=== PATIENT | female | born 1940 | race Hispanic/Latino ===

== ENCOUNTER 2018-01-14 13:13 | Emergency (ER) | payer MEDICARE, OTHER ==
[~2018-01-14] VITALS: Ht 142.2 cm; Wt 73.0 kg
[~2018-01-14 13:13] MED LIST: ALENDRONATE SOD70 MG PO; DIFLUCAN100 MG PO; LASIX20 MG PO; LEVOTHYROXINE50 MCG PO; LOTRISONE CREAM15 GM TOP; METOPROLOL TART25 MG PO; MYRBETRIQ50 MG PO; OXYBUTYNIN CHLOR5 M1 PO; PRAVASTATIN SOD10 MG PO; RAMIPRIL5 MG PO; Z DILTIAZEM PO; Z TIROSINT PO; Z.0.METOPROLOL SUCC2 PO; Z.0.NEXIUM40 MG PO; Z.0.SIMVASTATIN40 MG PO
--- NOTE | 2018-01-14 14:24 | Diagnostic Imaging Report ---
Exam: Head CT without contrast History: Trauma, fall, hit head Comparison studies: None Technique: Axial images were obtained from the skull base to the vertex. Coronal and sagittal images reconstructed from the axial data. Dose modulation, iterative reconstruction, and/or weight based adjustment of the mA/kV was utilized to reduce the radiation dose to as low as reasonably achievable. Radiation dose: Total DLP: None are 21 mGy*cm. Estimated effective dose: DLP x 0.015 Intravenous contrast: None Findings: Scalp: Large 6.5 cm AP x 1.2 cm TV left frontal scalp hematoma. Bones: No fractures, blastic or lytic lesions. Brain sulci: Mildly prominent. Ventricles: Mild compensatory dilatation. No hydrocephalus. Extra-axial spaces: Mildly prominent extra axial spaces CSF density along the superior cerebellar convexity with adjacent focal remodeling of the occipital calvarium with local mass effect on the torcula and cerebellum is most compatible with small congenital arachnoid cyst. Parenchyma: No mass, acute hemorrhage or acute cortical vascular insults. Scattered and mildly confluent ill-defined hypodensities in the supratentorial white matter are nonspecific but most compatible with chronic microvascular ischemic changes. Disproportionate volume loss along the left greater than right anteromedial temporal lobes and hippocampi. Sellar/suprasellar region: No abnormalities. Craniocervical junction: Patent foramen magnum. No Chiari one malformation. Incidental findings: Atherosclerotic calcifications in the carotid siphons and near the vertebral basilar junction. Chronic inflammatory changes in the right mastoids which are partially opacified with sclerotic changes. IMPRESSION: 1. Large left frontal scalp hematoma without fracture. 2. No acute intracranial abnormalities. 3. Moderate chronic microvascular ischemic changes. 4. Mild generalized volume loss. Disproportionate volume loss along the anteromedial temporal lobes and hippocampi (left greater than right) which can be seen along the Alzheimer/dementia spectrum in the appropriate clinical setting. Signed by: Dr. River Hawley M.D. on 01/14/2018 2:21 PM
[2018-01-14 15:40] VITALS: BP 121/69
--- OUTSIDE RECORDS SUMMARY | 2018-01-22 12:05 | XMS REPORT ---
Author [facility] Address Unknown Phone Unavailable Care Team Providers Care Animal Caretaker Supervisor Name Role Phone Sowmya LAM Unavailable Unavailable Alhaji RICO Unavailable Unavailable Problems This patient has no known problems. Allergies, Adverse Reactions, Alerts This patient has no known allergies or adverse reactions. Medications This patient has no known medications. Results Test Description Test Time Test Comments Text Results Atomic Results Result Comments CT BRAIN WO 2018-01-14 14:15:00 [place] [address] Patient Name: TAMIKA KELLY MR #: [id number] : 1940 Age/Sex: 77/F Req #: [id number] Adm Physician: Ordered by: TORIE LAWRENCE ROUGHER OPERATOR Report #: [id number] Location: ER Room/Bed: Procedure: [id number] CT/CT BRAIN WO Exam Date: 01/14/18 Exam Time: 1335 REPORT STATUS: Signed Exam: Head CT without contrast History: Trauma, fall, hit head Comparison studies: None Technique: Axial images were obtained from the skull base to the vertex. Coronal and sagittal images reconstructed from the axial data. Dose modulation, iterative reconstruction, and/or weight based adjustment of the mA/kV was utilized to reduce the radiation dose to as low as reasonably achievable. Radiation dose: Total DLP: None are 21 mGy*cm. Estimated effective dose: DLP x 0.015 Intravenous contrast: None Findings: Scalp: Large 6.5 cm AP x 1.2 cm TV left frontal scalp hematoma. Bones: No fractures, blastic or lytic lesions. Brain sulci: Mildly prominent. Ventricles: Mild compensatory dilatation. No hydrocephalus. Extra-axial spaces: Mildly prominent extra axial spaces CSF density along the superior cerebellar convexity with adjacent focal remodeling of the occipital calvarium with local mass effect on the torcula and cerebellum is most compatible with small congenital arachnoid cyst. Parenchyma: No mass, acute hemorrhage or acute cortical vascular insults. Scattered and mildly confluent ill-defined hypodensities in the supratentorial white matter are nonspecific but most compatible with chronic microvascular ischemic changes. Disproportionate volume loss along the left greater than right anteromedial temporal lobes and hippocampi. Sellar/suprasellar region: No abnormalities. Craniocervical junction: Patent foramen magnum. No Chiari one malformation. Incidental findings: Atherosclerotic calcifications in the carotid siphons and near the vertebral basilar junction. Chronic inflammatory changes in the right mastoids which are partially opacified with sclerotic changes. IMPRESSION: 1. Large left frontal scalp hematoma without fracture. 2. No acute intracranial abnormalities. 3. Moderate chronic microvascular ischemic changes. 4. Mild generalized volume loss. Disproportionate volume loss along the anteromedial temporal lobes and hippocampi (left greater than right) which can be seen along the Alzheimer/dementia spectrum in the appropriate clinical setting. Signed by: Dr. Barb Hawley M.D. on 01/14/2018 2:21 PM Dictated By: BARB HAWLEY MD 1421 Transcribed By: MARY on 01/14/18 1421 COPY TO: TORIE LAWRENCE ROUGHER OPERATOR CHEST SINGLE (NOT PORTABLE) 2017-12-05 20:06:00 [place] [address] Patient Name: TAMIKA KELLY MR #: [id number] : 1940 Age/Sex: 76/F Req #: [id number] Adm Physician: Ordered by: REGGIE LEUNG NP Report #: [id number] Location: ER Room/Bed: Procedure: [id number] DX/CHEST SINGLE (NOT PORTABLE) Exam Date: 12/05/17 Exam Time: 1949 REPORT STATUS: Signed EXAMINATION: CHEST SINGLE (NOT PORTABLE) INDICATION: COMPARISON: Chest radiograph 07/24/2011 FINDINGS: AP view TUBES and LINES: None. LUNGS: Low lung volumes. Bibasilar atelectasis, unchanged. Central pulmonary vascular congestion. PLEURA: No pleural effusion or pneumothorax. HEART AND MEDIASTINUM: Stable mildly prominent cardiac silhouette. Mild calcifications in the aortic arch, unchanged. BONES AND SOFT TISSUES: Degenerative changes of both acromioclavicular joints. Soft tissues are unremarkable. UPPER ABDOMEN: No free air under the diaphragm. IMPRESSION: Stable mild enlargement of the cardiac silhouette with associated central pulmonary congestion. Signed by: Dr. Arlet Drake M.D. on 12/05/2017 8 :07 PM Dictated By: ARLET DRAKE MD 06 Transcribed By: MARY on 12/05/172006 COPY TO: REGGIE LEUNG NP
== END 2018-01-14 15:24 | disposition home or self-care (01) ==
LOC: ER 13:13
DX: S00.83XA Contusion of other part of head, initial encounter (principal); W06.XXXA Fall from bed, initial encounter; Y92.003 Bedroom of unspecified non-institutional (private) residence as the place of occurrence of the external cause; F03.90 Unspecified dementia, unspecified severity, without behavioral disturbance, psychotic disturbance, mood disturbance, and anxiety; I10 Essential (primary) hypertension; E78.5 Hyperlipidemia, unspecified; K21.9 Gastro-esophageal reflux disease without esophagitis; E07.9 Disorder of thyroid, unspecified
CPT/HCPCS: 70450; 99283

== ENCOUNTER 2019-02-20 14:06 | Emergency (ER) | payer MEDICARE, OTHER ==
[~2019-02-20] VITALS: Ht 142.2 cm; Wt 73.0 kg
--- NOTE | 2019-02-20 15:19 | Diagnostic Imaging Report ---
EXAMINATION: CHEST SINGLE (PORTABLE) INDICATION: Confusion COMPARISON: Chest radiograph of 12/05/2017 FINDINGS: LINES/TUBES:None LUNGS:The lungs are well-inflated. No focal consolidation. There is perihilar fullness and indistinctness of the pulmonary vasculature. PLEURA:No pleural effusion or pneumothorax. MEDIASTINUM:Cardiomediastinal silhouette is stably enlarged. Atherosclerotic calcifications of the thoracic aorta. BONES/SOFT TISSUES:No acute osseous injury. Old right acromioclavicular injury. ABDOMEN:No free air under the diaphragm. IMPRESSION: Cardiomegaly and mild pulmonary edema. Signed by: iRck Booker MD on 02/20/2019 3:16 PM
--- NOTE | 2019-02-20 15:22 | Diagnostic Imaging Report ---
EXAMINATION: ANKLE 3 + VIEWS RIGHT INDICATION: Ankle pain COMPARISON: None FINDINGS: No acute fracture or dislocation. Alignment is anatomic. The ankle mortise is intact and symmetric. The soft tissues appear unremarkable. Cortical regularity at the distal fibula is likely related to old healed fracture. Small plantar calcaneal spur. Atherosclerotic vascular calcifications. IMPRESSION: No acute osseous injury. Signed by: Rick Booker MD on 02/20/2019 3:19 PM
[2019-02-20] MEDS ORDERED: OXYBUTYNIN CHLOR5 M1 PO (15:27)
[2019-02-20 15:28] LABS: BASOPHILS % 0.1 % (0.0-1.0); EOSINOPHILS # (AUTO) 0.1 (0.0-0.4); EOSINOPHILS % 1.9 % (0.0-6.0); HEMATOCRIT 42.9 % (34.2-44.1); HEMOGLOBIN 14.5 g/dL (12.0-16.0); LYMPHOCYTES # (AUTO) 1.7 (1.0-3.2); LYMPHOCYTES % 22.6 % (18.0-39.1); MEAN CORPUSCULAR HEMOGLOBIN 29.8 pg (28-32); MEAN CORPUSCULAR HGB CONC 33.8 g/dL (31-35); MEAN CORPUSCULAR VOLUME 88.3 fL (81-99); MONOCYTES # (AUTO) 0.6 (0.2-0.8); MONOCYTES % 7.6 % (4.4-11.3); NEUTROPHILS % 67.5 % (38.7-80.0); PLATELET COUNT 237 x10e3/uL (140-360); RED BLOOD COUNT 4.86 x10e6/uL (3.6-5.1); RED CELL DISTRIBUTION WIDTH 13.2 % (11.7-14.4)
[2019-02-20] MEDS ORDERED: KETOROLAC TROMETHAMINE 30 MG/ML VIAL IV ONE (15:34)
[2019-02-20 15:38] LABS: BILIRUBIN,URINE NEGATIVE (NEGATIVE); CLARITY,URINE CLOUDY (CLEAR); COLOR,URINE YELLOW (YELLOW); KETONES,URINE NEGATIVE (NEGATIVE); LEUKOCYTE ESTERASE ,URINE SMALL (NEGATIVE); NITRITE,URINE NEGATIVE (NEGATIVE); PROTEIN,URINE DIPSTICK NEGATIVE (NEGATIVE); URINE UROBILINOGEN 0.2 mg/dL (0.2 - 1)
[2019-02-20] MEDS ORDERED: ONDANSETRON HCL INJ 2MG/ML 2ML 2 MG/ML VIAL IV PRN (15:45)
[2019-02-20 15:47] LABS: ALANINE AMINOTRANSFERASE 17 IU/L (0-55); ALBUMIN 3.1 g/dL (3.5-5.0); ALBUMIN/GLOBULIN RATIO 0.7 (0.8-2.0); ALKALINE PHOSPHATASE 84 IU/L (40-150); ANION GAP 14.2 mmol/L (8-16); BLOOD UREA NITROGEN 14 mg/dL (7-26); BUN/CREATININE RATIO 18 (6-25); CALCIUM 9.4 mg/dL (8.4-10.2); CARBON DIOXIDE 31 mmol/L (22-29); CHLORIDE 101 mmol/L (98-107); CREATINE KINASE 20 IU/L (29-168); CREATININE, SERUM 0.76 mg/dL (0.57-1.11); EST GLOMERULAR FILTRATION RATE > 60 ML/MIN (60-); GLUCOSE 136 mg/dL (74-118); INR 0.93; POTASSIUM 3.2 mmol/L (3.5-5.1); SODIUM 143 mmol/L (136-145)
[2019-02-20 15:50] LABS: BACTERIA,URINE MANY /HPF; EPITHELIAL CELLS,URINE RARE /LPF; WBC,URINE (MAN) 0-5 /HPF (0-5)
[2019-02-20 15:56] LABS: B-TYPE NATRIURETIC PEPTIDE2 32.9 pg/mL (0-100)
[2019-02-20 16:08] LABS: PARTIAL THROMBOPLASTIN TIME 30.7 seconds (23.8-35.5)
[2019-02-20] MEDS ORDERED: POTASSIUM CHLORIDE 20 MEQ TAB CR PO ONE (16:42)
[2019-02-20 16:51] VITALS: BP 154/60
--- NOTE | 2019-02-20 17:12 | Diagnostic Imaging Report ---
Examination: CT head without contrast Clinical Indication: Confusion Technique: Transaxial noncontrast images from the skull base through the vertex were obtained. Sagittal and coronal reformatted images were done. Dose modulation, iterative reconstruction, and/or weight based adjustment of the mA/kV was utilized to reduce the radiation dose to as low as reasonably achievable. Comparison: Head CT performed January 14, 2018. Findings: Scalp: No abnormalities. Bones: Intact. No fractures. No blastic or lytic lesions. Brain sulci: Moderate volume loss for patient's age with predominant involvement of the bilateral hippocampi. Ventricles: No hydrocephalus. Extra-axial space: No acute abnormalities. Superior cerebellar convexity arachnoid cyst, unchanged. Parenchyma: There are mild confluent areas of low-attenuation within subcortical and periventricular white matter, nonspecific, but could represent microvascular ischemic disease. No masses, hemorrhage, or acute or chronic cortical based vascular insults. Suprasellar region: No abnormalities. Craniocervical junction: The foramen magnum is patent. No Chiari one malformation. Incidental findings: Atherosclerotic calcification of the cavernous and supraclinoid internal carotid arteries. Impression: 1. No new acute intracranial abnormality. 2. Resolution of previously seen large left frontal scalp hematoma when compared to prior head CT performed January 14, 2018 3. Unchanged chronic microvascular ischemic change and volume loss with predominance at the bilateral hippocampi which can be seen in Alzheimer's. Signed by: Dr. Mariella Dubose M.D. on 02/20/2019 5:08 PM
== END 2019-02-20 17:41 | disposition home or self-care (01) ==
LOC: ER 14:06
DX: R41.0 Disorientation, unspecified (principal); G30.9 Alzheimer's disease, unspecified; F02.80 Dementia in other diseases classified elsewhere, unspecified severity, without behavioral disturbance, psychotic disturbance, mood disturbance, and anxiety; I10 Essential (primary) hypertension; E78.5 Hyperlipidemia, unspecified; E07.9 Disorder of thyroid, unspecified; K21.9 Gastro-esophageal reflux disease without esophagitis
CPT/HCPCS: 36415; 70450; 71045; 73610; 80053; 81001; 82140; 82150; 82550; 82553; 83605; 83880; 84484; 85025; 85610; 85730; 87040; 87086; 87186; 87400; 93005; 99284; J1885; J2405

== ENCOUNTER 2020-02-02 09:25 | Observation (INO) | payer MEDICARE, OTHER ==
[~2020-02-02] VITALS: Ht 142.2 cm; Wt 73.0 kg
--- NOTE | 2020-02-02 09:32 | Emergency Department Note ---
History of Present Illnes History of Present Illness History of Present Illness This is a 79 year old female with baseline dementia sent to the ED by family for denies weakness and decompensation of the past 2 weeks. Patient is accompanied by daughters who state mother's eating less and more lethargic and unable to sit up on her own. . Arrival Mode: [facility] Onset (how long ago): week(s) Radiation: Reports non-radiation Severity: moderate Duration (how long): week(s) Timing of current episode: constant Progression: worsening Chronicity: recurrent Context: Denies recent illness Relieving factors: none Associated symptoms: Reports confusion, Reports weakness Treatments prior to arrival: none Past Medical/Family History Physician Review I have reviewed the patient's past medical and family history. Any updates have been documented here. Past Medical History Past Medical History: Hypertension, Hypothyroidism, GERD, Hyperlipedemia Other Medical History: Dementia Past Surgical History: Hysterectomy Other Surgery: bladder suspension Social History Smoking Cessation: Never Smoker Other Last Tetanus: unknown Review of Systems ROS Narrative Unable to obtain ROS: Unable to obtain due to, other (baseline dementia, ROS obtained from family) Review of Systems Constitutional: Reports as per HPI, Reports malaise, Reports weakness EENTM: Reports no symptoms Cardiovascular: Reports no symptoms Respiratory: Reports no symptoms Gastrointestinal: Reports no symptoms Genitourinary: Reports no symptoms Musculoskeletal: Reports no symptoms Integumentary: Reports no symptoms Neurological: Reports as per HPI, Reports weakness Psychological: Reports no symptoms Endocrine: Reports no symptoms Hematological/Lymphatic: Reports no symptoms Physical Exam Related Data Allergies: Coded Allergies: No Known Allergies (Unverified , 02/02/20) Vital signs reviewed: Yes Physical Exam CONSTITUTIONAL Constitutional: Present well-developed, Present cachectic, Present ill appearing HENT HENT: Present normocephalic, Present atraumatic, Present oropharynx clear/moist, Present nose normal HENT L/R: Present left ext ear normal, Present right ext ear normal EYES Eyes: Reports PERRL, Reports conjunctivae normal NECK Neck: Present ROM normal PULMONARY Pulmonary: Present effort normal, Present breath sounds normal CARDIOVASCULAR Cardiovascular: Present regular rhythm, Present heart sounds normal, Present capillary refill normal, Present normal rate GASTROINTESTINAL Abdominal: Present soft, Present nontender, Present bowel sounds normal GENITOURINARY Genitourinary: Present exam deferred SKIN Skin: Present warm, Present dry MUSCULOSKELETAL Musculoskeletal: Present ROM normal NEUROLOGICAL Neurological: Present alert PSYCHOLOGICAL Results Laboratory Lab results reviewed: Yes Laboratory comments Laboratory Tests Test 02/02/20 12:52 02/02/20 10:46 02/02/20 10:35 02/02/20 09:45 Urine Color Yellow (YELLOW) Urine Clarity Clear (CLEAR) Urine pH 6.5 (5 - 7) Urine Specific [place] >=1.030 (1.010-1.025) Urine Protein Negative (NEGATIVE) Urine Glucose (UA) Negative (NEGATIVE) Urine Ketones Negative (NEGATIVE) Urine Blood Negative (NEGATIVE) Urine Nitrite Negative (NEGATIVE) Urine Bilirubin Negative (NEGATIVE) Urine Urobilinogen 0.2 mg/dL (0.2 - 1) Urine Leukocyte Esterase Negative (NEGATIVE) Urine RBC 0-5 /HPF (0-5) Urine WBC 0-5 /HPF (0-5) Urine Epithelial Cells Few /LPF (NONE) Urine Bacteria Rare /HPF (NONE) Sodium Level 141 mmol/L (136-145) Potassium Level 3.3 mmol/L (3.5-5.1) Chloride Level 104 mmol/L (98-107) Carbon Dioxide Level 25 mmol/L (22-29) Anion Gap 15.3 mmol/L (8-16) Blood Urea Nitrogen 12 mg/dL (7-26) Creatinine 0.70 mg/dL (0.57-1.11) Estimat Glomerular Filtration Rate > 60 ML/MIN (60-) BUN/Creatinine Ratio 17 (6-25) Glucose Level 94 mg/dL (74-118) Calcium Level 9.4 mg/dL (8.4-10.2) Total Bilirubin 0.5 mg/dL (0.2-1.2) Aspartate Amino Transf (AST/SGOT) 22 IU/L (5-34) Alanine Aminotransferase (ALT/SGPT) 14 IU/L (0-55) Alkaline Phosphatase 76 IU/L (40-150) Ammonia 97 UG/DL (31-123) Creatine Kinase 41 IU/L (29-168) Creatine Kinase MB 2.10 ng/mL (0-4.3) Troponin I < 0.001 ng/mL (0-0.300) Total Protein 7.3 g/dL (6.5-8.1) Albumin 3.5 g/dL (3.5-5.0) Globulin 3.8 g/dL (2.3-3.5) Albumin/Globulin Ratio 0.9 (0.8-2.0) Lipase 49 U/L (8-78) White Blood Count 8.25 x10e3/uL (4.8-10.8) Red Blood Count 5.00 x10e6/uL (3.6-5.1) Hemoglobin 14.6 g/dL (12.0-16.0) Hematocrit 44.5 % (34.2-44.1) Mean Corpuscular Volume 89.0 fL (81-99) Mean Corpuscular Hemoglobin 29.2 pg (28-32) Mean Corpuscular Hemoglobin Concent 32.8 g/dL (31-35) Red Cell Distribution Width 13.2 % (11.7-14.4) Platelet Count 187 x10e3/uL (140-360) Neutrophils (%) (Auto) 65.0 % (38.7-80.0) Lymphocytes (%) (Auto) 26.3 % (18.0-39.1) Monocytes (%) (Auto) 6.9 % (4.4-11.3) Eosinophils (%) (Auto) 1.2 % (0.0-6.0) Basophils (%) (Auto) 0.4 % (0.0-1.0) Neutrophils # (Auto) 5.4 (2.1-6.9) Lymphocytes # (Auto) 2.2 (1.0-3.2) Monocytes # (Auto) 0.6 (0.2-0.8) Eosinophils # (Auto) 0.1 (0.0-0.4) Basophils # (Auto) 0.0 (0.0-0.1) Absolute Immature Granulocyte (auto 0.02 x10e3/uL (0-0.1) B-Type Natriuretic Peptide 12.9 pg/mL (0-100) Imaging Imaging results reviewed: Yes Impressions IMPRESSION: 1. Negative for acute abdominopelvic process. 2. Diastases of the anterior abdominal wall musculature with superimposed umbilical hernia containing nondilated loops of small bowel and colon. Negative for bowel obstruction or evidence of incarceration. 3. Uncomplicated diffuse sigmoid diverticulosis. 4. Moderate hiatal hernia. 5. Postsurgical change of cholecystectomy. 6. Solitary 5 mm right middle lobe nodule. If patient is at high risk for lung cancer consider optional CT chest follow-up at 12 months. If patient is low risk for lung cancer no follow-up is required. Assessment & Plan Medical Decision Making MDM 79-year-old female arrived to the ED by family with concerns of reduced oral intake, worsening dementia and change in mental status. No acute abnormalities noted lab work or imaging, however, given patient's change in mental status she was admitted for further workup and management. States patient had a UTI and was on antibiotics, initial UA in the ED was unremarkable, urine culture sent to ensure if no multidrug resistant organisms are present. Assessment & Plan Final Impression: (1) AMS (altered mental status) (2) Failure to thrive Depart Disposition: ADMITTED Home Meds Reported Medications Oxybutynin Chloride (OXYBUTYNIN CHLORIDE ER) 5 Mg Tab.er.24, 5 MG PO HS 02/20/19 Alendronate Sodium (ALENDRONATE SODIUM) 70 Mg Tablet, 70 MG PO WEEKLY TAKE ON Sunday12/05/17 Levothyroxine Sodium (LEVOTHYROXINE SODIUM) 50 Mcg Tablet, 50 MCG PO DAILY, #30 TAB 12/05/17 Metoprolol Tartrate (METOPROLOL TARTRATE) 25 Mg Tablet, 25 MG PO BID, TAB 12/05/17 Pravastatin Sodium (PRAVASTATIN SODIUM) 10 Mg Tablet, 10 MG PO DAILY 12/05/17 Furosemide (LASIX) 20 Mg Tablet, 20 MG PO DAILY, #30 TAB 03/25/14 NAZIA HARRY, Feb 02, 2020 09:31
[2020-02-02 10:02] LABS: BASOPHILS % 0.4 % (0.0-1.0); EOSINOPHILS # (AUTO) 0.1 (0.0-0.4); EOSINOPHILS % 1.2 % (0.0-6.0); HEMATOCRIT 44.5 % (34.2-44.1); HEMOGLOBIN 14.6 g/dL (12.0-16.0); LYMPHOCYTES # (AUTO) 2.2 (1.0-3.2); LYMPHOCYTES % 26.3 % (18.0-39.1); MEAN CORPUSCULAR HEMOGLOBIN 29.2 pg (28-32); MEAN CORPUSCULAR HGB CONC 32.8 g/dL (31-35); MONOCYTES # (AUTO) 0.6 (0.2-0.8); MONOCYTES % 6.9 % (4.4-11.3); NEUTROPHILS # (AUTO) 5.4 (2.1-6.9); PLATELET COUNT 187 x10e3/uL (140-360); RED CELL DISTRIBUTION WIDTH 13.2 % (11.7-14.4)
--- NOTE | 2020-02-02 10:21 | Diagnostic Imaging Report ---
TECHNIQUE: Frontal view of the chest. INDICATION: ^Y ^AMS ^[id number] ^0950 COMPARISON: 02/20/2019 DISCUSSION: Limited evaluation due to portable technique. Lines and hardware: Overlying EKG leads are noted. Heart and mediastinum: Mild cardiomegaly and tortuous thoracic aorta are stable. Lungs and pleura: No definite new focal consolidation. Central vascular congestion and prominent interstitial markings are noted. Negative for large effusion or pneumothorax. Soft tissues and bones: No acute abnormality. Stable severe degenerative changes of the shoulder joints with full-thickness rotator cuff tears. IMPRESSION: Stable cardiomegaly and central vascular congestion. No definite new focal infiltrate. Signed by: Lyle Stephen MD on 02/02/2020 10:17 AM
--- NOTE | 2020-02-02 10:45 | Diagnostic Imaging Report ---
EXAMINATION: Head CT HISTORY: 79-year-old female with alteration of consciousness, weakness COMPARISON: Head CT 02/20/2019 TECHNIQUE: Helical axial images of the head were obtained. Dose modulation, iterative reconstruction, and/or weight based adjustment of the mA/kV was utilized to reduce the radiation dose to as low as reasonably achievable. FINDINGS: Parenchyma: 1. Persistent moderate chronic microvascular ischemic changes. 2. No mass or hemorrhage. No CT evidence of acute territorial vascular insult. Extra-axial spaces:Unchanged superior cerebellar benign arachnoid cyst . Brain volume: Disproportionate volume loss along the left greater than right anteromedial temporal lobes and hippocampi, which can be seen in patient's with Alzheimer's disease in the correct clinical setting. Ventricles: No hydrocephalus or displacement. Arteries: No density suggestive of thrombus. Dural sinuses: No abnormal density. Foramen magnum: No mass, Chiari malformation, or basilar invagination. Sella: No obvious mass. Paranasal/mastoid sinuses: Imaged portions unremarkable. Skull/Scalp: No lytic or blastic lesions. No fractures. IMPRESSION: 1. No acute intracranial hemorrhage or cortical infarcts. 2. Stable moderate chronic microvascular ischemic changes compared to CT of 02/20/2019. 3. Persistent disproportionate medial temporal/hippocampal volume loss as above. Signed by: Dr. Michaela Bell M.D. on 02/02/2020 10:42 AM
[2020-02-02 11:01] LABS: CLARITY,URINE CLEAR (CLEAR); COLOR,URINE YELLOW (YELLOW)
[2020-02-02 11:02] LABS: BILIRUBIN,URINE NEGATIVE (NEGATIVE); KETONES,URINE NEGATIVE (NEGATIVE); LEUKOCYTE ESTERASE ,URINE NEGATIVE (NEGATIVE); NITRITE,URINE NEGATIVE (NEGATIVE); PROTEIN,URINE DIPSTICK NEGATIVE (NEGATIVE); URINE UROBILINOGEN 0.2 mg/dL (0.2 - 1)
[2020-02-02 11:05] LABS: BACTERIA,URINE RARE /HPF; EPITHELIAL CELLS,URINE FEW /LPF; RBC,URINE 0-5 /HPF (0-5); WBC,URINE (MAN) 0-5 /HPF (0-5)
[2020-02-02 11:15] LABS: ALANINE AMINOTRANSFERASE 14 IU/L (0-55); ALBUMIN 3.5 g/dL (3.5-5.0); ALBUMIN/GLOBULIN RATIO 0.9 (0.8-2.0); ALKALINE PHOSPHATASE 76 IU/L (40-150); ANION GAP 15.3 mmol/L (8-16); BLOOD UREA NITROGEN 12 mg/dL (7-26); BUN/CREATININE RATIO 17 (6-25); CALCIUM 9.4 mg/dL (8.4-10.2); CARBON DIOXIDE 25 mmol/L (22-29); CHLORIDE 104 mmol/L (98-107); CREATINE KINASE 41 IU/L (29-168); EST GLOMERULAR FILTRATION RATE > 60 ML/MIN (60-); GLUCOSE 94 mg/dL (74-118); POTASSIUM 3.3 mmol/L (3.5-5.1); SODIUM 141 mmol/L (136-145)
--- NOTE | 2020-02-02 12:24 | Diagnostic Imaging Report ---
CT of the abdomen and pelvis with contrast TECHNIQUE: CT of the abdomen and pelvis WITH intravenous contrast and WITHOUT oral contrast. Dose modulation, iterative reconstruction, and/or weight-based adjustment of the mA/kV was utilized to reduce the radiation dose to as low as reasonably achievable. IV CONTRAST: 100 mL of Isovue-370 ORAL CONTRAST: None RADIATION DOSE: Total DLP: 674 mGy*cm COMPLICATIONS: None INDICATION: ^Y ^AMS ^[id number] ^1150. COMPARISON: None. FINDINGS: LOWER THORAX: Calcified granuloma is noted at the left lung base. Moderate hiatal hernia is noted. A 5 mm right middle lobe nodule is noted on image #3. HEPATOBILIARY: No focal hepatic lesions. Gallbladder is surgically absent. Focal fatty infiltration along the falciform ligament is noted. No biliary ductal dilatation. SPLEEN: No splenomegaly. PANCREAS: No focal masses or ductal dilatation. ADRENALS: No adrenal nodules. KIDNEYS/URETERS: Symmetric cortical enhancement without hydronephrosis. Ureters are not dilated. Negative for surrounding inflammatory changes. PELVIC ORGANS/BLADDER: Urinary bladder is unremarkable. Uterus is surgically absent. PERITONEUM/RETROPERITONEUM: No free air or fluid. [place] anterior abdominal hernia is noted with diastases of the abdominal wall/or with superimposed umbilical hernia which contains nondilated loops of small bowel. LYMPH NODES: No lymphadenopathy. VESSELS: Unremarkable. GI TRACT: Negative for bowel obstruction. Stomach is decompressed. Moderate colonic stool retention is noted. Numerous diverticula are identified of the sigmoid colon without surrounding inflammatory changes. Normal appendix is noted. BONES AND SOFT TISSUES: No acute osseous abnormality. Moderate to severe multilevel degenerative changes of the spine are noted. Negative for suspicious lytic or blastic lesion. Soft tissues are unremarkable. IMPRESSION: 1. Negative for acute abdominopelvic process. 2. Diastases of the anterior abdominal wall musculature with superimposed umbilical hernia containing nondilated loops of small bowel and colon. Negative for bowel obstruction or evidence of incarceration. 3. Uncomplicated diffuse sigmoid diverticulosis. 4. Moderate hiatal hernia. 5. Postsurgical change of cholecystectomy. 6. Solitary 5 mm right middle lobe nodule. If patient is at high risk for lung cancer consider optional CT chest follow-up at 12 months. If patient is low risk for lung cancer no follow-up is required. Signed by: Lyle Stephen MD on 02/02/2020 12:21 PM
[2020-02-02] MEDS ORDERED: CEFEPIME 1GM/NS 0.9% 50 ML 50 ML IV SCH (12:40)
[2020-02-02 13:30] VITALS: BP 151/98
--- NOTE | 2020-02-02 13:30 | NUR ---
PATIENT RECEIVED FROM ER PER STRETCHER ALERT AND ORIENTED X 1. MOSTLY TRINIDADIAN SPEAKING, DAUGHTER AT BED SIDE. SKIN WARM AND DRY TO TOUCH. RESPIRATION EVEN AND UNLABORED, ABDOMEN SOFT, LARGE, AND ROUND WITH + BS. REQUESTED AND RECEIVED A CUP OF ICE WATER. TELEMETRY BOX [address] BED IN LOWER POSITION, CALL LIGHT AT REACH, BED ALARM ACTIVATED. FAMILY MEMBER AT BED SIDE.
[2020-02-02 13:32] VITALS: BP 151/98
[2020-02-02] MEDS ORDERED: SODIUM CHLORIDE 0.9% 50ML 50 ML ONE (13:38)
[2020-02-02] MEDS ORDERED: IOPAMIDOL 370 MG/ML 200 ML INFUS..BTL INJ ONE (13:38)
--- NOTE | 2020-02-02 15:55 | NUR ---
PATIENT IN BED TALKING TO SELF, REDIRECTED BY FAMILY MEMBER AND STAFF. REPOSITIONED IN BED. CALL LIGHT AT REACH.
[2020-02-02] MEDS: LORAZEPAM INJ 2 MG/ML VIAL IV PRN ×2 (17:00→23:00)
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
[2020-02-02] MEDS ORDERED: ACETAMINOPHEN 325 MG TAB PO PRN (17:45)
[2020-02-02] MEDS ORDERED: ONDANSETRON HCL INJ 2MG/ML 2ML 2 MG/ML VIAL IV PRN (17:45)
[2020-02-02] MEDS ORDERED: HYDRALAZINE HCL 20 MG/ML VIAL IV PRN (17:45)
[2020-02-02 17:54] VITALS: BP 125/98
--- NOTE | 2020-02-02 17:55 | NUR ---
PATIENT IN BED WITH HEAD OF BED ELEVATED, NO MORE AGITATION NOTED. WILL CONTINUE TO MONITOR.
[2020-02-02] MEDS ORDERED: POTASSIUM CHLORIDE 20 MEQ TAB CR PO ONE (18:00)
[2020-02-02] MEDS: METOPROLOL TARTRATE 25 MG TAB PO SCH (18:06)
--- NOTE | 2020-02-02 19:04 | NUR ---
BED SIDE SHIFT REPORT GIVEN TO ON COMING NURSE. PATIENT IN BED RESTING WITH NO S/S OF DISTRESS. CALL LIGHT AT REACH.
[2020-02-02] MEDS ORDERED: LORAZEPAM INJ 2 MG/ML VIAL IV ONE (19:30)
--- NOTE | 2020-02-02 19:36 | NUR ---
PATIENT HAS LEFT FOR MRI, ATIVAN GIVEN PREVIOUSLY PER PHYSICIAN'S ORDERS.
[2020-02-02 19:40] VITALS: BP 117/74
[2020-02-02] MEDS: OXYBUTYNIN CHLORIDE XL 5 MG TAB PO SCH (20:29)
[2020-02-02 20:30] VITALS: BP 117/74
--- NOTE | 2020-02-02 22:23 | Diagnostic Imaging Report ---
History: Altered mental status. Comparison studies: Head CTs on 02/20/2019 and 02/02/2020 Technique: Sagittal T2; axial DWI, FLAIR, MPGR, T1, Coronal FLAIR. Intravenous contrast: None Findings: Scalp: Normal in signal . No masses . Bone marrow: Normal in signal intensity. Extra-axial: No masses or fluid collections. Brain sulci: Mildly prominent. Ventricles: Moderately prominent there is disproportionate dilatation of the left temporal horn is probably due to volume loss in the left temporal pole perhaps due to previous trauma. No acute hydrocephalus. Parenchyma: Multiple T2 FLAIR hyperintense foci in the periventricular, supratentorial white matter and the bones are nonspecific microvascular ischemic changes. No masses, hemorrhage, acute or chronic cortical ischemic insults. Suprasellar region: No abnormalities. Craniocervical junction: No abnormalities. Patent foramen magnum. No Chiari one malformation. Vessels: Normal flow-voids in the arteries and sinuses. IMPRESSION: 1. No acute abnormalities in spite of motion artifacts. 2. No changes when compared to the most recent head CT on 02/02/2020 Chronic findings: Mild generalized volume loss. Moderately dilated ventricles but no acute hydrocephalus. Moderate microvascular ischemic changes in the supratentorial white matter and in the rocky Signed by: Dr. Ag Quiroz M.D. on 02/02/2020 10:19 PM
--- NOTE | 2020-02-02 23:45 | NUR ---
PATIENT PRESENTS AGITATION BEGAN TO MOVE ALL OVER BED AND REMOVE TELEMONITOR AND GOWN. ATIVAN WAS GIVEN ORDERED. PATIENT NOW RESTING IN BED COMFORTABLY, WILL CONTINUE TO MONITOR.
[2020-02-03] VITALS (8 sets, daily range): BP systolic 93–153; BP diastolic 57–74
[2020-02-03] MEDS ORDERED: LEVOTHYROXINE SODIUM 50 MCG TAB PO SCH (06:00)
[2020-02-03] MEDS: LORAZEPAM INJ 2 MG/ML VIAL IV PRN ×3 (06:10→13:25)
[2020-02-03 06:54] LABS: BASOPHILS % 0.1 % (0.0-1.0); EOSINOPHILS # (AUTO) 0.1 (0.0-0.4); EOSINOPHILS % 1.2 % (0.0-6.0); HEMATOCRIT 41.2 % (34.2-44.1); HEMOGLOBIN 13.9 g/dL (12.0-16.0); LYMPHOCYTES # (AUTO) 1.8 (1.0-3.2); LYMPHOCYTES % 22.4 % (18.0-39.1); MEAN CORPUSCULAR HEMOGLOBIN 30.3 pg (28-32); MEAN CORPUSCULAR HGB CONC 33.7 g/dL (31-35); MONOCYTES # (AUTO) 0.6 (0.2-0.8); MONOCYTES % 7.1 % (4.4-11.3); NEUTROPHILS # (AUTO) 5.5 (2.1-6.9); PLATELET COUNT 187 x10e3/uL (140-360); RED BLOOD COUNT 4.58 x10e6/uL (3.6-5.1); RED CELL DISTRIBUTION WIDTH 13.2 % (11.7-14.4)
[2020-02-03 07:45] LABS: ALANINE AMINOTRANSFERASE 13 IU/L (0-55); ALBUMIN 3.2 g/dL (3.5-5.0); ALBUMIN/GLOBULIN RATIO 0.9 (0.8-2.0); ALKALINE PHOSPHATASE 68 IU/L (40-150); ANION GAP 14.5 mmol/L (8-16); BLOOD UREA NITROGEN 12 mg/dL (7-26); BUN/CREATININE RATIO 17 (6-25); CALCIUM 8.9 mg/dL (8.4-10.2); CARBON DIOXIDE 25 mmol/L (22-29); CHLORIDE 106 mmol/L (98-107); CREATININE, SERUM 0.69 mg/dL (0.57-1.11); EST GLOMERULAR FILTRATION RATE > 60 ML/MIN (60-); GLUCOSE 100 mg/dL (74-118); POTASSIUM 3.5 mmol/L (3.5-5.1); SODIUM 142 mmol/L (136-145)
--- NOTE | 2020-02-03 08:15 | NUR ---
RECEIVED PATIENT SLEEPING. RESPIRATIONS EVEN AND BREATHING UNLABORED. PT IN NO DISTRESS. NO C/O PAIN VERBALIZED AT THIS TIME. TELE APPLIED. WILL CONTINUE TO MONITOR.
--- NOTE | 2020-02-03 08:24 | NUR ---
WILL NEED PHYSICAL THERAPY NOTES PRIOR TO SUBMITTING CLINICALS, CALLED AND SPOKE WITH SON VITA, HE STATES HE WANTS TO DISCUSS WITH SISTER, SHE HAS BEEN TO [facility] BUT MAY CHOOSE [facility] SINCE Enrike JAIME GOES THERE. HE CALLED BACK AND GAVE CHOICE FOR [facility] SINCE THAT IS WHERE PRIMARY DOC GOES. WILL SUBMIT CLINICALS WHEN GET INFORMATION.
[2020-02-03] MEDS: METOPROLOL TARTRATE 25 MG TAB PO SCH ×2 (09:00→17:55)
[2020-02-03] MEDS: FUROSEMIDE 20 MG TAB PO SCH (11:30)
[2020-02-03 12:31] LABS: CREATINE KINASE MB 1.8 ng/mL (0-4.3)
--- NOTE | 2020-02-03 14:52 | NUR ---
Nutrition Screen Note RD Recommendation for Physician: Continue diet as ordered Plan of Care: RD following, monitoring for tolerance and adequacy Nutrition reason for involvement: RN Consult Primary Diagnose(s):Altered mental status/failure to thrive Ht:56 in Wt:161lb BMI: 36.1kg/m2 IBW:80lb RD Assessment:(02/03/2020) Initial encounter with patient. Visited Pt with nurse on duty that ordered nutrition consult. Pt with an altered mental status who is Danish speaking. Pt needs to be fed. Poor dentition/missing teeth/partial dentition, but was able to tolerate and chew a regular consistency without difficulty. Pt had a dose of Ativan the night before. No N,V,D reported. Can provide an oral supplement to maximize nutrition. Pt may discharge to home soon. Current Diet: Cardiac diet Malnutrition Evaluation (02/03/2020) The patient does not meet criteria for a specified degree of malnutrition at this time. Will re-evaluate at follow-up as appropriate. Diet Adequacy: Meeting calorie needs, Meeting protein needs, Meeting fluid needs Tolerance: Tolerating PO Nutrition Care Level: Rico Rodriguez RD,LD[facility]
[2020-02-03] MEDS: FAMOTIDINE 20 MG TAB PO SCH (17:55)
[2020-02-03] MEDS ORDERED: POTASSIUM CHLORIDE 20 MEQ TAB CR PO NR ×2 (18:00→19:30)
--- NOTE | 2020-02-03 19:12 | NUR ---
RECEIVED PT IN BED AOX3 ,DENIES PAIN RESPIRATIONS ARE EVEN AND UNLABORED .SKIN WARM AND DRY TO TOUCH CALL LIGHT WITH IN REACH .CONTINUE TO MONITOR . Addendum: 02/03/20 at 1935 by Carie Mayfield RN WRONG PT
--- NOTE | 2020-02-03 19:36 | NUR ---
RECEIVED PT IN BED SLEEPING ,RESPIRATIONS ARE EVEN AND UNLABORED .CALL LIGHT WITH IN REACH FAMILY AT THE BEDSIDE .PT IS DNAR .FAMILY AT THE BEDSIDE CALL LIGHT WITH IN REACH ,CONTINUE TO MONITOR .
--- NOTE | 2020-02-03 19:44 | NUR ---
PT RESTING IN BED. RESPIRATIONS EVEN AND BREATHING UNLABORED. PT IN NO DISTRESS AND NO C/O OF PAIN VERBALIZED. TELE APPLIED. BED ALARM ON. SON AT THE BEDSIDE. BEDSIDE SHIFT REPORT GIVEN TO ONCOMING NURSE.
[2020-02-03] MEDS: OXYBUTYNIN CHLORIDE XL 5 MG TAB PO SCH (21:34)
[2020-02-03] MEDS ORDERED: LORAZEPAM INJ 2 MG/ML VIAL IM PRN (21:45)
[2020-02-04] VITALS (8 sets, daily range): BP systolic 112–142; BP diastolic 56–99
--- NOTE | 2020-02-04 00:07 | History and Physical ---
PRIMARY CARE PHYSICIAN: Maggie Stephen MD CONSULTING PHYSICIAN: Dr. Francisco Lindsey with Psychiatry. CHIEF COMPLAINT: Altered mental status from baseline. HISTORY OF PRESENT ILLNESS: The patient is a 79-year-old female with baseline dementia, sent to the emergency department via EMS due to decompensation over the past two weeks. The daughter of the patient accompanied her in the emergency department stating that she was eating less, more lethargic, and unable to sit up on her own. She had a recent UTI, was on antibiotics with urinalysis negative in the emergency department. The patient's son, Williams is currently at her bedside in room 285. States that patient has been seeing and speaking to relatives such as her mother. The patient is eating some bread and is in no acute distress. PAST MEDICAL HISTORY: Hypothyroidism, hypertension, hyperlipidemia, GERD, dementia, UTI, osteoporosis, history of bilateral groin rash infection, fungal infection, small abscess with failure of outpatient treatment. PAST SURGICAL HISTORY: Hysterectomy and bladder suspension. FAMILY HISTORY: Noncontributory. SOCIAL HISTORY: The patient is mostly Lao speaking. The patient lives at home with family. No previous use of tobacco, alcohol, or illicit drugs. ALLERGIES: NO KNOWN ALLERGIES. REVIEW OF SYSTEMS: The patient has altered mental status and is unable to answer questions related to ROS. PHYSICAL EXAMINATION: VITAL SIGNS: Temperature 97.5, afebrile, pulse 68, blood pressure 139/68, respirations 16, oxygen saturation 100% on room air. Height 4 feet 8 inches, weight 161 pounds, BMI 36.09. GENERAL: Supine in bed. No acute distress. Confused. LUNGS: Clear to auscultation. Respiratory pattern even and unlabored. HEENT: Sclerae anicteric. NECK: Supple. CARDIOVASCULAR: Regular rate and rhythm without murmur. ABDOMEN: Bowel sounds positive. Soft, obese. EXTREMITIES: No pitting edema. No clubbing, cyanosis, or signs of DVT. NEUROLOGICAL: GCS 13, eye 3, verbal 4, motor 6. The patient opened her eyes and opened her mouth to simple commands. Nonfocal. LABORATORY DATA: WBCs 8.04, hemoglobin 13.9, hematocrit 41.2, platelets 187, neutrophils 69%. Sodium 142, potassium 3.5, chloride 106, CO2 25, BUN 12 and creatinine 0.69, estimated GFR greater than 60, glucose 100, calcium 8.9, total bilirubin 0.6, AST 23, ALT 13, alkaline phosphatase 68. Total protein 6.7, albumin 3.2. TSH 5.166. Today, creatine kinase 51, CK-MB 1.8, troponin I 0.001. Cardiac biomarkers negative x3. Urinalysis done on 02/01, negative. Coronavirus PCR collected on 02/01, is pending. On 02/01, potassium level 3.3, ammonia level 97, and B-type natriuretic peptide 12.9, and lipase 49. IMAGING: CT of the abdomen and pelvis showed negative for acute abdominopelvic process, diastasis of anterior abdominal wall musculature with superimposed umbilical hernia containing nondilated loops of small bowel and colon, negative for bowel obstruction or evidence of incarceration, uncomplicated diffuse sigmoid diverticulosis, moderate hiatal hernia, postsurgical change of cholecystectomy, solitary 5 mm right middle lobe nodule. CT of the brain showed no acute intracranial hemorrhage or cortical infarcts. Stable moderate chronic microvascular ischemic changes compared to CT of 02/20/2019. Persistent disproportionate medial temporal/hippocampal volume loss. Chest x-ray showed stable cardiomegaly and central vascular congestion. No definite new focal infiltrate. MRI of the brain showed no acute abnormalities, no changes when compared with most recent head CT on 02/01. Mild generalized volume loss. Moderately dilated ventricles, but no acute hydrocephalus. Moderate microvascular ischemic changes in the supratentorial white matter and in the rocky. Bilateral carotid Doppler ultrasound on the right side showed no evidence of significant carotid stenosis. On the left side showed evidence of carotid disease without significant carotid stenosis on the preliminary report. ASSESSMENT/PLAN: 1. Altered mental status from baseline with failure to thrive/decreased oral intake, underlying dementia. The patient is currently calm, is beginning to eat some. No acute distress. Psychiatry has been consulted. Appreciate recommendations. Monitor closely. 2. Positive for recent urinary tract infection. Urinalysis in the ER was negative. We will await final culture and sensitivity results. 3. Controlled hypertension. Blood pressure 139/68. Continue home medications and monitor. 4. Hypothyroidism. TSH 5.166. We will increase dose from 50 mcg to 75 mcg daily. 5. Hyperlipidemia. In 2018, lipid levels were within normal limits. Resume home medications. 6. Gastroesophageal reflux disease/prophylaxis. Continue Pepcid. 7. Acute hypokalemia. Potassium level 3.5 (3.3). We will give an extra 20 mEq of potassium chloride orally today. 8. Possible end of life (natural progression). Case was discussed with the patient's son at bedside. Resuscitation status changed from full code to DNR. After discussing with Williams. 9. Obesity with BMI 36.09. Dietary restrictions. DISCHARGE DISPOSITION: [facility] as Dr. Stephen goes there. History and physical, observation status, billing code [id number]. Dictated by Anurag Rivera NP MD CLARI MessinaP/MODL /[id number]
--- NOTE | 2020-02-04 05:27 | NUR ---
PT WAS AGITATED EARLIER IN THE SHIFT .PT PULLED IV OUT .GIVEN ATIVAN IM .PT RESTING NOW CALL LIGHT WITH IN REACH .CONTINUE TO MONITOR
[2020-02-04] MEDS ORDERED: LEVOTHYROXINE SODIUM 50 MCG TAB PO SCH (06:00)
[2020-02-04] MEDS: LEVOTHYROXINE SODIUM 75 MCG TAB PO SCH (06:00)
[2020-02-04 06:36] LABS: BASOPHILS % 0.2 % (0.0-1.0); EOSINOPHILS # (AUTO) 0.1 (0.0-0.4); EOSINOPHILS % 1.3 % (0.0-6.0); HEMATOCRIT 42.8 % (34.2-44.1); HEMOGLOBIN 14.5 g/dL (12.0-16.0); LYMPHOCYTES # (AUTO) 2.8 (1.0-3.2); LYMPHOCYTES % 27.9 % (18.0-39.1); MEAN CORPUSCULAR HEMOGLOBIN 29.9 pg (28-32); MEAN CORPUSCULAR HGB CONC 33.9 g/dL (31-35); MEAN CORPUSCULAR VOLUME 88.2 fL (81-99); MONOCYTES # (AUTO) 0.8 (0.2-0.8); NEUTROPHILS # (AUTO) 6.2 (2.1-6.9); NEUTROPHILS % 62.3 % (38.7-80.0); PLATELET COUNT 238 x10e3/uL (140-360); RED BLOOD COUNT 4.85 x10e6/uL (3.6-5.1); RED CELL DISTRIBUTION WIDTH 13.3 % (11.7-14.4)
[2020-02-04 06:37] LABS: ANION GAP 15.8 mmol/L (8-16); BLOOD UREA NITROGEN 13 mg/dL (7-26); BUN/CREATININE RATIO 19 (6-25); CALCIUM 9.3 mg/dL (8.4-10.2); CARBON DIOXIDE 23 mmol/L (22-29); CHLORIDE 107 mmol/L (98-107); CREATININE, SERUM 0.69 mg/dL (0.57-1.11); EST GLOMERULAR FILTRATION RATE > 60 ML/MIN (60-); GLUCOSE 110 mg/dL (74-118); MAGNESIUM 2.2 MG/DL (1.3-2.1); PHOSPHORUS 3.1 MG/DL (2.3-4.7); POTASSIUM 3.8 mmol/L (3.5-5.1); SODIUM 142 mmol/L (136-145)
--- NOTE | 2020-02-04 06:40 | NUR ---
RECEIVED BEDSIDE SHIFT REPORT FROM OFF GOING NURSE. PATIENT IS IN STABLE CONDITION, NO S/S OF DISTRESS NOTED. CALL LIGHT WITHIN REACH. BED IN THE LOWEST POSITION.
--- NOTE | 2020-02-04 07:06 | NUR ---
BEDSIDE REPORT GIVEN TO THE ONCOMING NURSE
--- NOTE | 2020-02-04 07:35 | NUR ---
BED PUMP APPLIED TO MATTRESS FOR AIR.
[2020-02-04] MEDS: METOPROLOL TARTRATE 25 MG TAB PO SCH ×2 (08:20→17:08)
[2020-02-04] MEDS: FUROSEMIDE 20 MG TAB PO SCH (08:20)
[2020-02-04] MEDS: FAMOTIDINE 20 MG TAB PO SCH ×2 (08:20→17:08)
--- NOTE | 2020-02-04 12:15 | NUR ---
FAXED CLINICALS TO [facility] WITH [facility]RR AND COVID FORM, COMPLETED RTF AND WILL PUT PACKET AT NURSES STATION
[2020-02-04] MEDS: LORAZEPAM INJ 2 MG/ML VIAL IV PRN (15:46)
--- NOTE | 2020-02-04 16:35 | NUR ---
SENT TO R1 FOR LOC DETERMINATION OBS DAY 2 AWAITING SNF AUTH
[2020-02-04] MEDS ORDERED: OLANZAPINE 5 MG TAB PO PRN (16:45)
[2020-02-04] MEDS ORDERED: HALOPERIDOL LACTATE 5 MG/ML VIAL IM PRN (16:45)
--- NOTE | 2020-02-04 19:20 | NUR ---
BEDSIDE SHIFT REPORT GIVEN TO ONCOMING NURSE. PATIENT IS RESTING IN BED. NO ACUTE DISTRESS NOTED AT THIS TIME. CALL LIGHT WITHIN REACH. BED IN THE LOWEST POSITION.
--- NOTE | 2020-02-04 19:59 | NUR ---
RECEIVED PT IN BED SLEEPING ,RESPIRATIONS ARE EVEN AND UNLABORED .CALL LIGHT WITH IN REACH FAMILY AT THE BEDSIDE .CALL LIGHT WITH IN REACH ,CONTINUE TO MONITOR
[2020-02-04] MEDS: OXYBUTYNIN CHLORIDE XL 5 MG TAB PO SCH (20:38)
--- NOTE | 2020-02-04 22:20 | Consultation ---
DATE OF CONSULTATION: 02/04/2020 Psychiatric Consultation The patient evaluated and events noted. HISTORY OF PRESENT ILLNESS: The patient is a 79-year-old female, admitted to the hospital for altered mental status. Psychiatric consultation is called to evaluate the patient's psychosis. As per the medical record, the patient recently had a UTI. She also has history of dementia. She sent to the ER due to decompensation over the last two 2 weeks or so. Daughter reported to the ER staff that the patient is eating less, more lethargic, unable to stand up on her own. She has history of hypothyroid, hypertension, hyperlipidemia, GERD, dementia, UTI, osteoporosis, fungal infection and abscess. Upon evaluation today, the patient is found to be lying on the bed. She is sleeping. The patient recently received p.r.n. IV Ativan as per nursing staff. The patient has been yelling and screaming out loud as per nurse. Last night, she pulled out her IV lines. Collaborative report from the son, who reports that the patient has a history of dementia. She is seeing and she is talking to her relatives, who long ago. At home, she has been increasingly confused for last week or 2, attending to her people. At home, she is weak, falling and losing balance more or so. PAST PSYCHIATRIC HISTORY: The patient has history of dementia. She does not drink alcohol or use any drugs. FAMILY HISTORY: Sister and daughter with dementia. SOCIAL HISTORY: The patient lives with her daughter. MENTAL STATUS EXAM: The patient is elderly female. She is sleeping at this time. Psychomotor state is calm. Affect is flat. Unable to assess further due to her mentation. CURRENT MEDICATIONS: 1. Ativan 0.5 IV q.6 hours as needed. 2. Metoprolol. 3. Lasix. 4. Pepcid. 5. Synthroid. 6. Oxybutynin. 7. Hydralazine. 8. Ondansetron. 9. Acetaminophen. CURRENT LABORATORY DATA: Sodium 142, potassium 3.8, chloride 107, CO2 23, BUN 13, and creatinine 0.69. WBC 10, RBC 4.85, hemoglobin 14.5, hematocrit 42.8, and platelets 238. ASSESSMENT: 1. Unspecified psychosis/rule out delirium. 2. Unspecified dementia with behavior disturbances. PLAN: 1. Continue with Ativan p.r.n. IV. 2. Haldol 2 mg IM q.6 hours as needed. 3. Add Zyprexa 2.5 mg p.o. q.6 hours as needed. 4. Ammonia level is within range. CT scan of the head showed no acute infarction. MRI, no acute finding. 5. Discussed further treatment plan with family members and nursing staff. Thank you for this consultation and we will continue to follow her during her hospital stay. Dictated by Susan Lares PA-C Francisco Lindsey MD QTV/MODL /[id number]
--- NOTE | 2020-02-04 22:25 | Progress Note ---
DATE: 02/04/2020 CONSULTING PHYSICIAN: Francisco Lindsey M.D., Psychiatry SUBJECTIVE: The patient is currently supine in bed, calm, in no acute distress. Per nursing staff, the patient was confused, yelling last night and also yelling earlier today. OBJECTIVE: VITAL SIGNS: Temperature 97.7, pulse 71, blood pressure 128/67, respirations 20, and oxygen saturation 97% on room air. GENERAL: Supine, in no acute distress. LUNGS: Clear to auscultation with diminished bases. No supplemental oxygen. HEENT: Sclerae anicteric. NECK: Supple. CARDIOVASCULAR: Regular rate and rhythm. No murmur. ABDOMEN: Bowel sounds positive. Soft, obese. No obvious distention. EXTREMITIES: No pitting edema. No clubbing, cyanosis, or signs of DVT. NEUROLOGIC: GCS 13, eye 3, verbal 4, motor 6. LABORATORY DATA: WBCs 10, hemoglobin 14.5, hematocrit 42.8, and platelets 238. Sodium 142, potassium 3.8, chloride 107, CO2 of 23, BUN 13, creatinine 0.69, estimated GFR greater than 60, glucose 110, calcium 9.3, phosphorus 3.1, and magnesium 2.2. TSH 5.166. IMAGING/OTHER DATA: Bilateral carotid Doppler ultrasound done on 02/02 showed no evidence of significant carotid stenosis on the right. Some evidence of carotid disease on the left without significant carotid stenosis. ASSESSMENT AND PLAN: 1. Altered mental status from baseline, with failure to thrive/decreased oral intake, underlying dementia. The patient is currently calm, but per Caden, Physician Computer Operations Specialist with Psychiatry, the patient is not stable from a psychiatric standpoint as she is often yelling and very confused and better disposition for her than senior care facility might be inpatient psychiatric care. Appreciate recommendations and Case Management order reflected this change. 2. Positive for recent urinary tract infection. Urinalysis in the ER was negative. Urinalysis was negative and culture and sensitivity will not be sent. 3. Controlled hypertension. Blood pressure 120/67, monitor. Continue home medications. 4. Hypothyroidism. TSH 5.166. Levothyroxine was increased from 50 to 75 mcg daily. 5. Hyperlipidemia. Pravastatin to be replaced by Pharmacy. 6. Gastroesophageal reflux disease/prophylaxis. Continue Pepcid. 7. Obesity with BMI of 36.09. Dietary restrictions. 8. Possible end of life (natural progression). Resuscitation status has been changed from full code to DNR as per Williams, the patient's son on 02/03/2020. Inpatient, billing code [id number], time spent 35 minutes. Dictated by Anurag Rivera, RESERVOIR ENGINEERING MANAGER MD CLARI MessinaP/MODL /[id number]
[2020-02-05] VITALS (8 sets, daily range): BP systolic 119–144; BP diastolic 54–80
[2020-02-05] MEDS: LORAZEPAM INJ 2 MG/ML VIAL IV PRN (02:29)
--- NOTE | 2020-02-05 05:19 | NUR ---
PT AGITATED DURING THE NIGHT AND GIVEN ATIVAN IV ,PT RESTING ,CALL LIGHT WITH IN REACH ,CONTINUE TO MONITOR
[2020-02-05] MEDS ORDERED: ZYPREXA5 MG PO (05:41)
[2020-02-05] MEDS ORDERED: SYNTHROID75 MCG PO (05:41)
[2020-02-05] MEDS ORDERED: LEVOTHYROXINE75 MCG PO (05:43)
[2020-02-05 06:15] LABS: BASOPHILS % 0.3 % (0.0-1.0); EOSINOPHILS # (AUTO) 0.1 (0.0-0.4); EOSINOPHILS % 1.4 % (0.0-6.0); HEMATOCRIT 42.1 % (34.2-44.1); HEMOGLOBIN 14.1 g/dL (12.0-16.0); LYMPHOCYTES # (AUTO) 1.8 (1.0-3.2); LYMPHOCYTES % 24.3 % (18.0-39.1); MEAN CORPUSCULAR HEMOGLOBIN 29.9 pg (28-32); MEAN CORPUSCULAR HGB CONC 33.5 g/dL (31-35); MEAN CORPUSCULAR VOLUME 89.4 fL (81-99); MONOCYTES # (AUTO) 0.5 (0.2-0.8); MONOCYTES % 7.4 % (4.4-11.3); NEUTROPHILS # (AUTO) 4.8 (2.1-6.9); NEUTROPHILS % 66.3 % (38.7-80.0); PLATELET COUNT 196 x10e3/uL (140-360); RED BLOOD COUNT 4.71 x10e6/uL (3.6-5.1); RED CELL DISTRIBUTION WIDTH 13.1 % (11.7-14.4)
[2020-02-05] MEDS: LEVOTHYROXINE SODIUM 75 MCG TAB PO SCH (06:27)
--- NOTE | 2020-02-05 06:40 | NUR ---
RECEIVED BEDSIDE SHIFT REPORT FROM OFF GOING NURSE. PATIENT IS RESTING IN BED, NO ACUTE DISTRESS NOTED AT THIS TIME. CALL LIGHT WITHIN REACH. BED IN THE LOWEST POSITION. BED ALARM ON.
[2020-02-05 06:50] LABS: ANION GAP 12.4 mmol/L (8-16); BLOOD UREA NITROGEN 14 mg/dL (7-26); BUN/CREATININE RATIO 22 (6-25); CARBON DIOXIDE 27 mmol/L (22-29); CHLORIDE 107 mmol/L (98-107); CREATININE, SERUM 0.64 mg/dL (0.57-1.11); EST GLOMERULAR FILTRATION RATE > 60 ML/MIN (60-); GLUCOSE 105 mg/dL (74-118); POTASSIUM 3.4 mmol/L (3.5-5.1); SODIUM 143 mmol/L (136-145)
--- NOTE | 2020-02-05 07:20 | NUR ---
BEDSIDE REPORT GIVEN TO THE ONCOMING NURSE
--- NOTE | 2020-02-05 08:25 | NUR ---
R1 LOC DETERMINATION: [facility] case account ending in 1511 has been reviewed and completed by PAS Physicians. Service Line: Level of Care (LOC) / Admission Status Review Initial patient type was submitted as: IO - Initial Observation PAS Recommendation: OU
[2020-02-05] MEDS: FUROSEMIDE 20 MG TAB PO SCH (08:41)
[2020-02-05] MEDS: FAMOTIDINE 20 MG TAB PO SCH ×2 (08:41→17:21)
[2020-02-05] MEDS: PRAVASTATIN 20 MG TAB PO SCH (08:41)
[2020-02-05] MEDS: METOPROLOL TARTRATE 25 MG TAB PO SCH ×2 (08:41→17:22)
--- NOTE | 2020-02-05 10:44 | Progress Note ---
DATE: 02/05/2020 Psychiatric Progress Note SUBJECTIVE: The patient evaluated, events noted. The patient is in the room. She is sleeping but easily arousable on modified bedside. The patient is oriented to self and able to identifying the son. She is calm. She received p.r.n. Ativan last night around 3:00 a.m. She has been getting p.r.n. medication for the last 4 days. She denies any depression. She falls back to sleep. As per the son, patient has been doing well. She is back to baseline. Intermittently confused, especially at night. I had a long discussion with the son who admits that the patient does have memory issues and possible intellectual disability problem as well, but has never been diagnosed. I recommended the family can now followup with neuropsychologist as an outpatient and also we can adjust the medication for possible dementia sundowning and agitation at nighttime. Plan; agree with the current plan. Discussed with the case management as well. ASSESSMENT: 1. Unspecified psychosis. 2. Unspecified dementia with behavior disturbance. PLAN: 1. Add Zyprexa 2.5 mg p.o. at bedtime. 2. Continue with Zyprexa 2.5 mg p.o. q.6h. as needed. 3. Continue with Haldol p.r.n. IM. 4. Change Ativan to p.r.n. IM from IV. 5. Discussed with case management. 6. Monitor for agitation. Dictated by Susan Lares PA-C MD KURT DayV/YURY /[id number]
--- NOTE | 2020-02-05 10:58 | NUR ---
CONTACTED FACILITY, STILL PENDING AUTH
[2020-02-05] MEDS: LORAZEPAM INJ 2 MG/ML VIAL IM PRN ×2 (12:50→22:30)
--- NOTE | 2020-02-05 16:14 | NUR ---
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
--- NOTE | 2020-02-05 16:20 | NUR ---
SIGNED CHOICE FILED IN CHART AND FAXED TO FACILITY
--- NOTE | 2020-02-05 19:11 | NUR ---
Bedside shift report given to oncoming nurse. Patient is resting in bed. No acute distress noted at this time. Son at bedside. Call light within reach. Bed in the lowest position. Bed alarm on.
[2020-02-05] MEDS: OXYBUTYNIN CHLORIDE XL 5 MG TAB PO SCH (20:10)
[2020-02-05] MEDS ORDERED: OLANZAPINE 5 MG TAB PO SCH (21:00)
[2020-02-06 01:08] VITALS: BP 126/66
[2020-02-06] MEDS: LEVOTHYROXINE SODIUM 75 MCG TAB PO SCH (05:43)
[2020-02-06 06:15] VITALS: BP 133/70
[2020-02-06 08:21] VITALS: BP 110/61
[2020-02-06 08:22] VITALS: BP 110/61
[2020-02-06] MEDS: FUROSEMIDE 20 MG TAB PO SCH (09:03)
[2020-02-06] MEDS: FAMOTIDINE 20 MG TAB PO SCH (09:03)
[2020-02-06] MEDS: METOPROLOL TARTRATE 25 MG TAB PO SCH (09:04)
[2020-02-06] MEDS: PRAVASTATIN 20 MG TAB PO SCH (09:04)
[2020-02-06 12:16] VITALS: BP 125/67
--- NOTE | 2020-02-06 14:29 | NUR ---
SON IS COMPLETING PAPERWORK, WILL GET MOT WHEN HE TURNS IT IN.
--- NOTE | 2020-02-06 15:31 | Progress Note ---
DATE: 02/06/2020 Psychiatric Progress Note SUBJECTIVE: The patient evaluated and events noted. The patient is in the room. She is drowsy, but arousable. She received p.r.n. Haldol last night as well as p.r.n. Ativan at night. She is waiting for senior care facility to go to. I discussed with criminal justice social worker today and they are working at possible courtyard for her. Vital signs reviewed. Discussed with the nurse this morning as well. No side effects seen or reported. ASSESSMENT: 1. Unspecified psychosis. 2. Unspecified dementia with behavior disturbances. PLAN: 1. To increase Zyprexa to 5 mg p.o. at bedtime. 2. Continue Ativan and Haldol p.r.n. IM. 3. Continue Zyprexa p.r.n. p.o. 4. Monitor for agitation. Dictated by Susna Lares PA-C MD KURT DayV/YURY /[id number]
[2020-02-06 15:46] VITALS: BP 125/62
--- NOTE | 2020-02-06 15:57 | NUR ---
LONG TERM FACILITY DISCHARGE INFORMATION PATIENT HAS BEEN ACCEPTED TO: NAME:KAREY ADDRESS:[id number] [facility] ACCEPTING ENERGY MANAGER: RAFY WATT ACCEPTING MD:SADIA ROOM:[address] NURSE CALL REPORT TO: [phone] IMM SIGNED AND OBTAINED (if applicable): IMM THE FOLLOWING DOCUMENTS MUST ACCOMPANY PATIENT FOR TRANSFER: COPIED CHART:PACKET
--- NOTE | 2020-02-06 16:12 | NUR ---
Report given to [facility] .
--- NOTE | 2020-02-06 17:10 | NUR ---
PIV to right FA removed, catheter intact, no bleeding noted. Dressing applied.
--- NOTE | 2020-02-06 18:11 | NUR ---
Patient is transported via EMS. Respiration even and unlabored. All personal belongings are taken by her son. Addendum: 02/06/20 at 1813 by Rafaela Hernandez RN Transported to [facility]
--- NOTE | 2020-02-06 19:02 | Discharge Summary ---
ADMISSION DIAGNOSES: Altered mental status from baseline with failure to thrive, likely due to dementia, urinary tract infection present on admission, hypertension, hypothyroidism, hyperlipidemia, gastroesophageal reflux disease, hypokalemia, and obesity with a BMI of 36. DISCHARGE DIAGNOSES: Altered mental status from baseline with failure to thrive, likely due to dementia, urinary tract infection present on admission, hypertension, hypothyroidism, hyperlipidemia, gastroesophageal reflux disease, hypokalemia, obesity with a BMI of 36, rule out coronavirus, rule out hepatic encephalopathy, rule out cerebrovascular accident, rule out urinary tract infection, and psychosis. HISTORY: Hypothyroidism, hypertension, hyperlipidemia, GERD, dementia, and osteoporosis. SURGICAL HISTORY: Hysterectomy and bladder suspension. FAMILY HISTORY: Noncontributory. SOCIAL HISTORY: The patient currently lives at home with family. She denies use of tobacco, alcohol, and illicit drugs. HOSPITAL COURSE: A 79-year-old female sent to the ER due to decompensation over the past 2 weeks. The patient's daughter states that she is eating less. She is more lethargic and unable to sit up on her own. She was recently treated for UTI outpatient. UA in the ER was negative. On admission, CT of the abdomen was negative. CT of the brain showed no acute abnormality. MRI of the brain was also negative. Bilateral carotid Doppler showed no significant stenosis. UA was negative. Coronavirus negative. Ammonia level was within normal limits. As there is no source of ischemic hemorrhagic or infectious disease process, the patient was attempted to discharge to a SNF due to ambulatory dysfunction, but was denied by insurance. Discharge home with family was discussed, but they said they can no longer takes care of her, so they requested that she discharge to a retirement instead. The patient will discharge to [facility] for long-term placement. She will follow up with primary care at the facility. The patient's family understands discharge instructions and agrees to plan. Vital signs are stable. The patient is afebrile. Dictated by Kay Moralez NP Rg Wheeler MD OPAL/MODL /[id number]
[2020-02-06] MEDS ORDERED: OLANZAPINE 5 MG TAB PO SCH (21:00)
--- OUTSIDE RECORDS SUMMARY | 2020-02-12 16:46 | XMS REPORT | Continuity of Care Document ---
Author Author [facility] t Organization [facility] Address [address] [place] [address] Phone Unavailable Care Team Providers Care Police Detention Attendant Name Role Phone JAMIE STEPHEN MD PCP ROSSANA MCCULLOUGH Attphys Unavailable NAZIA HARRY Attphys Unavailable GENAROSowmya MALIN Attphys Unavailable Alhaji RICO Attphys Unavailable ROSSANA MCCULLOUGH Admphys Unavailable JAMIE STEPHEN Admphys Unavailable Payers Payer Name Policy Type Policy Number Effective Date Expiration Date S yann [employer] [id number] 2017 00:00:00 [facility] [employer] [id number] 2015 00:00:00 [facility] Problems Condition Name Condition Details Condition Category Status Onset Date Resolution Date Last Treatment Date Treating Clinician Comments Source Cellulitis of right groin Cellulitis of groin, right Problem Active [facility] Allergies, Adverse Reactions, Alerts Allergy Name Allergy Type Status Severity Reaction(s) Onset Date Inacti ve Date Treating Clinician Comments Source No Known Allergies DA Active U 2018-11-04 00:00:00 [facility] lactase DA Active [place] 2014-06-15 00:00:00 [facility] Medications Ordered Medication Name Filled Medication Name Start Date Stop Da te Current Medication? Ordering Clinician Indication Dosage Frequency Signature (SIG) Comments Components Source Alendronate Sodium 70 Mg Tablet Alendronate Sodium 70 Mg Tablet Yes 70 Weekly [facility] Furosemide (Lasix) 20 Mg Tablet Furosemide (Lasix) 20 Mg Tablet Yes 20 Daily [facility] Levothyroxine Sodium 50 Mcg Tablet Levothyroxine Sodium 50 Mcg Tablet Yes 50 Daily [facility] Metoprolol Tartrate 25 Mg Tablet Metoprolol Tartrate 25 Mg Tablet Yes 25 Twice A Day [facility] Oxybutynin Chloride (Oxybutynin Chloride Er) 5 Mg Tab. er.24 Oxybutynin Chloride (Oxybutynin Chloride Er) 5 Mg Tab.er.24 Yes 5 Bedtime [facility] Pravastatin Sodium 10 Mg Tablet Pravastatin Sodium 10 Mg Tablet Yes 10 Daily [facility] Clotrimazole/Betamethasone Dip (Lotrison e Cream) 15 Gm Cream..g., 45 Gm Topically Clotrimazole/Betamethasone Dip (Lotrison e Cream) 15 Gm Cream..g., 45 Gm Topically 2019-02-20 00:00:00 No 45 Twice A Day [facility] Fluconazole (Diflucan) 100 Mg Tablet, 100 Mg Oral Fluc onazole (Diflucan) 100 Mg Tablet, 100 Mg Oral 2019-02-20 00:00:00 No 100 Viet y [facility] Mirabegron (Myrbetriq) 50 Mg Tab.er.24h, 50 Mg Oral Mi rabegron (Myrbetriq) 50 Mg Tab.er.24h, 50 Mg Oral 2019-02-20 00:00:00 No 50 D aily [facility] Ramipril 5 Mg Capsule, 10 Mg Oral Ramipril 5 Mg Capsule, 10 Mg O ral 2019-02-20 00:00:00 No 10 Daily [facility] Diltiazem Hcl (Diltiazem Er) 90 Mg Cap.sr.12h, 90 Mg O ral Diltiazem Hcl (Diltiazem Er) 90 Mg Cap.sr.12h, 90 Mg Oral 2017-12-05 00:00:00 No 90 Twice A Day [facility] Esomeprazole Mag Trihydrate (Nexium) 40 Mg Capsule.dr, 40 Mg Oral Esomeprazole Mag Trihydrate (Nexium) 40 Mg Capsule.dr, 40 Mg Oral 2017-12-05 00: 00:00 No 40 [facility] Levothyroxine Sodium (Tirosint) 50 Mcg Capsule, 50 Mcg Oral Levothyroxine Sodium (Tirosint) 50 Mcg Capsule, 50 Mcg Oral 2017-12-05 00:00:00 No 50 [facility] Metoprolol Succinate 25 Mg Tab.sr.24h, 25 Mg Oral Meto prolol Succinate 25 Mg Tab.sr.24h, 25 Mg Oral 2017-12-05 00:00:00 No 25 T wice A Day [facility] Oxybutynin Chloride (Oxybutynin Chloride Er) 5 Mg Tab. er.24, 5 Mg Oral Oxybutynin Chloride (Oxybutynin Chloride Er) 5 Mg Tab.er.24, 5 Mg Oral 2017-12-05 00:00:00 No 5 Daily [facility] Simvastatin 40 Mg Tablet, 40 Mg Oral Simvastatin 40 Mg Tablet, 4 0 Mg Oral 2017-12-05 00:00:00 No 40 [facility] Procedures Procedure Date / Time Performed Performing Clinician [facility] e Computed tomography of brain without radiopaque contrast 201 12-18-13 00:00:00 SILVIO WATKINS [facility] Encounters Start Date/Time End Date/Time En[facility] ID Source 2019-02-20 14:06:00 2019-02-20 17:41:00 Departed Emergency Room 1 NAZIA HARRY [facility] [id number] [facility] 2018-01-14 13:13:00 2018-01-14 15:24:00 Departed Emergency Room 1 JESSICA LAM [facility] [id number] [facility] 2017-12-05 21:37:00 2017-12-12 15:27:00 Discharged Inpatient 1 ASHLEY RICO [facility] [id number] [facility] Results Test Description Test Time Test Comments Results Result Comments Source MRI BRAIN WO 2020-02-02 22:13:00 [facility] : 1940 Sex: F [facility] [address] [address] Patient Name: TAMIKA KELLY MR #: [id number] : 1940 Age/Sex: 79/F Req #: [id number] Adm Physician: ROSSANA MCCULLOUGH MD Ordered by: Rosa Mcwilliams [employer] WORK[employer] Report #: [id number] [facility] Room/Bed: [facility] Procedure: [id number] MRI/MRI BRAIN WO Exam Date: Exam Time: REPORT STATUS: Signed History: Altered mental status. Comparison studies: Head CTs on 02/20/2019 and 02/02/2020 Technique: Sagittal T2; axial DWI, FLAIR, MPGR, T1, Coronal FLAIR. Intravenous contrast: None Findings: Scalp: Normal in signal . No masses . Bone marrow: Normal in signal intensity. Extra-axial: No masses or fluid collections. Brain sulci: Mildly prominent. Ventricles: Moderately prominent there is disproportionate dilatation of the left temporal horn is probably due to volume loss in the left temporal pole perhaps due to previous trauma. No acute hydrocephalus. Parenchyma: Multiple T2 FLAIR hyperintense foci in the periventricular, supratentorial white matter and the bones are nonspecific microvascular ischemic changes. No masses, hemorrhage, acute or chronic cortical ischemic insults. Suprasellar region: No abnormalities. Craniocervical junction: No abnormalities. Patent foramen magnum. No Chiari one malformation. Vessels: Normal flow-voids in the arteries and sinuses. IMPRESSION: 1. No acute abnormalities in spite of motion artifacts. 2. No changes when compared to the most recent head CT on 02/02/2020 Chronic findings: Mild generalized volume loss. Moderately dilated ventricles but no acute hydrocephalus. Moderate microvascular ischemic changes in the supratentorial white matter and in the rocky Signed by: Dr. Cindy Frausto M.D. on 02/02/2020 10:19 PM Dictated By: CINDY STOVALL MD, MD 18 Transcribed By: MARY on 02/02/202218 COPY TO: ROSA MCWILLIAMS NP CT ABDOMEN/PELVIS W 2020-02-02 12:14:00 [facility] 1940 Sex: [place] [address] Patient Name: TAMIKA KELLY MR #: [id number] : 1940 Age/Sex: 79/F Req #: [id number] Adm Physician: Ordered by: NAZIA HARRY DO Report #: [id number] Location: ER Room/Bed: Procedure: [id number] CT/CT ABDOMEN/PELVIS W Exam Date: 02/02/20 Exam Time: 1150 REPORT STATUS: Signed CT of the abdomen and pelvis with contrast TECHNIQUE: CT of the abdomen and pelvis WITH intravenous contrast and WITHOUT oral contrast. Dose modulation, iterative reconstruction, and/or weight-based adjustment of the mA/kV was utilized to reduce the radiation dose to as low as reasonably achievable. IV CONTRAST: 100 mL of Isovue-370 ORAL CONTRAST: None RADIATION DOSE: Total DLP: 674 mGy*cm COMPLICATIONS: None INDICATION: Y [facility] [id number] 1150. COMPARISON: None. FINDINGS: LOWER THORAX: Calcified granuloma is noted at the left lung base. Moderate hiatal hernia is noted. A 5 mm right middle lobe nodule is noted on image #3. HEPATOBILIARY: No focal hepatic lesions. Gallbladder is surgically absent. Focal fatty infiltration along the falciform ligament is noted. No biliary ductal dilatation. SPLEEN: No splenomegaly. PANCREAS: No focal masses or ductal dilatation. ADRENALS: No adrenal nodules. KIDNEYS/URETERS: Symmetric cortical enhancement without hydronephrosis. Ureters are not dilated. Negative for surrounding inflammatory changes. PELVIC ORGANS/BLADDER: Urinary bladder is unremarkable. Uterus is surgically absent. PERITONEUM/RETROPERITONEUM: No free air or fluid. [place] anterior abdominal hernia is noted with diastases of the abdominal wall/or with superimposed umbilical hernia which contains nondilated loops of small bowel. LYMPH NODES: No lymphadenopathy. VESSELS: Unremarkable. GI TRACT: Negative for bowel obstruction. Stomach is decompressed. Moderate colonic stool retention is noted. Numerous diverticula are identified of the sigmoid colon without surrounding inflammatory changes. Normal appendix is noted. BONES AND SOFT TISSUES: No acute osseous abnormality. Moderate to severe multilevel degenerative changes of the spine are noted. Negative for suspicious lytic or blastic lesion. Soft tissues are unremarkable. IMPRESSION: 1. Negative for acute abdominopelvic pro cess. 2. Diastases of the anterior abdominal wall musculature with superimposed umbilical hernia containing nondilated loops of small bowel and colon. Negative for bowel obstruction or evidence of incarceration. 3. Uncomplicated diffuse sigmoid diverticulosis. 4. Moderate hiatal hernia. 5. Postsurgical change of cholecystectomy. 6. Solitary 5 mm right middle lobe nodule. If patient is at high risk for lung cancer consider optional CT chest follow-up at 12 months. If patient is low risk for lung cancer no follow-up is required. Signed by: Lyle Stephen MD on 02/02/2020 12:21 PM Dictated By: LYLE STEPHEN MD 20 Transcribed By: MARY on 02/02/201220 COPY TO: NAZIA HARRY DO CT BRAIN WO 2020-02-02 10:36:00 [facility] : 1940 Sex: F [place] [address] Patient Name: TAMIKA KELLY MR #: [id number] : 1940 Age/Sex: 79/F Req #: [id number] [facility] Physician: Ordered by: NAZIA HARRY DO Report #: [id number] Location: Room/Bed: Procedure: [id number] CT/CT BRAIN WO Exam Date: 02/02/20 Exam Time: 1010 REPORT STATUS: Signed EXAMINATION: Head CT HISTORY: 79-year-old female with alteration of consciousness, weakness COMPARISON: Head CT 02/20/2019 TECHNIQUE: Helical axial images of the head were obtained. Dose modulation, iterative reconstruction, and/or weight based adjustment of the mA/kV was utilized to reduce the radiation dose to as low as reasonably achievable. FINDINGS: Parenchyma: 1. Persistent moderate chronic microvascular ischemic changes. 2. No mass or hemorrhage. No CT evidence of acute territorial vascular insult. Extra-axial spaces:Unchanged superior cerebellar benign arachnoid cyst . Brain volume: Disproportionate volume loss along the left greater than right anteromedial temporal lobes and hippocampi, which can be seen in patient's with Alzheimer's disease in the correct clinical setting. Ventricles: No hydrocephalus or displacement. Arteries: No density suggestive of thrombus. Dural sinuses: No abnormal density. Foramen magnum: No mass, Chiari malformation, or basilar invagination. Sella: No obvious mass. Paranasal/mastoid sinuses: Imaged portions unremarkable. Skull/Scalp: No lytic or blastic lesions. No fractures. IMPRESSION: 1. No acute intracranial hemorrhage or cortical infarcts. 2. Stable moderate chronic microvascular ischemic changes compared to CT of 02/20/2019. 3. Persistent disproportionate medial temporal/hippocampal volume loss as above. Signed by: Dr. Whitney Bell M.D. on 02/02/2020 10:42 AM Dictated By: WHITNEY BELL MD 41 Transcribed By: MARY on 02/02/201041 COPY TO: NAZIA HARRY, CHEST SINGLE (PORTABLE) 2020-02-02 10:16:00 [facility] 1940 Sex: [place] [address] Patient Name: TAMIKA KELLY MR #: [id number] : 1940 Age/Sex: 79/F Req #: [id number] Adm Physician: Ordered by: NAZIA HARRY DO Report #: [id number] Location: ER Room/Bed: Procedure: [id number] DX/CHEST SINGLE (PORTABLE) Exam Date: 02/02/20 Exam Time: 949 REPORT STATUS: Signed TECHNIQUE: Frontal view of the chest. INDICATION: Y AMS [id number] 0950 COMPARISON: 02/20/2019 DISCUSSION: Limited evaluation due to portable technique. Lines and hardware: Overlying EKG leads are noted. Heart and mediastinum: Mild cardiomegaly and tortuous thoracic aorta are stable. Lungs and pleura: No definite new focal consolidation. Central vascular congestion and prominent interstitial markings are noted. Negative for large effusion or pneumothorax. Soft tissues and bones: No acute abnormality. Stable severe degenerative changes of the shoulder joints with full-thickness rotator cuff tears. IMPRESSION: Stable cardiomegaly and central vascular congestion. No definite new focal infiltrate. Signed by: Lyle Stephen MD on 02/02/2020 10:17 AM Dictated By: LYLE STEPHEN MD 1017 Transcribed By: MARY on 02/02/20 1017 COPY TO: NAZIA HARRY DO CT BRAIN WO 2019-02-20 17:05:00 [address] [place] [address] Patient Name: TAMIKA KELLY MR #: [id number] : 1940 Age/Sex: 78/F Req #: [id number] Adm Physician: Ordered by: SILVIO WATKINS [employer] Report #: [id number] Location: ER Room/Bed: Procedure: [id number] CT/CT BRAIN WO Exam Date: 02/20/19 Exam Time: 1540 REPORT STATUS: Signed Examination: CT head without contrast Clinical Indication: Confusion Technique: Transaxial noncontrast images from the skull base through the vertex were obtained. Sagittal and coronal reformatted images were done. Dose modulation, iterative reconstruction, and/or weight based adjustment of the mA/kV was utilized to reduce the radiation dose to as low as reasonably achievable. Comparison: Head CT performed January 14, 2018. Findings: Scalp: No abnormalities. Bones: Intact. No fractures. No blastic or lytic lesions. Brain sulci: Moderate volume loss for patient's age with predominant involvement of the bilateral hippocampi. Ventricles: No hydrocephalus. Extra-axial space: No acute abnormalities. Superior cerebellar convexity arachnoid cyst, unchanged. Parenchyma: There are mild confluent areas of low-attenuation within subcortical and periventricular white matter, nonspecific, but could represent microvascular ischemic disease. No masses, hemorrhage, or acute or chronic cortical based vascular insults. Suprasellar region: No abnormalities. Craniocervical junction: The foramen magnum is patent. No Chiari one malformation. Incidental findings: Atherosclerotic calcification of the cavernous and supraclinoid internal carotid arteries. Impression: 1. No new acute intracranial abnormality. 2. Resolution of previously seen large left frontal scalp hematoma when compared to prior head CT performed January 14, 2018 3. Unchanged chronic microvascular ischemic change and volume loss with predominance at the bilateral hippocampi which can be seen in Alzheimer's. Signed by: Dr. Mariella Dubose M.D. on 02/20/2019 5:08 PM Dictated By: MARIELLA LOPEZ MD 07 Transcribed By: MARY on 02/20/191707 COPY TO: SILVIO WATKINS NP Lactic Acid Level 2019-02-20 16:12:00 Test Item Lactic Acid Level (test code = Lactic Acid Level) 1.5 0.5- 2.0 [facility] CenterProth[facility]bin Vdua8220-06-88 16:08:00* Test Item Value Reference Range Interpretation Comments Prothrombin Time (test code = 5902-2) 13.0 11.9-14.5 [facility] CenterProthromb Time International Ratio 2019-02-20 16:08:00* Test Item Value Reference Range Interpretation Comments Prothromb Time International Ratio (test code = 6301-6) 0.93 Oral Anticoagulant Therapy INR Values:1. Low Intensity Therapy 1.5 - 2.02 . Moderate Intensity Therapy 2.0 - 3.03. High Intensity Therapy(1) 2.5 - 3. 54. High Intensity Therapy(2) 3.0 - 4.05. Panic Value INR > 5.0 [facility] CenterActivated Partial Thromboplast Time 2019-02-20 16:08:00* Test Item Value Reference Range Interpretation Comments Activated Partial Thromboplast Time (test code = 77174-1) 30.7 23.8-35.5 [facility] CenterB-Type Natriuretic Fjdwypq9409-96-13 15:58:00* Test Item Value Reference Range Interpretation Comments B-Type Natriuretic Peptide (test code = 77177-3) 32.9 0-100 [facility] CenterCreatine Kinase [id number] 15:58:00* Test Item Value Reference Range Interpretation Comments Creatine Kinase MB (test code = 21437-4) 1.00 0-5.0 [facility] CenterTroponin [id number] 15:58:00* Test Item Value Reference Range Interpretation Comments Troponin I (test code = ZLJ9661) < 0.001 0-0.300 [facility] CenterInfluenza Virus Types A,B Antigen 2019-02-20 15:54:00* Test Item Value Reference Range Interpretation Comments Influenza Virus Types A,B Antigen (test code = 16774-6) NEGATIVE NEGATIVE [facility] CenterUrine [id number] 15:50:00* Test Item Value Reference Range Interpretation Comments Urine WBC (test code = 5821-4) 0-5 0-5 [facility] CenterUrine [id number] 15:50:00* Test Item Value Reference Range Interpretation Comments Urine RBC (test code = 50412-8) NONE 0-5 [facility] CenterUrine Dvndlfek0478-47-63 15:50:00* Test Item Value Reference Range Interpretation Comments Urine Bacteria (test code = 42591-2) MANY NONE H [facility] CenterUrine Epithelial Wlmrk0984-59-20 15:50:00 * Test Item Value Reference Range Interpretation Comments Urine Epithelial Cells (test code = 59001-0) RARE NONE [facility] Rvarp6849-99-06 15:47:00* Test Item Value Reference Range Interpretation Comments Sodium Level (test code = 2951-2) 143 136-145 [facility] CenterPotassium Rsipr6184-07-16 15:47:00* Test Item Value Reference Range Interpretation Comments Potassium Level (test code = 2823-3) 3.2 3.5-5.1 L [facility] CenterChloride Vyqwc3789-71-50 15:47:00* Test Item Value Reference Range Interpretation Comments Chloride Level (test code = 2075-0) 101 98-107 [facility] CenterCarbon Dioxide Sdhdj6001-32-37 15:47:00* Test Item Value Reference Range Interpretation Comments Carbon Dioxide Level (test code = 2028-9) 31 22-29 H [facility] CenterAnion Ign6839-10-63 15:47:00* Test Item Value Reference Range Interpretation Comments Anion Gap (test code = 69217-6) 14.2 8-16 [facility] CenterBlood Urea Naecdltw0992-43-62 15:47:00* Test Item Value Reference Range Interpretation Comments Blood Urea Nitrogen (test code = 3094-0) 14 7-26 [facility] CenterCreatinine2019-11-14 15:47:00* Test Item Value Reference Range Interpretation Comments Creatinine (test code = 2160-0) 0.76 0.57-1.11 [facility] CenterBUN/Creatinine Cteoy6612-57-92 15:47:00* Test Item Value Reference Range Interpretation Comments BUN/Creatinine Ratio (test code = 3097-3) 18 6-25 [facility] CenterEstimat Glomerular Filtration Rate 2019-02-20 15:47:00* Test Item Value Reference Range Interpretation Comments Estimat Glomerular Filtration Rate (test code = 203776519) > 60 >60 Ranges were taken from the National Kidney Disease Education Program and the [facility] Kidney Foundation literature.Reference ranges:60 or greater: Xcxdtp71-32 ( for 3 consecutive months): Chronic kidney disease 15 or less: Kidney failureValley Regional Medical CenterGlucose Rsxha6642-50-28 15:47:00* Test Item Value Reference Range Interpretation Comments Glucose Level (test code = MDT9237) 136 74-118 H [facility] CenterCalcium Kzjfk9891-31-38 15:47:00* Test Item Value Reference Range Interpretation Comments Calcium Level (test code = 56742-5) 9.4 8.4-10.2 [facility] CenterTotal Xdjkwgzwj9799-80-68 15:47:00* Test Item Value Reference Range Interpretation Comments Total Bilirubin (test code = 1975-2) 0.5 0.2-1.2 [facility] CenterAspartate Amino Transf (AST/SGOT) 2019-02-20 15:47:00* Test Item Value Reference Range Interpretation Comments Aspartate Amino Transf (AST/SGOT) (test code = Aspartate Amino Transf (AST/SGOT)) 21 5-34 [facility] CenterAlanine Aminotransferase (ALT/SGPT) 2019-02-20 15:47:00* Test Item Value Reference Range Interpretation Comments Alanine Aminotransferase (ALT/SGPT) (test code = 1742-6) 17 0-55 [facility] CenterTotal Lztiqbh4108-68-26 15:47:00* Test Item Value Reference Range Interpretation Comments Total Protein (test code = 2885-2) 7.4 6.5-8.1 [facility] CenterAlbumin2019-11-14 15:47:00* Test Item Value Reference Range Interpretation Comments Albumin (test code = 1751-7) 3.1 3.5-5.0 L [facility] CenterGlobulin2019-11-14 15:47:00* Test Item Value Reference Range Interpretation Comments Globulin (test code = 48436-7) 4.3 2.3-3.5 H [facility] CenterAlbumin/Globulin Qocav2425-09-38 15:47:00 * Test Item Value Reference Range Interpretation Comments Albumin/Globulin Ratio (test code = 1759-0) 0.7 0.8-2.0 L [facility] CenterAlkaline Rwbkiwzjtid5874-06-19 15:47:00* Test Item Value Reference Range Interpretation Comments Alkaline Phosphatase (test code = 6768-6) 84 40-150 [facility] CenterCreatine Jfcpyu3513-34-07 15:47:00* Test Item Value Reference Range Interpretation Comments Creatine Kinase (test code = 2157-6) 20 29-168 L [facility] CenterUrine Ojlvg2215-65-50 15:45:00* Test Item Value Reference Range Interpretation Comments Urine Color (test code = 5778-6) YELLOW YELLOW [facility] CenterUrine Jtpxghs1102-38-03 15:45:00* Test Item Value Reference Range Interpretation Comments Urine Clarity (test code = 54606-0) CLOUDY CLEAR H [facility] CenterUrine Specific Jgrbqdf9889-61-02 15:45:00 * Test Item Value Reference Range Interpretation Comments Urine Specific [place] (test code = 5811-5) 1.020 1.010-1.02 5 [facility] CenterUrine bR4810-31-62 15:45:00* Test Item Value Reference Range Interpretation Comments Urine pH (test code = 73539-2) 6 5-7 [facility] CenterUrine Leukocyte Kvatjazq4568-81-52 15:45:00* Test Item Value Reference Range Interpretation Comments Urine Leukocyte Esterase (test code = 03571-5) SMALL NEGATIV E [facility] CenterUrine Xdwnbfd6101-21-38 15:45:00* Test Item Value Reference Range Interpretation Comments Urine Nitrite (test code = 60143-6) NEGATIVE NEGATIVE [facility] CenterUrine Nlschnt7568-66-28 15:45:00* Test Item Value Reference Range Interpretation Comments Urine Protein (test code = 02784-9) NEGATIVE NEGATIVE [facility] Glucose (UA)2019-02-20 15:45:00* Test Item Value Reference Range Interpretation Comments Urine Glucose (UA) (test code = 57164-4) NEGATIVE NEGATIVE [facility] CenterUrine Pdqdoxj5955-87-27 15:45:00* Test Item Value Reference Range Interpretation Comments Urine Ketones (test code = 46204-5) NEGATIVE NEGATIVE [facility] CenterUrine Usrsmzhgbnea8942-11-94 15:45:00* Test Item Value Reference Range Interpretation Comments Urine Urobilinogen (test code = 03125-3) 0.2 0.2-1 [facility] CenterUrine Vosinqmgx1862-98-94 15:45:00* Test Item Value Reference Range Interpretation Comments Urine Bilirubin (test code = 1977-8) NEGATIVE NEGATIVE [facility] CenterUrine Pduxz8009-99-76 15:45:00* Test Item Value Reference Range Interpretation Comments Urine Blood (test code = 52083-1) NEGATIVE NEGATIVE [facility] CenterWhite Blood Nazqk6397-38-44 15:44:00* Test Item Value Reference Range Interpretation Comments White Blood Count (test code = 6690-2) 7.47 4.8-10.8 [facility] CenterRed Blood Keayh1786-16-69 15:44:00* Test Item Value Reference Range Interpretation Comments Red Blood Count (test code = 789-8) 4.86 3.6-5.1 [facility] CenterHemoglobin2019-11-14 15:44:00* Test Item Value Reference Range Interpretation Comments Hemoglobin (test code = 48814-5) 14.5 12.0-16.0 [facility] [facility] 15:44[facility]00* Test Item Value Reference Range Interpretation Comments Hematocrit (test code = 4544-3) 42.9 34.2-44.1 [facility]Mean Corpuscular [id number] 15:44:00* Test Item Value Reference Range Interpretation Comments Mean Corpuscular Volume (test code = 787-2) 88.3 81-99 [facility] Corpuscular [id number] 15:44:00* Test Item Value Reference Range Interpretation Comments Mean Corpuscular Hemoglobin (test code = 785-6) 29.8 28-32 [facility]Mean Corpuscular Hemoglobin Concent 2019-02-20 15:44:00* Test Item Value Reference Range Interpretation Comments Mean Corpuscular Hemoglobin Concent (test code = 786-4) 33.8 31-35 [facility] CenterRed Cell Distribution [id number] 15:44:00* Test Item Value Reference Range Interpretation Comments Red Cell Distribution Width (test code = 26180-0) 13.2 11.7 -14.4 [facility] CenterPlatelet [id number] 15:44:00* Test Item Value Reference Range Interpretation Comments Platelet Count (test code = 777-3) 237 140-360 [facility] CenterNeutrophils (%) (Auto)2019-02-20 15:44:00 * Test Item Value Reference Range Interpretation Comments Neutrophils (%) (Auto) (test code = 97250-7) 67.5 38.7-80.0 [facility] CenterLymphocytes (%) (Auto)2019-02-20 15:44:00 * Test Item Value Reference Range Interpretation Comments Lymphocytes (%) (Auto) (test code = 736-9) 22.6 18.0-39.1 [facility] CenterMonocytes (%) (Auto)2019-02-20 15:44:00* Test Item Value Reference Range Interpretation Comments Monocytes (%) (Auto) (test code = 5905-5) 7.6 4.4-11.3 [facility] CenterEosinophils (%) (Auto)2019-02-20 15:44:00 * Test Item Value Reference Range Interpretation Comments Eosinophils (%) (Auto) (test code = 713-8) 1.9 0.0-6.0 [facility] CenterBasophils (%) (Auto)2019-02-20 15:44:00* Test Item Value Reference Range Interpretation Comments Basophils (%) (Auto) (test code = 706-2) 0.1 0.0-1.0 [facility] CenterIM GRANULOCYTES %2019-02-20 15:44:00* Test Item Value Reference Range Interpretation Comments IM GRANULOCYTES % (test code = IM GRANULOCYTES %) 0.3 0.0- 1.0 [facility] CenterNeutrophils # (Auto)2019-02-20 15:44:00* Test Item Value Reference Range Interpretation Comments Neutrophils # (Auto) (test code = 751-8) 5.0 2.1-6.9 [facility] CenterLymphocytes # (Auto)2019-02-20 15:44:00* Test Item Value Reference Range Interpretation Comments Lymphocytes # (Auto) (test code = 56348-7) 1.7 1.0-3.2 [facility] CenterMonocytes # (Auto)2019-02-20 15:44:00* Test Item Value Reference Range Interpretation Comments Monocytes # (Auto) (test code = 742-7) 0.6 0.2-0.8 [facility] CenterEosinophils # (Auto)2019-02-20 15:44:00* Test Item Value Reference Range Interpretation Comments Eosinophils # (Auto) (test code = 711-2) 0.1 0.0-0.4 [facility] CenterBasophils # (Auto)2019-02-20 15:44:00* Test Item Value Reference Range Interpretation Comments Basophils # (Auto) (test code = 704-7) 0.0 0.0-0.1 [facility] CenterAbsolute Immature Granulocyte (auto 2019-02-20 15:44:00* Test Item Value Reference Range Interpretation Comments Absolute Immature Granulocyte (auto (lisa t code = Absolute Immature Granulocyte (auto) 0.02 0-0.1 [facility] CenterAmmonia2019-11-14 15:44:00* Test Item Value Reference Range Interpretation Comments Ammonia (test code = 40709-9) 41 31-123 [facility] CenterAmylase [id number] 15:43:00* Test Item Value Reference Range Interpretation Comments Amylase Level (test code = 1798-8) 59 25-125 [facility] CenterANKLE 3 + VIEWS [id number] 15:17:00 [place] [address] Patient Name: TAMIKA KELLY MR #: [id number] : 9[birth year] Age/Sex: 78/F Req #: [id number] Adm Physician: Ordered by: SILVIO WATKINS [employer] WORK[employer] Report #: [id number] Location: ER Room/Bed: Procedure: [id number] DX/ANKLE 3 + VIEWS RIGHT Exam Date: 02/20/19 Exam T vish: 1458 REPORT STATUS: Signed EXAMINATION: ANKLE 3 + VIEWS RIGHT INDICATION: Ankle pain COMPARI SON: None FINDINGS: No acute fracture or dislocation. Alignment i s anatomic. The ankle mortise is intact and symmetric. The soft tissues appear unremarkable. Cortical regularity at the distal fibula is likely related to o ld healed fracture. Small plantar calcaneal spur. Atherosclerotic vascular blanco cifications. IMPRESSION: No acute osseous injury. Signed by: Bette Fragoso MD on 02/20/2019 3:19 PM Dictated By: SARAVANAN FRAGOSO MD 18 Transcribed By: MARY on 02/20/191518 COPY TO: SILVIO WATKINS NP CHEST SINGLE (PORTABLE) 2019-02-20 15:15:00 [place] [address] Patient Name: TAMIKA KELLY MR #: [id number] : 1940 Age/Sex: 78/F Req #: [id number] Adm Physician: Ordered by: SILVIO WATKINS NP Report #: [id number] Location: ER Room/Bed: Procedure: [id number] DX/CHEST SINGLE (PORTABLE) Exam Date: 02/20/19 Exam Time: 1458 REPORT STATUS: Signed EXAMINATION: CHEST SINGLE (PORTABLE) INDICATION: Confusion COMP ARISON: Chest radiograph of 12/05/2017 FINDINGS: LINES/TUBES:None LUNGS:The lungs are well-inflated. No focal consolidation. There is perihil ar fullness and indistinctness of the pulmonary vasculature. PLEURA:No pl eural effusion or pneumothorax. MEDIASTINUM:Cardiomediastinal silhouette is stably enlarged. Atherosclerotic calcifications of the thoracic aorta. B ONES/SOFT TISSUES:No acute osseous injury. Old right acromioclavicular injury. ABDOMEN:No free air under the diaphragm. IMPRESSION: Cardiomegaly and mild pulmonary edema. Signed by: Saravanan Fragoso MD on 02/20/2019 3:16 PM Dictated By: SARAVANAN FRAGOSO MD 15 COPY TO: XAVIER WATKINS [employer] WORK[employer] - XR ANKLE 3 + V [id number] 18:39:00 FAX: Donaldo Reid MD [phone] [place]: B St: ADM FAX: Stefano Craven MD Name: TAMIKA KELLY [facility] : 1940 Age/S: 77/F [address] [facility] Unit #: [id number] Loc: [place] [address] Phys: Stefano Craven MD Acct: [id number] Dis Date: Status: ADM IN PHONE #: [phone] Exam Date: 11/04/2018 181 FAX #: [phone] Reason: pain, EXAMS: CPT CODE: [id number] XR ANKLE 3 + V RT [address]18 REASON FOR EXAM: pain, EXAM ORDER DATE: 11/04/2018 5:42 PM Ordering M.Chari: Stefano Craven MD PROCEDURE: - XR ANKLE 3 + V RT FINDINGS: 3 views of the right ankle were obtained. An oblique fracture of the distal right fibula at the level of the ankle mortise. The joint spaces are maintained. The syndesmosis is intact. IMPRESSION: Stable appearance of the distal right fibula fracture Electronically Signed by Colin Munson 11/04/2018 at 1839 Reported and signed by: Addi Costa CC: Donaldo Rodriguez MD; Stefano Craven MD Technologist: RICCI PIMENTEL; Kiko Winters RT(R Trnscrd Date/Time/By: 11/04/2018 (1838) : By: BillVTL Orig Print D/T: S: 0 11/04/2018 (655) PAGE 1 Signed Re port - XR FOOT 3 + V [id number] 18:39:00 FAX: Donaldo Reid MD [phone] [place]: St: ADM FAX: Stefano Craven MD Name: TAMIKA KELLY [facility] : 1940 Age/S: 77/F [address] [facility] Unit #: [id number] Loc: [place] [address] Phys: Stefano Craven MD Acct: [id number] Dis Date: Status: ADM IN PHONE #: [phone] Exam Date: 11/04/2018 181 FAX #: [phone] Reason: pain, EXAMS: CPT CODE: [id number] XR FOOT 3 + V RT 13432 REASON FOR EXAM: pain, EXAM ORDER DATE: 11/04/2018 5:42 PM Ordering MZi: Stefano Craven MD PROCEDURE: - XR FOOT 3 + V RT FINDINGS: 3 views of the right foot were obtained. The osseous structures are unremarkable in size and shape. The joint spaces are maintained. No evidence of fracture. The phalanges are intact. The metatarsal and tarsal bones are unremarkable IMPRESSION: Unremarkable right foot at 1839 Reported an d signed by: Luis Garcia M.D. CC: Donaldo Rodriguez MD; Meli Craven MD Technologist: RICCI PIMENTEL; Kiko Bhardwaj a, RT(R Trnscrd Date/Time/By: 11/04/2018 (1838) : By: Lance Orig Print D/T: S: 11/04/2018 (0234) PAGE 1 Signed Report - CT LOWER EXTRM W/O C [id number] 17:16:00 Name: TAMIKA KELLY [facility] : 1940 Age/S: 77 / F [address] [facility] [id number] Loc: [place] [address] Phys: Stefano Craven MD Acct: [id number] Dis Date: Status: REG ER PHONE #: [phone] Exam Date: 11/04/2018 1708 FAX #: [phone] Reason: ambulatory dysfunction EXAMS: CPT CODE: [id number] CT LOWER EXTRM W/[place] [address] REASON FOR EXAM: ambulatory dysfunction EXAM ORDER DATE: 11/04/2018 4:21 PM Ordering M.DJerry: Stefano Craven MD PROCEDURE: - CT LOWER EXTRM W/O C RT FINDINGS: CT images of the right knee were obtained without IV contrast at 2.5mm. Reconstructed coronal and sagittal images were also provided. Dose modulation, iterative reconstruction, and/or weight based adjustment of the MA/KV was utilized to reduce the radiation dose to as low as reasonably achievable. The osseous structures are intact. The anterior, lateral osteophytes associated with cystic degenerative changes. No evidence of acute fracture. Mild narrowing of the medial compartment. No evidence of joint effusion IMPRESSION: Degenerative changes. No acute osseous abnormality at 1716 Reported and signed by: Luis Garcia M.D. CC: Donaldo Rodriguez MD; Stefano Craven MD Technologist:Brooke Serrano RT(R); Sharlene CTDI: DLP: Trnscb Date/Time: 11/04/2018 (171) OliveL Orig Print D/T: S: 11/04/2018 (5363) PAGE 1 Signed Report URINALYSIS [id number] 17:12:00* Test Item Value Reference Range Interpretation Comments UA COLOR (test code = COLU) YELLOW YELLOW UA APPEARANCE (test code = APPU) Cloudy CLEAR A UA GLUCOSE DIPSTICK (test code = DGLUU) NEGATIVE mg/dL NEGATIVE UA BILIRUBIN DIPSTICK (test code = BILU) NEGATIVE mg/dL NEGATIVE UA KETONE DIPSTICK (test code = KETU) 10 (1+) mg/dL NEGATIVE A UA SPECIFIC GRAVITY (test code = SGU) 1.023 1.001-1.035 UA BLOOD DIPSTICK (test code = TONIE) 0.2 mg/dL (2+) mg/dL NEGATIVE A UA PH DIPSTICK (test code = SANTIAGO) 6.0 5.0-8.0 UA PROTEIN DIPSTICK (test code = PROU) 10 (Trace) mg/dL NEGATIVE A UA UROBILINIOGEN DIPSTICK (test code = URO) Normal mg/dL NEGATIVE UA NITRITE DIPSTICK (test code = JOHANNE) NEGATIVE NEGATIVE UA LEUKOCYTE ESTERASE W REFLEX (test code = LEUUR) 500 [place]/u L (3+) [place]/uL NEGATIVE A UA WBC (test code = WBCU) 101-150 per HPF 0-5 A UA RBC (test code = RBCU) 21-50 #/HPF 0-5 UA WBC CLUMPS (test code = WBCUCL) 3-6 /HPF NONE A UA EPITHELIAL CELLS (test code = EPIU) MOD per HPF FEW UA BACTERIA (test code = BACU) MANY #/HPF NONE A UA MUCUS (test code = MUCU) FEW #/LPF FEW Urine Source? Clean Catch- XR FEMUR MIN 2 VWS [id number] 17:12:00 FAX: Donaldo Reid MD [phone] [place]: St: [facility] FAX: Stefano Craven MD Name: TAMIKA KELLY [facility] : 1940 Age/S: 77/F [address] Unit #: [id number] Loc: [place] [address] Phys: Stefano Craven MD Acct: [id number] Dis Date: Status: REG ER PHONE #: [phone] Exam Date: 11/04/2018 1639 FAX #: [phone] Reason: fall, pain, refuses to ambulate EXAMS: CPT CODE: [id number] XR FEMUR MIN [address] [place] [address] REASON FOR EXAM: fall, pain, refuses to ambulate EXAM ORDER DATE: 11/04/2018 4:21 PM Paulie anders M.D.: Stefano Craven MD PROCEDURE: - XR FEMUR MIN 2 VWS RT FINDINGS: 3 views of the right femur were obtained. The osseous st ructures are unremarkable in size and shape. Moderate narrowing of the mayra nt space. No evidence of fracture. There is normal alignment of the right hip joint IMPRESSION: Degenerative changes. No acute findings at 3212 Reported and signed by: Luis Garcia M.D. CC: Donaldo Marcial MD; Stefano Craven MD Technologist: RICCI Marquez; YODIT KAISER RT(R) Trnscrd Date/Time/By: 11/04/2018 (171 2) : By: BillVTL Orig Print D/T: S: 11/04/2018 (1161) PAGE 1 Signed Report - XR FEMUR MIN 2 VWS [id number] 17:12:00 FAX: Donaldo Reid MD [phone] [place]: St: REG FAX: Stefano Craven MD Name: TAMIKA KELLY [facility] : 1940 Age/S: 77/F [address] [facility] Unit #: [id number] Loc: [place] [address] Phys: Stefano Craven MD Acct: [id number] Dis Date: Status: REG ER PHONE #: [phone] Exam Date: 11/04/2018 1639 FAX #: [phone] Reason: fall, pain, refuses to ambulate EXAMS: CPT CODE: [id number] XR FEMUR MIN [address] [place] [address] REASON FOR EXAM: fall, pain, refuses to ambulate EXAM ORDER DATE: 11/04/2018 4:21 PM Paulie anders M.D.: Stefano Craven MD PROCEDURE: - XR FEMUR MIN 2 VWS LT FINDINGS: 3 views of the left femur were obtained. The osseous str uctures are unremarkable in size and shape. Moderate narrowing of the mayra nt space.. No evidence of fracture. There is normal alignment of the left hip joint IMPRESSION: Degenerative changes. No acute findings at 6062 Reported and signed by: Luis Garcia M.D. CC: Donaldo Buchanan MD; Stefano Craven MD Technologist: RICCI BLACKMAN(R) Trnscrd Date/Time/By: 11/04/2018 (25 03) : By: [email or web address] Orig Print D/T: S: 11/04/2018 (2952) PAGE 1 Signed Report - XR TIBIA/FIBULA 2 V [id number] 17:11:00 FAX: Donaldo Redi MD [phone] [place]: B St: REG FAX: Stefano Craven MD Name: TAMIKA KELLY [facility] : 1940 Age/S: 77/F [address] [facility] Unit #: [id number] Loc: [place] [address] Phys: Stefano Craven MD Acct: [id number] Dis Date: Status: REG ER PHONE #: [phone] Exam Date: 11/04/2018 1639 FAX #: [phone] Reason: fall, pain, refuses to ambulate EXAMS: CPT CODE: [id number] XR TIBIA/FIB[place] [address] [place] [address] REASON FOR EXAM: fall, pain, refuses to ambulate EXAM ORDER DATE: 11/04/2018 4:21 PM Paulie anders M.D.: Stefano Craven MD PROCEDURE: - XR TIBIA/FIBULA 2 V BI FINDINGS: 4 views of the bilateral lower extremities were obtained. Minimally displaced oblique fracture of the distal right fibula. Severe narrowing of the medial compartments of both knees. The knee joints and a nkle joints are grossly intact IMPRESSION: Minimally dis placed oblique fracture of the distal right fibula Johni sridevi Signed by Colin Garcia on 11/04/2018 at 1711 Repor dena and signed by: Luis Garcia M.D. CC: Donaldo Rodriguez MD; Stefano Craven MD Technologist: RICCI PIMENTEL; YODIT KAISER RT( R) Trnscrd Date/Time/By: 11/04/2018 (5232) : By: [email or web address] Orig Print D/T: S: 11/04/2018 (5377) PAGE 1 Signed Report BASIC METABOLIC [id number] 15:47:00* Test Item Value Reference Range Interpretation Comments SODIUM (test code = NA) 141 mmol/L 136-145 N POTASSIUM (test code = K) 3.5 mmol/L 3.5-5.1 N CHLORIDE (test code = CL) 106.0 mmol/L 98-107 N CARBON DIOXIDE (test code = CO2) 28.0 mmol/L 21-32 N ANION GAP (test code = GAP) 10.5 10-20 N GLUCOSE (test code = GLU) 104 mg/dL 74-106 N BLOOD UREA NITROGEN (test code = BUN) 10 mg/dL 7-18 N GLOMERULAR FILTRATION RATE (test code = GFR) > 60 mL/min >=60 Estimated GFR by using Modified MDRD formula.Chronic kidney disease is defined as either kidney damageor GFR <60 mL/min/1.73 m2 for >3 months. CREATININE (test code = CREAT) 0.59 mg/dL 0.55-1.02 N Note change in reference range due to change in reagent. BUN/CREATININE RATIO (test code = BUN/CREA) 16.9 10-20 N CALCIUM (test code = CA) 8.9 mg/dL 8.5-10.1 N HEPATIC FUNCTION [id number] 15:47:00* Test Item Value Reference Range Interpretation Comments TOTAL PROTEIN (test code = PROT) 7.7 gram/dL 6.4-8.2 N ALBUMIN (test code = ALB) 3.0 g/dL 3.4-5.0 L GLOBULIN (test code = GLOB) 4.7 gram/dL 2.7-4.2 H ALBUMIN/GLOBULIN RATIO (test code = A/G) 0.6 0.75-1.50 L BILIRUBIN TOTAL (test code = BILT) 0.90 mg/dL 0.0-1.0 N BILIRUBIN DIRECT (test code = BILD) 0.18 mg/dL 0.0-0.20 N SGOT/AST (test code = AST) 31 IUnit/L 15-37 N SGPT/ALT (test code = ALT) 30 IUnit/L 12-78 N ALKALINE PHOSPHATASE TOTAL (test code = ALKP) 94 IUnit/L 45-117 N Note change in reference range due to change in reagent. CREATINE KINASE (CK)2018-11-04 15:47:00* Test Item Value Reference Range Interpretation Comments CREATINE KINASE (CK) (test code = CK) 105 IUnit/L 26-208 N THYROID STIMULATING [id number] 15:47:00* Test Item Value Reference Range Interpretation Comments THYROID STIMULATING HORMONE (test code = TSH) 4.440 uIU/mL 0.36-3.7 4 H TSH REFERENCE RANGES: EUTHYROID: 0.35 - 4.3 mIU/mL HYPO : > 5.5 mIU/mL HYPER : < 0.35 mIU/mL [id number] 15:47:00* Test Item Value Reference Range Interpretation Comments TROPONIN-I (test code = TROPI) <0.015 ng/mL 0-0.045 N BASIC METABOLIC [id number] 15:05:00* Test Item Value Reference Range Interpretation Comments SODIUM (test code = NA) 141 mmol/L 136-145 N POTASSIUM (test code = K) 3.5 mmol/L 3.5-5.1 N CHLORIDE (test code = CL) 106.0 mmol/L 98-107 N CARBON DIOXIDE (test code = CO2) mmol/L 21-32 ANION GAP (test code = GAP) 10-20 GLUCOSE (test code = GLU) mg/dL 74-106 BLOOD UREA NITROGEN (test code = BUN) mg/dL 7-18 GLOMERULAR FILTRATION RATE (test code = GFR) mL/min >=60 CREATININE (test code = CREAT) mg/dL 0.55-1.02 BUN/CREATININE RATIO (test code = BUN/CREA) 10-20 CALCIUM (test code = CA) mg/dL 8.5-10.1 HEPATIC FUNCTION [id number] 15:05:00* Test Item Value Reference Range Interpretation Comments TOTAL PROTEIN (test code = PROT) gram/dL 6.4-8.2 ALBUMIN (test code = ALB) g/dL 3.4-5.0 GLOBULIN (test code = GLOB) gram/dL 2.7-4.2 ALBUMIN/GLOBULIN RATIO (test code = A/G) 0.75-1.50 BILIRUBIN TOTAL (test code = BILT) mg/dL 0.0-1.0 BILIRUBIN DIRECT (test code = BILD) mg/dL 0.0-0.20 SGOT/AST (test code = AST) IUnit/L 15-37 SGPT/ALT (test code = ALT) IUnit/L 12-78 ALKALINE PHOSPHATASE TOTAL (test code = ALKP) IUnit/L 45-117 CREATINE KINASE (CK)2018-11-04 15:05:00* Test Item Value Reference Range Interpretation Comments CREATINE KINASE (CK) (test code = CK) IUnit/L 26-208 THYROID STIMULATING [id number] 15:05:00* Test Item Value Reference Range Interpretation Comments THYROID STIMULATING HORMONE (test code = TSH) uIU/mL 0.36-3.7 4 [id number] 15:05:00* Test Item Value Reference Range Interpretation Comments TROPONIN-I (test code = TROPI) ng/mL 0-0.045 CBC W/AUTO [id number] 14:51:00* Test Item Value Reference Range Interpretation Comments WHITE BLOOD CELL (test code = WBC) 8.1 K/mm3 4.5-12.5 N RED BLOOD CELL (test code = RBC) 4.90 mill/mm3 3.7-5.2 N HEMOGLOBIN (test code = HGB) 14.6 gram/dL 11.5-15.5 N HEMATOCRIT (test code = HCT) 44.1 % 36.0-46.0 N MEAN CELL VOLUME (test code = MCV) 90.0 fL 80-98 N MEAN CELL HGB (test code = MCH) 29.8 picogram 27.0-33.0 N MEAN CELL HGB CONCETRATION (test code = MCHC) 33.1 gram/dL 33.0-36. 0 N RED CELL DISTRIBUTION WIDTH (test code = RDW) 13.1 % 11.6-16. 2 N RED CELL DISTRIBUTION WIDTH SD (test code = RDW-SD) 43.2 fL 37 .0-51.0 N PLATELET COUNT (test code = PLT) 210 K/mm3 150-450 N MEAN PLATELET VOLUME (test code = MPV) 11.5 fL 6.7-11.0 H NEUTROPHIL % (test code = NT%) 64.5 % 39.0-69.0 N IMMATURE GRANULOCYTE % (test code = IG%) 0.5 % 0.0-5.0 N LYMPHOCYTE % (test code = LY%) 24.3 % 25.0-55.0 L MONOCYTE % (test code = MO%) 9.1 % 0.0-10.0 N EOSINOPHIL % (test code = EO%) 1.4 % 0.0-5.0 N BASOPHIL % (test code = BA%) 0.2 % 0.0-1.0 N NUCLEATED RBC % (test code = NRBC%) 0.0 % 0-0 N NEUTROPHIL # (test code = NT#) 5.24 K/mm3 1.8-7.7 N IMMATURE GRANULOCYTE # (test code = IG#) 0.04 x10 3/uL 0-0.03 H LYMPHOCYTE # (test code = LY#) 1.97 K/mm3 1.0-5.0 N MONOCYTE # (test code = MO#) 0.74 K/mm3 0-0.8 N EOSINOPHIL # (test code = EO#) 0.11 K/mm3 0.0-0.5 N BASOPHIL # (test code = BA#) 0.02 K/mm3 0.0-0.2 N NUCLEATED RBC # (test code = NRBC#) 0.00 K/mm3 0.0-0.1 N MANUAL DIFF REQUIRED (test code = MDIFF) NO CBC W/AUTO [id number] 14:43:00* Test Item Value Reference Range Interpretation Comments WHITE BLOOD CELL (test code = WBC) K/mm3 4.5-12.5 RED BLOOD CELL (test code = RBC) mill/mm3 3.7-5.2 HEMOGLOBIN (test code = HGB) 14.6 gram/dL 11.5-15.5 N HEMATOCRIT (test code = HCT) 44.1 % 36.0-46.0 N MEAN CELL VOLUME (test code = MCV) fL 80-98 MEAN CELL HGB (test code = MCH) picogram 27.0-33.0 MEAN CELL HGB CONCETRATION (test code = MCHC) gram/dL 33.0-36. 0 RED CELL DISTRIBUTION WIDTH (test code = RDW) % 11.6-16. 2 RED CELL DISTRIBUTION WIDTH SD (test code = RDW-SD) fL 37 .0-51.0 PLATELET COUNT (test code = PLT) K/mm3 150-450 MEAN PLATELET VOLUME (test code = MPV) fL 6.7-11.0 NEUTROPHIL % (test code = NT%) % 39.0-69.0 IMMATURE GRANULOCYTE % (test code = IG%) % 0.0-5.0 LYMPHOCYTE % (test code = LY%) % 25.0-55.0 MONOCYTE % (test code = MO%) % 0.0-10.0 EOSINOPHIL % (test code = EO%) % 0.0-5.0 BASOPHIL % (test code = BA%) % 0.0-1.0 NEUTROPHIL # (test code = NT#) K/mm3 1.8-7.7 LYMPHOCYTE # (test code = LY#) K/mm3 1.0-5.0 MONOCYTE # (test code = MO#) K/mm3 0-0.8 EOSINOPHIL # (test code = EO#) K/mm3 0.0-0.5 BASOPHIL # (test code = BA#) K/mm3 0.0-0.2 TROPONIN I [id number] 14:25:00* Test Item Value Reference Range Interpretation Comments TROPONIN I RAPID (test code = TROPIRAP) 0.01 ng/mL <0.08 Please Note New Reference Range 0.00-0.079 ng/mL - Negative>or= 0.08 ng/mL - Positive The use of serial sampling and testing protocol is arecommended practice.An elevated troponin level alone is often not sufficient fordiagnosis of myocardial infarction. Troponin results obtained by different assays may vary.Evaluation of the extent of myocardial damage based onincrease of troponin would be valid only if similarmethodology is used. - XR HIP W/PEL UNI 2+V [id number] 12:51:00 FAX: Chris Fernandez MD [phone] [place]: [place] St: REG FAX: Donaldo Reid MD [phone] Name: TAMIKA KELLY [facility] : 1940 Age/S: 77/F [address] [facility] [address] Unit #: [id number] Loc: [facility] B Phys: Chris Fernandez MD [place], [place] [address] Acct: [id number] Dis Date: Status: REG ER PHONE #: Exam Date: 11/02/2018 1227 FAX #: Reason: pain s/p fall EXAMS: CPT CODE: [id number] XR HIP W/PEL UNI 2+V [place] [address] HISTORY: pain s/p fall EXAM: AP pelvis AP and frog- leg view of the right hip Comparison: None FINDINGS: No acute fracture of the bony pelvis. No diastases of the SI joints or pubic symphysis. Degenerative changes are present in the pubic symphysis. Hip joints are not dislocated. Proximal femurs are intact. Lower lumbar spine is unremarkable. Vascular calcifications are seen throughout the bilateral femoral arteries. IMPRESSION: Negative radiographic examination of the bony pelvis and right hip. at 0216 Reported and signed by: Alex Nick MD CC: Chris Fernandez MD; Donaldo Rodriguez MD Technologist: TENNILLE VILLARREAL RT(R)(CT) Trnscrd Date/Time/By: 11/02/2018 (8538) : By: [email or web address] Orig Print D/T: S: 11/02/2018 (9009) PAGE 1 Signed Report - XR KNEE 1 OR 2 V [id number] 12:46:00 FAX: Chris Fernandez MD [phone] [place]: [place] St: REG FAX: Y Donaldo Rodriguez MD [phone] Name: TAMIKA KELLY [facility] : 1940 Age/S: 77/F [address] [facility] Unit #: [id number] Loc: [facility] [address] Phys: Chris Fernandez MD [place], [place] [address] Acct: [id number] Dis Date: Status: REG ER PHONE #: Exam Date: 11/02/2018 1227 FAX #: Reason: pain s/p fall EXAMS: CPT CODE: [id number] XR KNEE 1 OR 2 [place] [id number] CLINICAL HISTORY: pain s/p fall TECHNIQUE: AP and lateral views of the bilateral knees COMPARISON: None FINDINGS: No fracture is seen. There is narrowing of the knee joint spaces that is most pronounced in the lateral compartment of the right knee and medial compartment of the left knee. There are large osteophytes in the femur and tibia and patella bilaterally. No joint effusion. Atherosclerotic disease is seen throughout the bilateral superficial femoral and popliteal arteries and extends into the infrapopliteal vessels. IMPRESSION: Severe degenerative changes of both knees. Extensive vascular calcifications in both lower extremities. at 3916 Reported and signed by: Alex Nick MD CC: Chris Fernandez MD; Donaldo Rodriguez MD Technologist: TENNILLE VILLARREAL RT(R)(CT) Trnscrd Date/Time/By: 11/02/2018 (7957) : By: [email or web address] Orig Print D/T: S: 11/02/2018 (6197) PAGE 1 Signed Report - XR KNEE 1 OR 2 V [id number] 12:46:00 FAX: Chris Fernandez MD [phone] [place]: [place] St: REG FAX: Y Donaldo Rodriguez MD [phone] Name: TAMIKA KELLY [facility] FSED : 1940 Age/S: 77/F [address] [facility] [address] Unit #: [id number] Loc: [facility] [address] Phys: Chris Fernandez MD [place], [place] [address] Acct: [id number] Dis Date: Status: REG ER PHONE #: Exam Date: 11/02/2018 1227 FAX #: Reason: pain s/p fall EXAMS: CPT CODE: [id number] XR KNEE 1 OR 2 V RT [address] CLINICAL HISTORY: pain s/p fall TECHNIQUE: AP and lateral views of the bilateral knees COMPARISON: None FINDINGS: No fracture is seen. There is narrowing of the k nee joint spaces that is most pronounced in the lateral compartment of the right knee and medial compartment of the left knee. There are large osteo phytes in the femur and tibia and patella bilaterally. No joint effusion. Atherosclerotic disease is seen throughout the bilateral superficial femor al and popliteal arteries and extends into the infrapopliteal vessels. IMPRESSION: Severe degenerative changes of both knees. Extensive vascular calcifications in both lower extremities. at 1246 Reported and signed by: Alex Nick MD CC: Chris Fernandez MD; Donaldo Rodriguez MD Technologist: TENNILLE AGUILAR ONS RT(R)(CT) Trnscrd Date/Time/By: 11/02/2018 ( 9667) : By: [email or web address] Orig Print D/T: S: 11/02/2018 (0129) PAGE 1 Signed Report - CT HEAD/BRAIN W/O [id number] 22:31:00 Name: TAMIKA KELLY [facility] FSED : 1940 Age/S: 77 / F [address] [facility] [address] Unit #: [id number] Loc: [address] Phys: Tiana Perales MD [place], [place] [address] Acct: [id number] Dis Date: Status: REG ER PHONE #: Exam Date: 11/01/2018 2149 FAX #: Reason: FALL EXAMS: CPT CODE: [id number] CT HEAD/BRAIN W/O CONT 52280 HISTORY: FALL TECHNIQUE: Noncontrast 2.[address] of the head. Examination acquired within 24 hours of arrival. Automated exposure control for dose reduction. COMPARISON: None FINDINGS: No acute hemorrhage. No intracranial mass, mass effect, or midline shift. No CT evidence of acute infarct. Coffman-white matter differentiation is preserved. No hydrocephalus. No extra-axial fluid collection. There is diffuse cortical atrophy with ventriculomegaly and there is also decreased attenuation of the periventricular white matter compatible with chronic microvascular i schemic changes. Visualized paranasal sinuses are clear. Partial o pacification of the right mastoid air cells. The left Mastoid air cells an d middle ear cavities are clear. Postsurgical changes are present in the b ilateral lobes, possibly for treatment of glaucoma.. Calvarium and skull b ase are intact. IMPRESSION: No acute intr acranial process. Diffuse cortical atrophy and white matter microvascula r ischemic changes. Partial opacification of the right mastoid air cells. Please correlate clinically for mastoiditis. Elec tronically Signed by Alex Nick MD on 11/01/2018 at 2231 Reported and signed by: Alex Nick MD CC: Donaldo Rodriguez MD Technologist:Chadwick Villarreal CTDI: DLP: Trnscb Date/Time: 11/01/2018 (2230) [email or web address] Orig Print D/T: S: 11/01/2018 (7538) PAGE [address] BRAIN [id number] 14:15:00 [place] [address] Patient Name: TAMIKA KELLY MR #: [id number] : 1940 Age/Sex: 77/F Req #: [id number] Adm Physician: Ordered by: TORIE LAWRENCE NP Report #: [id number] Location: [facility] [place]/Bed: Procedure: [id number] CT/CT BRAIN WO Exam Date : 01/14/18 Exam Time: 1335 REPORT STATUS: Taylor d Exam: Head CT without contrast History: Trauma, fall, hit head Compari son studies: None Technique: Axial images were obtained from the skull b ase to the vertex. Coronal and sagittal images reconstructed from the axial da ta. Dose modulation, iterative reconstruction, and/or weight based adjustment of the mA/kV was utilized to reduce the radiation dose to as low as reasonably achievable. Radiation dose: Total DLP: None are 21 mGy*cm. Nancy mated effective dose: DLP x 0.015 Intravenous contrast: None Findings: Scalp: Large 6.5 cm AP x 1.2 cm TV left frontal scalp hematoma. Bones: No fractures, blastic or lytic lesions. Brain sulci: Mildly prominent. Ventr icles: Mild compensatory dilatation. No hydrocephalus. 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 Parenchyma: No mass, acute hemorrhage or acute cortic al vascular insults. Scattered and mildly confluent ill-defined hypodensities in the supratentorial white matter are nonspecific but most compatible with ch ronic microvascular ischemic changes. Disproportionate volume loss along the l eft greater than right anteromedial temporal lobes and hippocampi. Sellar /suprasellar region: No abnormalities. Craniocervical junction: Patent foramen magnum. No Chiari one malformation. Incidental findings: Atherosclerotic calcifications in the carotid siphons and near the vertebral basilar junction. Chronic inflammatory changes in the right mastoids which are partially opac ified with sclerotic changes. IMPRESSION: 1. Large left frontal scal p hematoma without fracture. 2. No acute intracranial abnormalities. 3. Mo derate chronic microvascular ischemic changes. 4. Mild generalized volume los s. Disproportionate volume loss along the anteromedial temporal lobes and vadim ocampi (left greater than right) which can be seen along the Alzheimer/dementi a spectrum in the appropriate clinical setting. Signed by: Dr. Barb horne M.D. on 01/14/2018 2:21 PM Dictated By: BARB ADDISON MD [facility] Signed By: BARB ADDISON MD on 01/14/181420 Transcribed By: MARY on 01/14/181420 COPY TO: TORIE LAWRENCE NP Sodium Level 2017-12-12 05:28:00* Test Item Value Reference Range Interpretation Comments Sodium Level (test code = 2951-2) 136 136-145 [facility] CenterPotassium Oznyf4442-86-88 05:28:00* Test Item Value Reference Range Interpretation Comments Potassium Level (test code = 2823-3) 4.0 3.5-5.1 [facility] CenterChloride Gvsqg8250-66-08 05:28:00* Test Item Value Reference Range Interpretation Comments Chloride Level (test code = 2075-0) 102 98-107 [facility] CenterCarbon Dioxide Jhoje3655-36-55 05:28:00* Test Item Value Reference Range Interpretation Comments Carbon Dioxide Level (test code = 2028-9) 26 22-29 [facility] CenterAnion Wak4884-99-84 05:28:00* Test Item Value Reference Range Interpretation Comments Anion Gap (test code = 24966-3) 12.0 8-16 [facility] CenterBlood Urea Zulcvksi0814-38-72 05:28:00* Test Item Value Reference Range Interpretation Comments Blood Urea Nitrogen (test code = 3094-0) 16 7-26 [facility] CenterCreatinine2018-09-05 05:28:00* Test Item Value Reference Range Interpretation Comments Creatinine (test code = 2160-0) 0.83 0.57-1.11 [facility] CenterBUN/Creatinine Rpjwq3365-49-40 05:28:00* Test Item Value Reference Range Interpretation Comments BUN/Creatinine Ratio (test code = 3097-3) 19 - [facility] CenterEstimat Glomerular Filtration Rate 2017-12-12 05:28:00* Test Item Value Reference Range Interpretation Comments Estimat Glomerular Filtration Rate (test code = 39753-9) 60- >60 Ranges were taken from the National Kidney Disease Education Program and the [facility] Kidney Foundation literature.Reference ranges:60 or greater: Ffldmj16-56 ( for 3 consecutive months): Chronic kidney disease 15 or less: Kidney failureValley Regional Medical CenterGlucose Rzweg7671-30-79 05:28:00* Test Item Value Reference Range Interpretation Comments Glucose Level (test code = TCF7159) 98 74-118 [facility] CenterCalcium Whscm0564-29-87 05:28:00* Test Item Value Reference Range Interpretation Comments Calcium Level (test code = 22628-7) 9.4 8.4-10.2 [facility] Centerodium Glhxf7157-27-83 05:28:00* Test Item Value Reference Range Interpretation Comments Sodium Level (test code = 2951-2) 136 136-145 [facility] CenterPotassium Ndahs2661-39-35 05:28:00* Test Item Value Reference Range Interpretation Comments Potassium Level (test code = 2823-3) 4.0 3.5-5.1 [facility] CenterChloride Afbby2745-31-04 05:28:00* Test Item Value Reference Range Interpretation Comments Chloride Level (test code = 2075-0) 102 98-107 [facility] CenterCarbon Dioxide Wfeum9455-74-84 05:28:00* Test Item Value Reference Range Interpretation Comments Carbon Dioxide Level (test code = 2028-9) 26 22-29 [facility] CenterAnion Nag4142-52-63 05:28:00* Test Item Value Reference Range Interpretation Comments Anion Gap (test code = 17049-7) 12.0 8-16 [facility] CenterBlood Urea Dpklboip3012-86-26 05:28:00* Test Item Value Reference Range Interpretation Comments Blood Urea Nitrogen (test code = 3094-0) 16 7-26 [facility] CenterCreatinine2018-09-05 05:28:00* Test Item Value Reference Range Interpretation Comments Creatinine (test code = 2160-0) 0.83 0.57-1.11 [facility] CenterBUN/Creatinine Qmhty1690-59-48 05:28:00* Test Item Value Reference Range Interpretation Comments BUN/Creatinine Ratio (test code = 3097-3) 19 6- [facility] CenterEstimat Glomerular Filtration Rate 2017-12-12 05:28:00* Test Item Value Reference Range Interpretation Comments Estimat Glomerular Filtration Rate (test code = 813560714) 60- >60 Ranges were taken from the National Kidney Disease Education Program and the [facility] Foundation literature.Reference ranges:60 or greater: Fjnxti19-82 ( for 3 consecutive months): Chronic kidney disease 15 or less: Kidney failureValley Regional Medical CenterGlucose Ezheo0596-64-17 05:28:00* Test Item Value Reference Range Interpretation Comments Glucose Level (test code = BWF8497) 98 74-118 [facility] CenterCalcium Ondft6928-39-70 05:28:00* Test Item Value Reference Range Interpretation Comments Calcium Level (test code = 51591-2) 9.4 8.4-10.2 [facility] CenterWhite Blood Uvdze0625-87-70 05:25:00* Test Item Value Reference Range Interpretation Comments White Blood Count (test code = 6690-2) 6.41 4.8-10.8 [facility] CenterRed Blood Uysix0070-30-64 05:25:00* Test Item Value Reference Range Interpretation Comments Red Blood Count (test code = 789-8) 4.38 3.6-5.1 [facility] CenterHemoglobin2018-09-05 05:25:00* Test Item Value Reference Range Interpretation Comments Hemoglobin (test code = 91930-5) 13.4 12.0-16.0 [facility] CenterHematocrit2018-09-05 05:25:00* Test Item Value Reference Range Interpretation Comments Hematocrit (test code = 4544-3) 40.2 34.2-44.1 [facility] CenterMean Corpuscular Gusznf5752-33-25 05:25:00* Test Item Value Reference Range Interpretation Comments Mean Corpuscular Volume (test code = 787-2) 91.8 81-99 [facility] CenterMean Corpuscular Xeoyeevbfn5573-31-94 05:25:00* Test Item Value Reference Range Interpretation Comments Mean Corpuscular Hemoglobin (test code = 785-6) 30.6 28-32 [facility] Hemoglobin Concent 2017-12-12 05:25:00* Test Item Value Reference Range Interpretation Comments Mean Corpuscular Hemoglobin Concent (test code = 786-4) 33.3 31-35 [facility] CenterRed Cell Distribution Upnpa9447-55-85 05:25:00* Test Item Value Reference Range Interpretation Comments Red Cell Distribution Width (test code = 98396-5) 13.3 11.7 -14.4 [facility] CenterPlatelet Nnywf7601-86-71 05:25:00* Test Item Value Reference Range Interpretation Comments Platelet Count (test code = 777-3) 198 140-360 [facility] CenterNeutrophils (%) (Auto)2017-12-12 05:25:00 * Test Item Value Reference Range Interpretation Comments Neutrophils (%) (Auto) (test code = 27247-2) 63.6 38.7-80.0 [facility] CenterLymphocytes (%) (Auto)2017-12-12 05:25:00 * Test Item Value Reference Range Interpretation Comments Lymphocytes (%) (Auto) (test code = 736-9) 26.2 18.0-39.1 [facility] CenterMonocytes (%) (Auto)2017-12-12 05:25:00* Test Item Value Reference Range Interpretation Comments Monocytes (%) (Auto) (test code = 5905-5) 7.8 4.4-11.3 [facility] CenterEosinophils (%) (Auto)2017-12-12 05:25:00 * Test Item Value Reference Range Interpretation Comments Eosinophils (%) (Auto) (test code = 713-8) 1.9 0.0-6.0 [facility] CenterBasophils (%) (Auto)2017-12-12 05:25:00* Test Item Value Reference Range Interpretation Comments Basophils (%) (Auto) (test code = 706-2) 0.3 0.0-1.0 [facility] CenterIM GRANULOCYTES %2017-12-12 05:25:00* Test Item Value Reference Range Interpretation Comments IM GRANULOCYTES % (test code = IM GRANULOCYTES %) 0.2 0.0- 1.0 [facility] CenterNeutrophils # (Auto)2017-12-12 05:25:00* Test Item Value Reference Range Interpretation Comments Neutrophils # (Auto) (test code = 751-8) 4.1 2.1-6.9 [facility] CenterLymphocytes # (Auto)2017-12-12 05:25:00* Test Item Value Reference Range Interpretation Comments Lymphocytes # (Auto) (test code = 28474-0) 1.7 1.0-3.2 [facility] CenterMonocytes # (Auto)2017-12-12 05:25:00* Test Item Value Reference Range Interpretation Comments Monocytes # (Auto) (test code = 742-7) 0.5 0.2-0.8 [facility] CenterEosinophils # (Auto)2017-12-12 05:25:00* Test Item Value Reference Range Interpretation Comments Eosinophils # (Auto) (test code = 711-2) 0.1 0.0-0.4 [facility] CenterBasophils # (Auto)2017-12-12 05:25:00* Test Item Value Reference Range Interpretation Comments Basophils # (Auto) (test code = 704-7) 0.0 0.0-0.1 [facility] CenterAbsolute Immature Granulocyte (auto 2017-12-12 05:25:00* Test Item Value Reference Range Interpretation Comments Absolute Immature Granulocyte (auto (lisa t code = Absolute Immature Granulocyte (auto) 0.01 0-0.1 [facility] CenterWhite Blood Ayqsa5060-59-26 05:25:00* Test Item Value Reference Range Interpretation Comments White Blood Count (test code = 6690-2) 6.41 4.8-10.8 [facility] CenterRed Blood Rdtfa1915-59-93 05:25:00* Test Item Value Reference Range Interpretation Comments Red Blood Count (test code = 789-8) 4.38 3.6-5.1 [facility] CenterHemoglobin2018-09-05 05:25:00* Test Item Value Reference Range Interpretation Comments Hemoglobin (test code = 22986-0) 13.4 12.0-16.0 [facility] CenterHematocrit2018-09-05 05:25:00* Test Item Value Reference Range Interpretation Comments Hematocrit (test code = 4544-3) 40.2 34.2-44.1 [facility] CenterMean Corpuscular Mrybdk9936-69-52 05:25:00* Test Item Value Reference Range Interpretation Comments Mean Corpuscular Volume (test code = 787-2) 91.8 81-99 [facility] CenterMean Corpuscular Wfzazgwnds1801-73-15 05:25:00* Test Item Value Reference Range Interpretation Comments Mean Corpuscular Hemoglobin (test code = 785-6) 30.6 28-32 [facility] CenterMean Corpuscular Hemoglobin Concent 2017-12-12 05:25:00* Test Item Value Reference Range Interpretation Comments Mean Corpuscular Hemoglobin Concent (test code = 786-4) 33.3 31-35 [facility] CenterRed Cell Distribution Uehiv1295-33-97 05:25:00* Test Item Value Reference Range Interpretation Comments Red Cell Distribution Width (test code = 80641-7) 13.3 11.7 -14.4 [facility] CenterPlatelet Srbpc3290-99-61 05:25:00* Test Item Value Reference Range Interpretation Comments Platelet Count (test code = 777-3) 198 140-360 [facility] CenterNeutrophils (%) (Auto)2017-12-12 05:25:00 * Test Item Value Reference Range Interpretation Comments Neutrophils (%) (Auto) (test code = 06612-0) 63.6 38.7-80.0 [facility] CenterLymphocytes (%) (Auto)2017-12-12 05:25:00 * Test Item Value Reference Range Interpretation Comments Lymphocytes (%) (Auto) (test code = 736-9) 26.2 18.0-39.1 [facility] CenterMonocytes (%) (Auto)2017-12-12 05:25:00* Test Item Value Reference Range Interpretation Comments Monocytes (%) (Auto) (test code = 5905-5) 7.8 4.4-11.3 [facility] CenterEosinophils (%) (Auto)2017-12-12 05:25:00 * Test Item Value Reference Range Interpretation Comments Eosinophils (%) (Auto) (test code = 713-8) 1.9 0.0-6.0 [facility] CenterBasophils (%) (Auto)2017-12-12 05:25:00* Test Item Value Reference Range Interpretation Comments Basophils (%) (Auto) (test code = 706-2) 0.3 0.0-1.0 [facility] CenterIM GRANULOCYTES %2017-12-12 05:25:00* Test Item Value Reference Range Interpretation Comments IM GRANULOCYTES % (test code = IM GRANULOCYTES %) 0.2 0.0- 1.0 [facility] CenterNeutrophils # (Auto)2017-12-12 05:25:00* Test Item Value Reference Range Interpretation Comments Neutrophils # (Auto) (test code = 751-8) 4.1 2.1-6.9 [facility] CenterLymphocytes # (Auto)2017-12-12 05:25:00* Test Item Value Reference Range Interpretation Comments Lymphocytes # (Auto) (test code = 71051-6) 1.7 1.0-3.2 [facility] CenterMonocytes # (Auto)2017-12-12 05:25:00* Test Item Value Reference Range Interpretation Comments Monocytes # (Auto) (test code = 742-7) 0.5 0.2-0.8 [facility] CenterEosinophils # (Auto)2017-12-12 05:25:00* Test Item Value Reference Range Interpretation Comments Eosinophils # (Auto) (test code = 711-2) 0.1 0.0-0.4 [facility] CenterBasophils # (Auto)2017-12-12 05:25:00* Test Item Value Reference Range Interpretation Comments Basophils # (Auto) (test code = 704-7) 0.0 0.0-0.1 [facility] CenterAbsolute Immature Granulocyte (auto 2017-12-12 05:25:00* Test Item Value Reference Range Interpretation Comments Absolute Immature Granulocyte (auto (lisa t code = Absolute Immature Granulocyte (auto) 0.01 0-0.1 [facility] CenterMagnesium Zeuap2552-34-37 05:52:00* Test Item Value Reference Range Interpretation Comments Magnesium Level (test code = 29550-5) 2.1 1.3-2.1 [facility] CenterMagnesium Dxaef0696-59-14 05:52:00* Test Item Value Reference Range Interpretation Comments Magnesium Level (test code = 81530-2) 2.1 1.3-2.1 [facility] CenterTotal Igpygqxgp7064-95-30 05:45:00* Test Item Value Reference Range Interpretation Comments Total Bilirubin (test code = 1975-2) 0.8 0.2-1.2 [facility] CenterAspartate Amino Transf (AST/SGOT) 2017-12-10 05:45:00* Test Item Value Reference Range Interpretation Comments Aspartate Amino Transf (AST/SGOT) (test code = Aspartate Amino Transf (AST/SGOT)) 24 5-34 [facility] CenterAlanine Aminotransferase (ALT/SGPT) 2017-12-10 05:45:00* Test Item Value Reference Range Interpretation Comments Alanine Aminotransferase (ALT/SGPT) (test code = 1742-6) 22 0-55 [facility] CenterTotal Ilxdvlb7181-58-84 05:45:00* Test Item Value Reference Range Interpretation Comments Total Protein (test code = 2885-2) 6.5 6.5-8.1 [facility] CenterAlbumin2018-09-03 05:45:00* Test Item Value Reference Range Interpretation Comments Albumin (test code = 1751-7) 2.9 3.5-5.0 L [facility] CenterGlobulin2018-09-03 05:45:00* Test Item Value Reference Range Interpretation Comments Globulin (test code = 74813-8) 3.6 2.3-3.5 H [facility] CenterAlbumin/Globulin Mhree0766-40-65 05:45:00 * Test Item Value Reference Range Interpretation Comments Albumin/Globulin Ratio (test code = 1759-0) 0.8 0.8-2.0 [facility] CenterAlkaline Wkemqmbrtle3702-79-28 05:45:00* Test Item Value Reference Range Interpretation Comments Alkaline Phosphatase (test code = 6768-6) 66 40-150 [facility] CenterTriglycerides Qbxto2667-59-82 05:45:00* Test Item Value Reference Range Interpretation Comments Triglycerides Level (test code = 2571-8) 72 0-149 [facility] CenterCholesterol Igoaz8428-39-85 05:45:00* Test Item Value Reference Range Interpretation Comments Cholesterol Level (test code = 2093-3) 159 0-199 Less than 200 mg/dL Low Ssww318 - 239 mg/dL Borderline Aqub990 m g/dl and greater High Risk [facility] CenterLDL Hphlobmvzrt6582-79-58 05:45:00* Test Item Value Reference Range Interpretation Comments LDL Cholesterol (test code = 2089-1) 78 60-130 [facility] CenterHDL Jafgiihnivn9331-20-19 05:45:00* Test Item Value Reference Range Interpretation Comments HDL Cholesterol (test code = 2085-9) 67 40-60 H [facility] CenterCholesterol/HDL Mlzrd6035-86-23 05:45:00 * Test Item Value Reference Range Interpretation Comments Cholesterol/HDL Ratio (test code = 9830-1) 2.4 3.0-3.6 L [facility] CenterTotal Drecqbonp2876-24-85 05:45:00* Test Item Value Reference Range Interpretation Comments Total Bilirubin (test code = 1975-2) 0.8 0.2-1.2 [facility] CenterAspartate Amino Transf (AST/SGOT) 2017-12-10 05:45:00* Test Item Value Reference Range Interpretation Comments Aspartate Amino Transf (AST/SGOT) (test code = Aspartate Amino Transf (AST/SGOT)) 24 5-34 [facility] CenterAlanine Aminotransferase (ALT/SGPT) 2017-12-10 05:45:00* Test Item Value Reference Range Interpretation Comments Alanine Aminotransferase (ALT/SGPT) (test code = 1742-6) 22 0-55 [facility] CenterTotal Aowguho8629-46-83 05:45:00* Test Item Value Reference Range Interpretation Comments Total Protein (test code = 2885-2) 6.5 6.5-8.1 [facility] CenterAlbumin2018-09-03 05:45:00* Test Item Value Reference Range Interpretation Comments Albumin (test code = 1751-7) 2.9 3.5-5.0 L [facility] CenterGlobulin2018-09-03 05:45:00* Test Item Value Reference Range Interpretation Comments Globulin (test code = 38234-2) 3.6 2.3-3.5 H [facility] CenterAlbumin/Globulin Cwbyu4619-58-71 05:45:00 * Test Item Value Reference Range Interpretation Comments Albumin/Globulin Ratio (test code = 1759-0) 0.8 0.8-2.0 [facility] CenterAlkaline Sitwsjqplcy3490-82-68 05:45:00* Test Item Value Reference Range Interpretation Comments Alkaline Phosphatase (test code = 6768-6) 66 40-150 [facility] CenterTriglycerides Xakqr7411-63-73 05:45:00* Test Item Value Reference Range Interpretation Comments Triglycerides Level (test code = 2571-8) 72 0-149 [facility] CenterCholesterol Iexqb7729-80-08 05:45:00* Test Item Value Reference Range Interpretation Comments Cholesterol Level (test code = 2093-3) 159 0-199 Less than 200 mg/dL Low Tjjl075 - 239 mg/dL Borderline Ukmq826 m g/dl and greater High Risk [facility] CenterLDL Evaktiixlvz2572-69-86 05:45:00* Test Item Value Reference Range Interpretation Comments LDL Cholesterol (test code = 2089-1) 78 60-130 [facility] CenterHDL Dyyclytcpxg5923-02-67 05:45:00* Test Item Value Reference Range Interpretation Comments HDL Cholesterol (test code = 2085-9) 67 40-60 H [facility] CenterCholesterol/HDL Zskbe6076-12-37 05:45:00 * Test Item Value Reference Range Interpretation Comments Cholesterol/HDL Ratio (test code = 9830-1) 2.4 3.0-3.6 L [facility] CenterThyroid Stimulating Hormone (TSH) 2017-12-10 05:40:00* Test Item Value Reference Range Interpretation Comments Thyroid Stimulating Hormone (TSH) (test code = 78670-6) 2.509 0.350-4.940 [facility] CenterThyroid Stimulating Hormone (TSH) 2017-12-10 05:40:00* Test Item Value Reference Range Interpretation Comments Thyroid Stimulating Hormone (TSH) (test code = 01026-2) 2.509 0.350-4.940 [facility] CenterHemoglobin A1c Eooualc5395-54-24 06:36:00 * Test Item Value Reference Range Interpretation Comments Hemoglobin A1c Percent (test code = Hemoglobin A1c Percent) 5.4 4.0-7.0 [facility] CenterHemoglobin A1c Uuwpreo6928-56-89 06:36:00 * Test Item Value Reference Range Interpretation Comments Hemoglobin A1c Percent (test code = Hemoglobin A1c Percent) 5.4 4.0-7.0 [facility] CenterB-Type Natriuretic Bnvkiif3844-82-91 05:15:00* Test Item Value Reference Range Interpretation Comments B-Type Natriuretic Peptide (test code = 61384-2) 40.9 0-100 [facility] CenterB-Type Natriuretic Ntxrmhr2447-56-13 05:15:00* Test Item Value Reference Range Interpretation Comments B-Type Natriuretic Peptide (test code = 97837-7) 40.9 0-100 [id number] 11:50:00* Test Item Value Reference Range Interpretation Comments Urine WBC (test code = 5821-4) 0-5 0-5 [facility] [id number] 11:50:00* Test Item Value Reference Range Interpretation Comments Urine RBC (test code = 69311-0) 0-5 0-5 [facility] Ivfwplbj2276-23-70 11:50:00* Test Item Value Reference Range Interpretation Comments Urine Bacteria (test code = 78671-8) NONE NONE [facility] Ep[facility]helial Ycihz4835-88-38 11:50:00 * Test Item Value Reference Range Interpretation Comments Urine Epithelial Cells (test code = 22965-1) RARE NONE [facility] [id number] 11:50:00* Test Item Value Reference Range Interpretation Comments Urine WBC (test code = 5821-4) 0-5 0-5 [facility] [id number] 11:50:00* Test Item Value Reference Range Interpretation Comments Urine RBC (test code = 93089-3) 0-5 0-5 [facility] Abumwoii1037-97-18 11:50:00* Test Item Value Reference Range Interpretation Comments Urine Bacteria (test code = 04765-7) NONE NONE [facility]helial Wtkcb9544-70-85 11:50:00 * Test Item Value Reference Range Interpretation Comments Urine Epithelial Cells (test code = 41613-2) RARE NONE [facility] Hkdzn7577-85-77 11:36:00* Test Item Value Reference Range Interpretation Comments Urine Color (test code = 5778-6) YELLOW YELLOW [facility] Hzkconl4307-66-45 11:36:00* Test Item Value Reference Range Interpretation Comments Urine Clarity (test code = 37893-0) CLEAR CLEAR [facility] Specific Bcwbzog3239-24-85 11:36:00 * Test Item Value Reference Range Interpretation Comments Urine Specific [place] (test code = 5811-5) 1.025 1.010-1.02 5 [facility] [id number] 11:36:00* Test Item Value Reference Range Interpretation Comments Urine pH (test code = 63700-6) 6 5-7 [facility] Leukocyte Tsayfajm5211-42-21 11:36:00* Test Item Value Reference Range Interpretation Comments Urine Leukocyte Esterase (test code = 5799-2) NEGATIVE NEGATIVE [facility] Gikppdy9894-81-55 11:36:00* Test Item Value Reference Range Interpretation Comments Urine Nitrite (test code = 25629-1) NEGATIVE NEGATIVE [facility] Dyykpfx3022-93-68 11:36:00* Test Item Value Reference Range Interpretation Comments Urine Protein (test code = 5804-0) NEGATIVE NEGATIVE [facility] Glucose (UA)2017-12-06 11:36:00* Test Item Value Reference Range Interpretation Comments Urine Glucose (UA) (test code = 2349-9) NEGATIVE NEGATIVE [facility] Tfefvaw7181-65-99 11:36:00* Test Item Value Reference Range Interpretation Comments Urine Ketones (test code = 42047-2) NEGATIVE NEGATIVE [facility] Olqqelgfttmn0729-83-57 11:36:00* Test Item Value Reference Range Interpretation Comments Urine Urobilinogen (test code = 04957-1) 0.2 0.2-1 [facility] Fsimgunac4231-16-14 11:36:00* Test Item Value Reference Range Interpretation Comments Urine Bilirubin (test code = 1978-6) NEGATIVE NEGATIVE [facility] Rcyjq4912-61-96 11:36:00* Test Item Value Reference Range Interpretation Comments Urine Blood (test code = 87085-4) NEGATIVE NEGATIVE [facility] Qirrf0791-94-30 11:36:00* Test Item Value Reference Range Interpretation Comments Urine Color (test code = 5778-6) YELLOW YELLOW [facility] Toqnxyb9112-09-97 11:36:00* Test Item Value Reference Range Interpretation Comments Urine Clarity (test code = 96929-5) CLEAR CLEAR [facility] Specific Adnpqqb4198-56-98 11:36:00 * Test Item Value Reference Range Interpretation Comments Urine Specific [place] (test code = 5811-5) 1.025 1.010-1.02 5 [facility] [id number] 11:36:00* Test Item Value Reference Range Interpretation Comments Urine pH (test code = 11949-5) 6 5-7 [facility] Leukocyte Zvxmzavf2524-48-49 11:36:00* Test Item Value Reference Range Interpretation Comments Urine Leukocyte Esterase (test code = 5799-2) NEGATIVE NEGATIVE [facility] Fpimzeo1586-54-80 11:36:00* Test Item Value Reference Range Interpretation Comments Urine Nitrite (test code = 64463-4) NEGATIVE NEGATIVE [facility] Mjikksa6506-74-90 11:36:00* Test Item Value Reference Range Interpretation Comments Urine Protein (test code = 5804-0) NEGATIVE NEGATIVE [facility] Glucose (UA)2017-12-06 11:36:00* Test Item Value Reference Range Interpretation Comments Urine Glucose (UA) (test code = 2349-9) NEGATIVE NEGATIVE [facility] Qelmwyf5880-46-53 11:36:00* Test Item Value Reference Range Interpretation Comments Urine Ketones (test code = 77968-4) NEGATIVE NEGATIVE [facility] Rwdwbcjjtfci2939-57-48 11:36:00* Test Item Value Reference Range Interpretation Comments Urine Urobilinogen (test code = 22806-1) 0.2 0.2-1 [facility] Ksbyndjyc0026-63-70 11:36:00* Test Item Value Reference Range Interpretation Comments Urine Bilirubin (test code = 1978-6) NEGATIVE NEGATIVE [facility] Dxrbg7880-73-43 11:36:00* Test Item Value Reference Range Interpretation Comments Urine Blood (test code = 79869-2) NEGATIVE NEGATIVE [facility]2017-12-05 20:06:00 [facility] [address] [place] [address] Patient Name: TAMIKA KELLY MR #: [id number] : 1940 Age/Sex: 76/F Req #: [id number] Adm Physician: Ordered by: REGGIE LEUNG [employer] Report #: [id number] Location: ER Room/Bed: Procedure: [id number] DX/CHEST SINGLE (NOT PORTAB LE) Exam Date: 12/05/17 Exam Time: 1949 REPORT STATUS: Signed EXAMINATION: CHEST SINGLE (NOT PORTABLE) INDICATION: COMPARISON: Chest radiograph 07/24/2011 FIND INGS: AP view TUBES and LINES: None. LUNGS: Low lung volumes. B ibasilar atelectasis, unchanged. Central pulmonary vascular congestion. PLEURA: No pleural effusion or pneumothorax. HEART AND MEDIASTINUM: Stab le mildly prominent cardiac silhouette. Mild calcifications in the aortic arch , unchanged. BONES AND SOFT TISSUES: Degenerative changes of both acromioc lavicular joints. Soft tissues are unremarkable. UPPER ABDOMEN: No free air under the diaphragm. IMPRESSION: Stable mild enlargement of the cardiac silhouette with associated central pulmonary congestion. Taylor d by: Dr. Karena Armijo M.D. on 12/05/2017 8:07 PM Dictated By: KARENA ARMIJO MD 06 Transcribed By: MARY on 12/05/172006 COPY TO: REGGIE HERNANDEZ NP
--- OUTSIDE RECORDS SUMMARY | 2020-02-12 16:48 | XMS REPORT | Continuity of Care Document ---
Author Author [facility] t Organization [facility] Address 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 Name Role Phone JAMIE STEPHEN MD PCP ROSSANA MCCULLOUGH Attphys Unavailable NAZIA HARRY Attphys Unavailable GENAROSowmya MALIN Attphys Unavailable Alhaji RICO Attphys Unavailable ROSSANA MCCULLOUGH Admphys Unavailable JAMIE STEPHEN Admphys Unavailable Payers Payer Name Policy Type Policy Number Effective Date Expiration Date S yann [employer] [id number] 2017 00:00:00 [facility] [employer] [id number] 2015 00:00:00 [facility] Problems Condition Name Condition Details Condition Category Status Onset Date Resolution Date Last Treatment Date Treating Clinician Comments Source Cellulitis of right groin Cellulitis of groin, right Problem Active [facility] Allergies, Adverse Reactions, Alerts Allergy Name Allergy Type Status Severity Reaction(s) Onset Date Inacti ve Date Treating Clinician Comments Source No Known Allergies DA Active U 2018-11-04 00:00:00 [facility] lactase DA Active [place] 2014-06-15 00:00:00 [facility] Medications Ordered Medication Name Filled Medication Name Start Date Stop Da te Current Medication? Ordering Clinician Indication Dosage Frequency Signature (SIG) Comments Components Source Alendronate Sodium 70 Mg Tablet Alendronate Sodium 70 Mg Tablet Yes 70 Weekly [facility] Furosemide (Lasix) 20 Mg Tablet Furosemide (Lasix) 20 Mg Tablet Yes 20 Daily [facility] Levothyroxine Sodium 50 Mcg Tablet Levothyroxine Sodium 50 Mcg Tablet Yes 50 Daily [facility] Metoprolol Tartrate 25 Mg Tablet Metoprolol Tartrate 25 Mg Tablet Yes 25 Twice A Day [facility] Oxybutynin Chloride (Oxybutynin Chloride Er) 5 Mg Tab. er.24 Oxybutynin Chloride (Oxybutynin Chloride Er) 5 Mg Tab.er.24 Yes 5 Bedtime [facility] Pravastatin Sodium 10 Mg Tablet Pravastatin Sodium 10 Mg Tablet Yes 10 Daily [facility] Clotrimazole/Betamethasone Dip (Lotrison e Cream) 15 Gm Cream..g., 45 Gm Topically Clotrimazole/Betamethasone Dip (Lotrison e Cream) 15 Gm Cream..g., 45 Gm Topically 2019-02-20 00:00:00 No 45 Twice A Day [facility] Fluconazole (Diflucan) 100 Mg Tablet, 100 Mg Oral Fluc onazole (Diflucan) 100 Mg Tablet, 100 Mg Oral 2019-02-20 00:00:00 No 100 Viet y [facility] Mirabegron (Myrbetriq) 50 Mg Tab.er.24h, 50 Mg Oral Mi rabegron (Myrbetriq) 50 Mg Tab.er.24h, 50 Mg Oral 2019-02-20 00:00:00 No 50 D aily [facility] Ramipril 5 Mg Capsule, 10 Mg Oral Ramipril 5 Mg Capsule, 10 Mg O ral 2019-02-20 00:00:00 No 10 Daily [facility] Diltiazem Hcl (Diltiazem Er) 90 Mg Cap.sr.12h, 90 Mg O ral Diltiazem Hcl (Diltiazem Er) 90 Mg Cap.sr.12h, 90 Mg Oral 2017-12-05 00:00:00 No 90 Twice A Day [facility] Esomeprazole Mag Trihydrate (Nexium) 40 Mg Capsule.dr, 40 Mg Oral Esomeprazole Mag Trihydrate (Nexium) 40 Mg Capsule.dr, 40 Mg Oral 2017-12-05 00: 00:00 No 40 [facility] Levothyroxine Sodium (Tirosint) 50 Mcg Capsule, 50 Mcg Oral Levothyroxine Sodium (Tirosint) 50 Mcg Capsule, 50 Mcg Oral 2017-12-05 00:00:00 No 50 [facility] Metoprolol Succinate 25 Mg Tab.sr.24h, 25 Mg Oral Meto prolol Succinate 25 Mg Tab.sr.24h, 25 Mg Oral 2017-12-05 00:00:00 No 25 T wice A Day [facility] Oxybutynin Chloride (Oxybutynin Chloride Er) 5 Mg Tab. er.24, 5 Mg Oral Oxybutynin Chloride (Oxybutynin Chloride Er) 5 Mg Tab.er.24, 5 Mg Oral 2017-12-05 00:00:00 No 5 Daily [facility] Simvastatin 40 Mg Tablet, 40 Mg Oral Simvastatin 40 Mg Tablet, 4 0 Mg Oral 2017-12-05 00:00:00 No 40 [facility] Procedures Procedure Date / Time Performed Performing Clinician [facility] Computed tomography of brain without radiopaque contrast 201 12-18-13 00:00:00 SILVIO WATKINS [facility] Encounters Start Date/Time End Date/Time Encounter Type [facility] Encounter ID Source 2019-02-20 14:06:00 2019-02-20 17:41:00 Departed Emergency Room 1 NAZIA HARRY [facility] [id number] [facility] 2018-01-14 13:13:00 2018-01-14 15:24:00 Departed Emergency Room 1 JESSICA LAM [facility] [id number] [facility] 2017-12-05 21:37:00 2017-12-12 15:27:00 Discharged Inpatient 1 ASHLEY RICO [facility] [id number] [facility] Results Test Description Test Time Test Comments Results Result Comments Source MRI BRAIN WO 2020-02-02 22:13:00 [facility] : 1940 Sex: F [facility] [address] [address] Patient Name: TAMIKA KELLY MR #: [id number] : 1940 Age/Sex: 79/F Req #: [id number] Adm Physician: ROSSANA MCCULLOUGH MD Ordered by: Rosa Mcwilliams SUMMER COUNSELOR Report #: [id number] Location: [facility] Room/Bed: [facility] Procedure: [id number] MRI/MRI BRAIN WO Exam Date: Exam Time: [...] NP CT ABDOMEN/PELVIS W 2020-02-02 12:14:00 [facility] 1940 Sex: F [place] [address] Patient Name: TAMIKA KELLY MR #: [id number] : 1940 Age/Sex: 79/F Req #: [id number] Adm Physician: Ordered by: NAZIA HARRY DO Report #: [id number] Location: ER Room/Bed: Procedure: [id number] CT/CT ABDOMEN/PELVIS W Exam Date: 02/02/20 Exam [...] DLP: 674 mGy*cm COMPLICATIONS: None INDICATION: Y [facility] [id number] 1150. COMPARISON: None. FINDINGS: LOWER THORAX: Calcified [...] DO CT BRAIN WO 2020-02-02 10:36:00 [facility] : 1940 Sex: F [place] [address] Patient Name: TAMIKA KELLY MR #: [id number] : 1940 Age/Sex: 79/F Req #: [id number] [facility] Physician: Ordered by: NAZIA HARRY DO Report #: [id number] Location: Room/Bed: Procedure: [id number] CT/CT BRAIN WO Exam Date: 02/02/20 Exam [...] NAZIA HARRY, CHEST SINGLE (PORTABLE) 2020-02-02 10:16:[address] [facility] : 1940 Sex: F [place] [address] Patient Name: TAMIKA KELLY MR #: [id number] : 1940 Age/Sex: 79/F Req #: [id number] Adm Physician: Ordered by: ANZIA HARRY DO Report #: [id number] Location: ER Room/Bed: Procedure: [id number] DX/CHEST SINGLE (PORTABLE) Exam Date: 02/02/20 Exam Time: 949 REPORT STATUS: Signed TECHNIQUE: Frontal view of the chest. INDICATION: Y AMS [id number] COMPARISON: 02/20/2019 DISCUSSION: Limited evaluation due [...] HARRY DO CT BRAIN WO 2019-02-20 17:05:00 [id number] [place] [address] Patient Name: TAMIKA KELLY MR #: [id number] : 1940 Age/Sex: 78/F Req #: [id number] Adm Physician: Ordered by: SILVIO WATKINS SUMMER COUNSELOR Report #: [id number] Location: ER Room/Bed: Procedure: [id number] CT/CT BRAIN WO Exam Date: 02/20/19 Exam [...] = Lactic Acid Level) 1.5 0.5- 2.0 [facility]ballProthrombin [id number] 16:08:00* Test Item Value Reference Range Interpretation Comments Prothrombin Time (test code = 5902-2) 13.0 11.9-14.5 [facility]ballProthromb Time International Ratio 2019-02-20 16:08:00* Test Item Value Reference Range Interpretation Comments Prothromb Time International Ratio (test code = 6301-6) 0.93 Oral Anticoagulant Therapy INR Values:1. Low Intensity Therapy 1.5 - 2.02 . Moderate Intensity Therapy 2.0 - 3.03. High Intensity Therapy(1) 2.5 - 3. 54. High Intensity Therapy(2) 3.0 - 4.05. Panic Value INR > 5.0 [facility]ballActivated Partial Thromboplast Time 2019-02-20 16:08:00* Test Item Value Reference Range Interpretation Comments Activated Partial Thromboplast Time (test code = 50171-1) 30.7 23.8-35.5 [facility]ballB-Type Natriuretic Abextqx5641-61-96 15:58:00* Test Item Value Reference Range Interpretation Comments B-Type Natriuretic Peptide (test code = 46010-4) 32.9 0-100 [facility]ballCreatine Kinase [id number] 15:58:00* Test Item Value Reference Range Interpretation Comments Creatine Kinase MB (test code = 08740-9) 1.00 0-5.0 [facility]ballTroponin I3068-07-42 15:58:00* Test Item Value Reference Range Interpretation Comments Troponin I (test code = TYQ8280) < 0.001 0-0.300 [facility]ballInfluenza Virus Types A,B Antigen 2019-02-20 15:54:00* Test Item Value Reference Range Interpretation Comments Influenza Virus Types A,B Antigen (test code = 26924-5) NEGATIVE NEGATIVE [facility] TomballUrine [id number] 15:50:00* Test Item Value Reference Range Interpretation Comments Urine WBC (test code = 5821-4) 0-5 0-5 [facility]ballUrine TPK5350-60-24 15:50:00* Test Item Value Reference Range Interpretation Comments Urine RBC (test code = 98440-3) NONE 0-5 [facility]ballUrine Itfgwpxb8858-99-94 15:50:00* Test Item Value Reference Range Interpretation Comments Urine Bacteria (test code = 59766-5) MANY NONE H [facility] TomballUrine Epithelial Ttvdn6382-16-28 15:50:00 * Test Item Value Reference Range Interpretation Comments Urine Epithelial Cells (test code = 71941-6) RARE NONE [facility] Ltylh7814-61-02 15:47:00* Test Item Value Reference Range Interpretation Comments Sodium Level (test code = 2951-2) 143 136-145 [facility]ballPotassium Udhlp5454-41-30 15:47:00* Test Item Value Reference Range Interpretation Comments Potassium Level (test code = 2823-3) 3.2 3.5-5.1 L [facility]ballChloride Lyjwb3359-34-84 15:47:00* Test Item Value Reference Range Interpretation Comments Chloride Level (test code = 2075-0) 101 98-107 [facility] TomballCarbon Dioxide Avcep0495-41-12 15:47:00* Test Item Value Reference Range Interpretation Comments Carbon Dioxide Level (test code = 2028-9) 31 22-29 H [facility] TomballAnion Bwd0716-97-26 15:47:00* Test Item Value Reference Range Interpretation Comments Anion Gap (test code = 85516-5) 14.2 8-16 [facility]ballBlood Urea Upxctozm9027-46-69 15:47:00* Test Item Value Reference Range Interpretation Comments Blood Urea Nitrogen (test code = 3094-0) 14 7-26 [facility]ballCreatinine2019-11-14 15:47:00* Test Item Value Reference Range Interpretation Comments Creatinine (test code = 2160-0) 0.76 0.57-1.11 [facility]ballBUN/Creatinine Pjsln0487-51-33 15:47:00* Test Item Value Reference Range Interpretation Comments BUN/Creatinine Ratio (test code = 3097-3) 18 6-25 [facility] TomballEstimat Glomerular Filtration Rate 2019-02-20 15:47:00* Test Item Value Reference Range Interpretation Comments Estimat Glomerular Filtration Rate (test code = 305091324) > 60 >60 Ranges were taken from the National Kidney Disease Education Program and the [facility] literature.Reference ranges:60 or greater: Palhgx92-40 ( for 3 consecutive months): Chronic kidney disease 15 or less: Kidney failureHCA [facility] Healthcare TomballGlucose Hslzj3351-89-98 15:47:00* Test Item Value Reference Range Interpretation Comments Glucose Level (test code = SNE6518) 136 74-118 H [facility] TomballCalcium Ndeej2685-64-90 15:47:00* Test Item Value Reference Range Interpretation Comments Calcium Level (test code = 29818-3) 9.4 8.4-10.2 [facility]ballTotal Qwygrykrm8945-67-42 15:47:00* Test Item Value Reference Range Interpretation Comments Total Bilirubin (test code = 1975-2) 0.5 0.2-1.2 [facility] TomballAspartate Amino Transf (AST/SGOT) 2019-02-20 15:47:00* Test Item Value Reference Range Interpretation Comments Aspartate Amino Transf (AST/SGOT) (test code = Aspartate Amino Transf (AST/SGOT)) 21 5-34 [facility]ballAlanine Aminotransferase (ALT/SGPT) 2019-02-20 15:47:00* Test Item Value Reference Range Interpretation Comments Alanine Aminotransferase (ALT/SGPT) (test code = 1742-6) 17 0-55 [facility]ballTotal Mswkxpb6790-30-62 15:47:00* Test Item Value Reference Range Interpretation Comments Total Protein (test code = 2885-2) 7.4 6.5-8.1 [facility] TomballAlbumin2019-11-14 15:47:00* Test Item Value Reference Range Interpretation Comments Albumin (test code = 1751-7) 3.1 3.5-5.0 L [facility]ballGlobulin2019-11-14 15:47:00* Test Item Value Reference Range Interpretation Comments Globulin (test code = 49868-3) 4.3 2.3-3.5 H [facility] TomballAlbumin/Globulin Exarv8980-99-69 15:47:00 * Test Item Value Reference Range Interpretation Comments Albumin/Globulin Ratio (test code = 1759-0) 0.7 0.8-2.0 L [facility]ballAlkaline Dmoremezxzn9856-22-02 15:47:00* Test Item Value Reference Range Interpretation Comments Alkaline Phosphatase (test code = 6768-6) 84 40-150 [facility]ballCreatine Yzksyk2204-73-94 15:47:00* Test Item Value Reference Range Interpretation Comments Creatine Kinase (test code = 2157-6) 20 29-168 L [facility] TomballUrine Cmbco7540-49-54 15:45:00* Test Item Value Reference Range Interpretation Comments Urine Color (test code = 5778-6) YELLOW YELLOW [facility]ballUrine Awvnlxi0596-59-31 15:45:00* Test Item Value Reference Range Interpretation Comments Urine Clarity (test code = 75943-0) CLOUDY CLEAR H [facility] TomballUrine Specific Dxpsbdc8522-71-75 15:45:00 * Test Item Value Reference Range Interpretation Comments Urine Specific [place] (test code = 5811-5) 1.020 1.010-1.02 5 [facility]ballUrine qH6184-12-68 15:45:00* Test Item Value Reference Range Interpretation Comments Urine pH (test code = 85335-8) 6 5-7 [facility] TomballUrine Leukocyte Fbplvecx8664-53-68 15:45:00* Test Item Value Reference Range Interpretation Comments Urine Leukocyte Esterase (test code = 65842-6) SMALL NEGATIV E [facility] TomballUrine Aztnpen5197-98-35 15:45:00* Test Item Value Reference Range Interpretation Comments Urine Nitrite (test code = 50159-8) NEGATIVE NEGATIVE [facility] TomballUrine Iaagdou2139-24-29 15:45:00* Test Item Value Reference Range Interpretation Comments Urine Protein (test code = 65370-4) NEGATIVE NEGATIVE [facility] Glucose (UA)2019-02-20 15:45:00* Test Item Value Reference Range Interpretation Comments Urine Glucose (UA) (test code = 89373-2) NEGATIVE NEGATIVE [facility]ballUrine Rvpabvx7478-20-40 15:45:00* Test Item Value Reference Range Interpretation Comments Urine Ketones (test code = 95376-1) NEGATIVE NEGATIVE [facility] TomballUrine Kbppcgdhnzoe0344-04-86 15:45:00* Test Item Value Reference Range Interpretation Comments Urine Urobilinogen (test code = 17170-9) 0.2 0.2-1 [facility] TomballUrine Pfolzshnb8345-65-55 15:45:00* Test Item Value Reference Range Interpretation Comments Urine Bilirubin (test code = 1977-8) NEGATIVE NEGATIVE [facility] TomballUrine Lzbfd3023-41-09 15:45:00* Test Item Value Reference Range Interpretation Comments Urine Blood (test code = 66702-5) NEGATIVE NEGATIVE [facility] TomballWhite Blood Nvkjc0490-47-16 15:44:00* Test Item Value Reference Range Interpretation Comments White Blood Count (test code = 6690-2) 7.47 4.8-10.8 [facility]ballRed Blood Gmmlj6002-94-09 15:44:00* Test Item Value Reference Range Interpretation Comments Red Blood Count (test code = 789-8) 4.86 3.6-5.1 [facility]ballHemoglobin2019-11-14 15:44:00* Test Item Value Reference Range Interpretation Comments Hemoglobin (test code = 61066-0) 14.5 12.0-16.0 [facility]ballHematocrit2019-11-14 15:44:00* Test Item Value Reference Range Interpretation Comments Hematocrit (test code = 4544-3) 42.9 34.2-44.1 [facility] TomballMean Corpuscular Odikxo2811-35-95 15:44:00* Test Item Value Reference Range Interpretation Comments Mean Corpuscular Volume (test code = 787-2) 88.3 81-99 [facility]ballMean Corpuscular Aqaosqxhto6401-20-83 15:44:00* Test Item Value Reference Range Interpretation Comments Mean Corpuscular Hemoglobin (test code = 785-6) 29.8 28-32 [facility] TomballMean Corpuscular Hemoglobin Concent 2019-02-20 15:44:00* Test Item Value Reference Range Interpretation Comments Mean Corpuscular Hemoglobin Concent (test code = 786-4) 33.8 31-35 [facility] TomballRed Cell Distribution Eslmg1022-93-17 15:44:00* Test Item Value Reference Range Interpretation Comments Red Cell Distribution Width (test code = 17662-9) 13.2 11.7 -14.4 [facility] TomballPlatelet Bzubw2620-19-74 15:44:00* Test Item Value Reference Range Interpretation Comments Platelet Count (test code = 777-3) 237 140-360 [facility]ballNeutrophils (%) (Auto)2019-02-20 15:44:00 * Test Item Value Reference Range Interpretation Comments Neutrophils (%) (Auto) (test code = 97081-4) 67.5 38.7-80.0 [facility]ballLymphocytes (%) (Auto)2019-02-20 15:44:00 * Test Item Value Reference Range Interpretation Comments Lymphocytes (%) (Auto) (test code = 736-9) 22.6 18.0-39.1 [facility]ballMonocytes (%) (Auto)2019-02-20 15:44:00* Test Item Value Reference Range Interpretation Comments Monocytes (%) (Auto) (test code = 5905-5) 7.6 4.4-11.3 [facility]ballEosinophils (%) (Auto)2019-02-20 15:44:00 * Test Item Value Reference Range Interpretation Comments Eosinophils (%) (Auto) (test code = 713-8) 1.9 0.0-6.0 [facility]ballBasophils (%) (Auto)2019-02-20 15:44:00* Test Item Value Reference Range Interpretation Comments Basophils (%) (Auto) (test code = 706-2) 0.1 0.0-1.0 [facility]ballIM GRANULOCYTES %2019-02-20 15:44:00* Test Item Value Reference Range Interpretation Comments IM GRANULOCYTES % (test code = IM GRANULOCYTES %) 0.3 0.0- 1.0 [facility]ballNeutrophils # (Auto)2019-02-20 15:44:00* Test Item Value Reference Range Interpretation Comments Neutrophils # (Auto) (test code = 751-8) 5.0 2.1-6.9 [facility]ballLymphocytes # (Auto)2019-02-20 15:44:00* Test Item Value Reference Range Interpretation Comments Lymphocytes # (Auto) (test code = 76569-1) 1.7 1.0-3.2 [facility]ballMonocytes # (Auto)2019-02-20 15:44:00* Test Item Value Reference Range Interpretation Comments Monocytes # (Auto) (test code = 742-7) 0.6 0.2-0.8 [facility]ballEosinophils # (Auto)2019-02-20 15:44:00* Test Item Value Reference Range Interpretation Comments Eosinophils # (Auto) (test code = 711-2) 0.1 0.0-0.4 [facility]ballBasophils # (Auto)2019-02-20 15:44:00* Test Item Value Reference Range Interpretation Comments Basophils # (Auto) (test code = 704-7) 0.0 0.0-0.1 [facility] TomballAbsolute Immature Granulocyte (auto 2019-02-20 15:44:00* Test Item Value Reference Range Interpretation Comments Absolute Immature Granulocyte (auto (lisa t code = Absolute Immature Granulocyte (auto) 0.02 0-0.1 [facility] TomballAmmonia2019-11-14 15:44:00* Test Item Value Reference Range Interpretation Comments Ammonia (test code = 02476-0) 41 31-123 [facility] TomballAmylase Vvnni0878-11-14 15:43:00* Test Item Value Reference Range Interpretation Comments Amylase Level (test code = 1798-8) 59 25-125 [facility] TomballANKLE 3 + VIEWS WBRYI8436-16-76 15:17:00 [place] [address] Patient Name: TAMIKA KELLY MR #: [id number] : [birth year] Age/Sex: 78/F Req #: [id number] Adm Physician: Ordered by: SILVIO WATKINS SUMMER COUNSELOR Report #: [id number] Location: ER Room/Bed: Procedure: [id number] DX/ANKLE 3 + VIEWS RIGHT Exam Date: [...] WATKINS NP CHEST SINGLE (PORTABLE) 2019-02-20 15:15:00 [place] [address] Patient Name: TAMIKA KELLY MR #: [id number] : 1940 Age/Sex: 78/F Req #: [id number] Adm Physician: Ordered by: SILVIO WATKINS NP Report #: [id number] Location: ER Room/Bed: Procedure: [id number] DX/CHEST SINGLE (PORTABLE) Exam Date: 02/20/19 Exam [...] FRAGOSO MD 15 COPY TO: XAVIER WATKINS SUMMER COUNSELOR - XR ANKLE 3 + V [id number] 18:39:00 FAX: Donaldo Reid MD [phone] [place]: B St: ADM FAX: Stefano Craven MD Name: TAMIKA KELLY [facility] : 1940 Age/S: 77/F [address] [facility] Unit #: [id number] Loc: JO[place]rike [place] [address] Phys: Stefano Craven MD Acct: [id number] Dis Date: Status: ADM IN PHONE #: [phone] Exam Date: 11/04/2018 181 FAX #: [phone] Reason: pain, EXAMS: CPT CODE: [id number] XR ANKLE 3 + V RT 11392 REASON FOR EXAM: pain, EXAM ORDER DATE: [...] BillVTL Orig Print D/T: S: 0 11/04/2018 (816) PAGE 1 Signed Re port - XR FOOT 3 + V YY2251-45-13 18:39:00 FAX: Donaldo Reid MD [phone] [place]: St: ADM FAX: Stefano Craven MD Name: TAMIKA KELLY [facility] : 1940 Age/S: 77/F [address] [facility] Unit #: [id number] Loc: [place] [address] Phys: Stefano Craven MD Acct: [id number] Dis Date: Status: ADM IN PHONE #: [phone] Exam Date: 11/04/2018 181 FAX #: [phone] Reason: pain, EXAMS: CPT CODE: [id number] XR FOOT 3 + V RT [address]379 REASON FOR EXAM: pain, EXAM ORDER DATE: [...] By: Lance Orig Print D/T: S: 11/04/2018 (2533) PAGE 1 Signed Report - CT LOWER EXTRM W/O C [id number] 17:16:00 Name: TAMIKA KELLY [facility] : 1940 Age/S: 77 / F [address] [facility]: [id number] Loc: [place] [address] Phys: Stefano Craven MD Acct: [id number] Dis Date: Status: REG ER PHONE #: [phone] Exam Date: 11/04/2018 1708 FAX #: [phone] Reason: ambulatory dysfunction EXAMS: CPT CODE: [id number] [place] L[place] EXTRM W/[place] [address] REASON FOR EXAM: ambulatory dysfunction EXAM ORDER [...] (171) OliveL Orig Print D/T: S: 11/04/2018 (8225) PAGE 1 Signed Report URINALYSIS AQGKITXU9343-00-48 17:12:00* Test Item Value Reference Range Interpretation [...] Clean Catch- XR FEMUR MIN 2 VWS [id number] 17:12:00 FAX: Donaldo Reid MD [phone] [place]: St: [facility] FAX: Stefano Craven MD Name: TAMIKA KELLY [facility] : 1940 Age/S: 77/F [address] Unit #: [id number] Loc: [place] [address] Phys: Stefano Craven MD Acct: [id number] Dis Date: Status: REG ER PHONE #: [phone] Exam Date: 11/04/2018 1639 FAX #: [phone] Reason: fall, pain, refuses to ambulate EXAMS: CPT CODE: [id number] XR FEMUR MIN [address] [place] [address] REASON FOR EXAM: fall, pain, refuses to [...] IMPRESSION: Degenerative changes. No acute findings at 2462 Reported and signed by: Luis Garcia M.D. CC: Donaldo Marcial MD; Stefano Craven MD Technologist: RICCI Marquez; YODIT KAISER RT(R) Trnscrd Date/Time/By: 11/04/2018 (171 2) : By: BillVTL Orig Print D/T: S: 11/04/2018 (5807) PAGE 1 Signed Report - XR FEMUR MIN 2 VWS [id number] 17:12:00 FAX: Donaldo Reid MD [phone] [place]: St: REG FAX: Stefano Craven MD Name: TAMIKA KELLY [facility] : 1940 Age/S: 77/F [address] [facility] Unit #: [id number] Loc: [place] [address] Phys: Stefano Craven MD Acct: [id number] Dis Date: Status: REG ER PHONE #: [phone] Exam Date: 11/04/2018 1639 FAX #: [phone] Reason: fall, pain, refuses to ambulate EXAMS: CPT CODE: [id number] XR FEMUR MIN [address] [place] [address] REASON FOR EXAM: fall, pain, refuses to [...] IMPRESSION: Degenerative changes. No acute findings at 9401 Reported and signed by: Luis Garcia M.D. CC: Donaldo Buchanan MD; Stefano Craven MD Technologist: RICCI BLACKMAN(R) Trnscrd Date/Time/By: 11/04/2018 (25 03) : By: [email or web address] Orig Print D/T: S: 11/04/2018 (7053) PAGE 1 Signed Report - XR TIBIA/FIBULA 2 V [id number] 17:11:00 FAX: Donaldo Reid MD [phone] [place]: B St: REG FAX: Stefano Craven MD Name: TAMIKA KELLY [facility] : 1940 Age/S: 77/F [address] [facility] Unit #: [id number] Loc: [place] [address] Phys: Stefano Craven MD Acct: [id number] Dis Date: Status: REG ER PHONE #: [phone] Exam Date: 11/04/2018 1639 FAX #: [phone] Reason: fall, pain, refuses to ambulate EXAMS: CPT CODE: [id number] XR TIBIA/[place] [address] [place] [address] REASON FOR EXAM: fall, pain, refuses to [...] YODIT KAISER RT( R) Trnscrd Date/Time/By: 11/04/2018 (6995) : By: [email or web address] Orig Print D/T: S: 11/04/2018 (5056) PAGE 1 Signed Report BASIC METABOLIC [id number] 15:47:00* Test Item Value Reference Range Interpretation [...] CA) 8.9 mg/dL 8.5-10.1 N HEPATIC FUNCTION [id number] 15:47:00* Test Item Value Reference Range Interpretation [...] CK) 105 IUnit/L 26-208 N THYROID STIMULATING [id number] 15:47:00* Test Item Value Reference Range Interpretation Comments THYROID STIMULATING HORMONE (test code = TSH) 4.440 uIU/mL 0.36-3.7 4 H TSH REFERENCE RANGES: EUTHYROID: 0.35 - 4.3 mIU/mL HYPO : > 5.5 mIU/mL HYPER : < 0.35 mIU/mL [id number] 15:47:00* Test Item Value Reference Range Interpretation Comments TROPONIN-I (test code = TROPI) <0.015 ng/mL 0-0.045 N BASIC METABOLIC [id number] 15:05:00* Test Item Value Reference Range Interpretation [...] code = CA) mg/dL 8.5-10.1 HEPATIC FUNCTION [id number] 15:05:00* Test Item Value Reference Range Interpretation [...] code = CK) IUnit/L 26-208 THYROID STIMULATING [id number] 15:05:00* Test Item Value Reference Range Interpretation Comments THYROID STIMULATING HORMONE (test code = TSH) uIU/mL 0.36-3.7 4 [id number] 15:05:00* Test Item Value Reference Range Interpretation Comments TROPONIN-I (test code = TROPI) ng/mL 0-0.045 CBC W/AUTO [id number] 14:51:00* Test Item Value Reference Range Interpretation [...] (test code = MDIFF) NO CBC W/AUTO [id number] 14:43:00* Test Item Value Reference Range Interpretation [...] code = BA#) K/mm3 0.0-0.2 TROPONIN I [id number] 14:25:00* Test Item Value Reference Range Interpretation [...] used. - XR HIP W/PEL UNI 2+V [id number] 12:51:00 FAX: Chris Fernandez MD [phone] [place]: MD St: REG FAX: Donaldo Reid MD [phone] Name: TAMIKA KELLY [facility] : 1940 Age/S: 77/F [address] [facility] [facility] N Unit #: [id number] Loc: [facility] B Phys: Chris Fernandez MD [place], [place] [address] Acct: [id number] Dis Date: Status: REG ER PHONE #: Exam Date: 11/02/2018 1227 FAX #: Reason: pain s/p fall EXAMS: CPT CODE: [id number] XR HIP W/PEL UNI 2+V RT [address] HISTORY: pain s/p fall EXAM: AP pelvis [...] the bony pelvis and right hip. at 6781 Reported and signed by: Alex Nick MD CC: Chris Fernandez MD; Donaldo Rodriguez MD Technologist: TENNILLE VILLARREAL RT(R)(CT) Trnscrd Date/Time/By: 11/02/2018 (8810) : By: [email or web address] Orig Print D/T: S: 11/02/2018 (8980) PAGE 1 Signed Report - XR KNEE 1 OR 2 V [id number] 12:46:00 FAX: Chris Fernandez MD [phone] [place]: MD St: REG FAX: Y Donaldo Rodriguez MD [phone] Name: TAMIKA KELLY [facility] : 1940 Age/S: 77/F [address] [facility] Unit #: [id number] Loc: [facility] [address] Phys: Chris Fernandez MD [place], [place] [address] Acct: [id number] Dis Date: Status: REG ER PHONE #: Exam Date: 11/02/2018 1227 FAX #: Reason: pain s/p fall EXAMS: CPT CODE: [id number] XR KNEE 1 OR 2 [place] [address] CLINICAL HISTORY: pain s/p fall TECHNIQUE: AP [...] vascular calcifications in both lower extremities. at 5814 Reported and signed by: Alex Nick MD CC: Chris Fernandez MD; Donaldo Rodriguez MD Technologist: TENNILLE VILLARREAL RT(R)(CT) Trnscrd Date/Time/By: 11/02/2018 (4402) : By: [email or web address] Orig Print D/T: S: 11/02/2018 (2434) PAGE 1 Signed Report - XR KNEE 1 OR 2 V [id number] 12:46:00 FAX: Chris Fernandez MD [phone] [place]: MD St: REG FAX: Y Donaldo Rodriguez MD [phone] Name: TAMIKA KELLY [facility] : 1940 Age/S: 77/F [address] [facility] [facility] N Unit #: [id number] Loc: [facility] [address] Phys: Chris Fernandez MD [place], [place] [address] Acct: [id number] Dis Date: Status: REG ER PHONE #: Exam Date: 11/02/2018 1227 FAX #: Reason: pain s/p fall EXAMS: CPT CODE: [id number] XR KNEE 1 OR 2 V RT [address]91 CLINICAL HISTORY: pain s/p fall TECHNIQUE: AP [...] AGUILAR ONS RT(R)(CT) Trnscrd Date/Time/By: 11/02/2018 ( 7940) : By: [email or web address] Orig Print D/T: S: 11/02/2018 (4454) PAGE 1 Signed Report - CT HEAD/BRAIN W/O [id number] 22:31:00 Name: TAMIKA KELLY [facility] : 1940 Age/S: 77 / F [address] [facility] [facility] N Unit #: [id number] Loc: [address] Phys: Tiana Perales MD [place], [place] [address] Acct: [id number] Dis Date: Status: REG ER PHONE #: Exam Date: 11/01/2018 2147 FAX #: Reason: FALL EXAMS: CPT CODE: [id number] CT HEAD/BRAIN W/O CONT 78295 HISTORY: FALL TECHNIQUE: Noncontrast 2.5 mm axial [...] (2230) [email or web address] Orig Print D/T: S: 11/01/2018 (2351) PAGE [address] BRAIN [id number] 14:15:00 [place] [address] Patient Name: TAMIKA KELLY MR #: [id number] : 1940 Age/Sex: 77/F Req #: [id number] Adm Physician: Ordered by: TORIE LAWRENCE NP Report #: [id number] Location: [facility]/Bed: Procedure: [id number] CT/CT BRAIN WO Exam Date : 01/14/18 [...] 2:21 PM Dictated By: BARB ADDISON MD [facility] Signed By: BARB ADDISON MD on 01/14/181420 Transcribed By: MARY on 01/14/181420 COPY TO: TORIE LAWRENCE NP Sodium Level 2017-12-12 05:28:00* Test Item Value Reference Range Interpretation Comments Sodium Level (test code = 2951-2) 136 136-145 [facility]ballPotassium Bbdee8896-10-08 05:28:00* Test Item Value Reference Range Interpretation Comments Potassium Level (test code = 2823-3) 4.0 3.5-5.1 [facility] TomballChloride Wicld0879-42-98 05:28:00* Test Item Value Reference Range Interpretation Comments Chloride Level (test code = 2075-0) 102 98-107 [facility] TomballCarbon Dioxide Zouxd8850-88-66 05:28:00* Test Item Value Reference Range Interpretation Comments Carbon Dioxide Level (test code = 2028-9) 26 22-29 [facility] TomballAnion Tmy4706-53-95 05:28:00* Test Item Value Reference Range Interpretation Comments Anion Gap (test code = 85874-1) 12.0 8-16 [facility] TomballBlood Urea Eysoyizs4354-58-66 05:28:00* Test Item Value Reference Range Interpretation Comments Blood Urea Nitrogen (test code = 3094-0) 16 7-26 [facility] TomballCreatinine2018-09-05 05:28:00* Test Item Value Reference Range Interpretation Comments Creatinine (test code = 2160-0) 0.83 0.57-1.11 [facility] TomballBUN/Creatinine Ucrrl3485-97-24 05:28:00* Test Item Value Reference Range Interpretation Comments BUN/Creatinine Ratio (test code = 3097-3) 19 - [facility] TomballEstimat Glomerular Filtration Rate 2017-12-12 05:28:00* Test Item Value Reference Range Interpretation Comments Estimat Glomerular Filtration Rate (test code = 66390-9) 60- >60 Ranges were taken from the National Kidney Disease Education Program and the [facility] literature.Reference ranges:60 or greater: Qndhlm26-01 ( for 3 consecutive months): Chronic kidney disease 15 or less: Kidney failureHCA Houston Healthcare TomballGlucose Awbsb3658-71-86 05:28:00* Test Item Value Reference Range Interpretation Comments Glucose Level (test code = YPX4909) 98 74-118 [facility] TomballCalcium Jcpff1479-91-09 05:28:00* Test Item Value Reference Range Interpretation Comments Calcium Level (test code = 47430-4) 9.4 8.4-10.[address] [facility] Njpty9658-71-34 05:28:00* Test Item Value Reference Range Interpretation Comments Sodium Level (test code = 2951-2) 136 136-145 [facility] TomballPotassium Vtyvq3367-68-19 05:28:00* Test Item Value Reference Range Interpretation Comments Potassium Level (test code = 2823-3) 4.0 3.5-5.1 [facility] TomballChloride Nxitf3084-08-10 05:28:00* Test Item Value Reference Range Interpretation Comments Chloride Level (test code = 2075-0) 102 98-107 [facility] TomballCarbon Dioxide Rgvch4125-97-11 05:28:00* Test Item Value Reference Range Interpretation Comments Carbon Dioxide Level (test code = 2028-9) 26 22-29 [facility] TomballAnion Klt1238-63-44 05:28:00* Test Item Value Reference Range Interpretation Comments Anion Gap (test code = 61481-1) 12.0 8-16 [facility] TomballBlood Urea Wwaymdxt4726-27-82 05:28:00* Test Item Value Reference Range Interpretation Comments Blood Urea Nitrogen (test code = 3094-0) 16 7-26 [facility] TomballCreatinine2018-09-05 05:28:00* Test Item Value Reference Range Interpretation Comments Creatinine (test code = 2160-0) 0.83 0.57-1.11 [facility] TomballBUN/Creatinine Eqnuh9679-09-16 05:28:00* Test Item Value Reference Range Interpretation Comments BUN/Creatinine Ratio (test code = 3097-3) 19 6- [facility] TomballEstimat Glomerular Filtration Rate 2017-12-12 05:28:00* Test Item Value Reference Range Interpretation Comments Estimat Glomerular Filtration Rate (test code = 938392292) 60- >60 Ranges were taken from the National Kidney Disease Education Program and the [facility] literature.Reference ranges:60 or greater: Xqacgn02-99 ( for 3 consecutive months): Chronic kidney disease 15 or less: Kidney failureHCA Houston Healthcare TomballGlucose Etyie2620-31-46 05:28:00* Test Item Value Reference Range Interpretation Comments Glucose Level (test code = NBG2134) 98 74-118 [facility] TomballCalcium Earub8385-00-32 05:28:00* Test Item Value Reference Range Interpretation Comments Calcium Level (test code = 72922-3) 9.4 8.4-10.2 [facility] TomballWhite Blood Aauek0794-79-74 05:25:00* Test Item Value Reference Range Interpretation Comments White Blood Count (test code = 6690-2) 6.41 4.8-10.8 [facility] TomballRed Blood Bubyx2363-68-15 05:25:00* Test Item Value Reference Range Interpretation Comments Red Blood Count (test code = 789-8) 4.38 3.6-5.1 [facility] TomballHemoglobin2018-09-05 05:25:00* Test Item Value Reference Range Interpretation Comments Hemoglobin (test code = 72810-3) 13.4 12.0-16.0 [facility] TomballHematocrit2018-09-05 05:25:00* Test Item Value Reference Range Interpretation Comments Hematocrit (test code = 4544-3) 40.2 34.2-44.1 [facility] TomballMean Corpuscular Ijnenc6185-72-44 05:25:00* Test Item Value Reference Range Interpretation Comments Mean Corpuscular Volume (test code = 787-2) 91.8 81-99 [facility] TomballMean Corpuscular Umawizbnze9876-96-27 05:25:00* Test Item Value Reference Range Interpretation Comments Mean Corpuscular Hemoglobin (test code = 785-6) 30.6 28-32 [facility] Corp[facility] Hemoglobin Concent 2017-12-12 05:25:00* Test Item Value Reference Range Interpretation Comments Mean Corpuscular Hemoglobin Concent (test code = 786-4) 33.3 31-35 [facility] TomballRed Cell Distribution Bbnwj8911-67-75 05:25:00* Test Item Value Reference Range Interpretation Comments Red Cell Distribution Width (test code = 31818-3) 13.3 11.7 -14.4 [facility] TomballPlatelet Ddatt5315-33-77 05:25:00* Test Item Value Reference Range Interpretation Comments Platelet Count (test code = 777-3) 198 140-360 [facility] TomballNeutrophils (%) (Auto)2017-12-12 05:25:00 * Test Item Value Reference Range Interpretation Comments Neutrophils (%) (Auto) (test code = 59596-7) 63.6 38.7-80.0 [facility] TomballLymphocytes (%) (Auto)2017-12-12 05:25:00 * Test Item Value Reference Range Interpretation Comments Lymphocytes (%) (Auto) (test code = 736-9) 26.2 18.0-39.1 [facility] TomballMonocytes (%) (Auto)2017-12-12 05:25:00* Test Item Value Reference Range Interpretation Comments Monocytes (%) (Auto) (test code = 5905-5) 7.8 4.4-11.3 [facility] TomballEosinophils (%) (Auto)2017-12-12 05:25:00 * Test Item Value Reference Range Interpretation Comments Eosinophils (%) (Auto) (test code = 713-8) 1.9 0.0-6.0 [facility] TomballBasophils (%) (Auto)2017-12-12 05:25:00* Test Item Value Reference Range Interpretation Comments Basophils (%) (Auto) (test code = 706-2) 0.3 0.0-1.0 [facility] TomballIM GRANULOCYTES %2017-12-12 05:25:00* Test Item Value Reference Range Interpretation Comments IM GRANULOCYTES % (test code = IM GRANULOCYTES %) 0.2 0.0- 1.0 [facility] TomballNeutrophils # (Auto)2017-12-12 05:25:00* Test Item Value Reference Range Interpretation Comments Neutrophils # (Auto) (test code = 751-8) 4.1 2.1-6.9 [facility] TomballLymphocytes # (Auto)2017-12-12 05:25:00* Test Item Value Reference Range Interpretation Comments Lymphocytes # (Auto) (test code = 59028-6) 1.7 1.0-3.2 [facility] TomballMonocytes # (Auto)2017-12-12 05:25:00* Test Item Value Reference Range Interpretation Comments Monocytes # (Auto) (test code = 742-7) 0.5 0.2-0.8 [facility] TomballEosinophils # (Auto)2017-12-12 05:25:00* Test Item Value Reference Range Interpretation Comments Eosinophils # (Auto) (test code = 711-2) 0.1 0.0-0.4 [facility] TomballBasophils # (Auto)2017-12-12 05:25:00* Test Item Value Reference Range Interpretation Comments Basophils # (Auto) (test code = 704-7) 0.0 0.0-0.1 [facility] TomballAbsolute Immature Granulocyte (auto 2017-12-12 05:25:00* Test Item Value Reference Range Interpretation Comments Absolute Immature Granulocyte (auto (lisa t code = Absolute Immature Granulocyte (auto) 0.01 0-0.1 [facility] TomballWhite Blood Hsddi7156-96-64 05:25:00* Test Item Value Reference Range Interpretation Comments White Blood Count (test code = 6690-2) 6.41 4.8-10.8 [facility] TomballRed Blood Ximxt1061-24-39 05:25:00* Test Item Value Reference Range Interpretation Comments Red Blood Count (test code = 789-8) 4.38 3.6-5.1 [facility] TomballHemoglobin2018-09-05 05:25:00* Test Item Value Reference Range Interpretation Comments Hemoglobin (test code = 31269-2) 13.4 12.0-16.0 [facility] TomballHematocrit2018-09-05 05:25:00* Test Item Value Reference Range Interpretation Comments Hematocrit (test code = 4544-3) 40.2 34.2-44.1 [facility] TomballMean Corpuscular Wgpuyw5585-26-46 05:25:00* Test Item Value Reference Range Interpretation Comments Mean Corpuscular Volume (test code = 787-2) 91.8 81-99 [facility] TomballMean Corpuscular Fshqplwzje0748-43-20 05:25:00* Test Item Value Reference Range Interpretation Comments Mean Corpuscular Hemoglobin (test code = 785-6) 30.6 28-32 [facility] TomballMean Corpuscular Hemoglobin Concent 2017-12-12 05:25:00* Test Item Value Reference Range Interpretation Comments Mean Corpuscular Hemoglobin Concent (test code = 786-4) 33.3 31-35 [facility] TomballRed Cell Distribution Wlbyq6229-33-51 05:25:00* Test Item Value Reference Range Interpretation Comments Red Cell Distribution Width (test code = 82595-4) 13.3 11.7 -14.4 [facility] TomballPlatelet Lyqnh3711-37-05 05:25:00* Test Item Value Reference Range Interpretation Comments Platelet Count (test code = 777-3) 198 140-360 [facility] TomballNeutrophils (%) (Auto)2017-12-12 05:25:00 * Test Item Value Reference Range Interpretation Comments Neutrophils (%) (Auto) (test code = 99188-0) 63.6 38.7-80.0 [facility] TomballLymphocytes (%) (Auto)2017-12-12 05:25:00 * Test Item Value Reference Range Interpretation Comments Lymphocytes (%) (Auto) (test code = 736-9) 26.2 18.0-39.1 [facility] TomballMonocytes (%) (Auto)2017-12-12 05:25:00* Test Item Value Reference Range Interpretation Comments Monocytes (%) (Auto) (test code = 5905-5) 7.8 4.4-11.3 [facility] TomballEosinophils (%) (Auto)2017-12-12 05:25:00 * Test Item Value Reference Range Interpretation Comments Eosinophils (%) (Auto) (test code = 713-8) 1.9 0.0-6.0 [facility] TomballBasophils (%) (Auto)2017-12-12 05:25:00* Test Item Value Reference Range Interpretation Comments Basophils (%) (Auto) (test code = 706-2) 0.3 0.0-1.0 [facility] TomballIM GRANULOCYTES %2017-12-12 05:25:00* Test Item Value Reference Range Interpretation Comments IM GRANULOCYTES % (test code = IM GRANULOCYTES %) 0.2 0.0- 1.0 [facility] TomballNeutrophils # (Auto)2017-12-12 05:25:00* Test Item Value Reference Range Interpretation Comments Neutrophils # (Auto) (test code = 751-8) 4.1 2.1-6.9 [facility] TomballLymphocytes # (Auto)2017-12-12 05:25:00* Test Item Value Reference Range Interpretation Comments Lymphocytes # (Auto) (test code = 12179-1) 1.7 1.0-3.2 [facility] TomballMonocytes # (Auto)2017-12-12 05:25:00* Test Item Value Reference Range Interpretation Comments Monocytes # (Auto) (test code = 742-7) 0.5 0.2-0.8 [facility] TomballEosinophils # (Auto)2017-12-12 05:25:00* Test Item Value Reference Range Interpretation Comments Eosinophils # (Auto) (test code = 711-2) 0.1 0.0-0.4 [facility] TomballBasophils # (Auto)2017-12-12 05:25:00* Test Item Value Reference Range Interpretation Comments Basophils # (Auto) (test code = 704-7) 0.0 0.0-0.1 [facility] TomballAbsolute Immature Granulocyte (auto 2017-12-12 05:25:00* Test Item Value Reference Range Interpretation Comments Absolute Immature Granulocyte (auto (lisa t code = Absolute Immature Granulocyte (auto) 0.01 0-0.1 [facility] TomballMagnesium Exqkd1738-62-85 05:52:00* Test Item Value Reference Range Interpretation Comments Magnesium Level (test code = 83081-8) 2.1 1.3-2.1 [facility] TomballMagnesium Jpfjc0864-44-92 05:52:00* Test Item Value Reference Range Interpretation Comments Magnesium Level (test code = 49236-3) 2.1 1.3-2.1 [facility] TomballTotal Hhmctsfss6724-04-25 05:45:00* Test Item Value Reference Range Interpretation Comments Total Bilirubin (test code = 1975-2) 0.8 0.2-1.2 [facility] TomballAspartate Amino Transf (AST/SGOT) 2017-12-10 05:45:00* Test Item Value Reference Range Interpretation Comments Aspartate Amino Transf (AST/SGOT) (test code = Aspartate Amino Transf (AST/SGOT)) 24 5-34 [facility] TomballAlanine Aminotransferase (ALT/SGPT) 2017-12-10 05:45:00* Test Item Value Reference Range Interpretation Comments Alanine Aminotransferase (ALT/SGPT) (test code = 1742-6) 22 0-55 [facility] TomballTotal Exzxnfh3342-54-15 05:45:00* Test Item Value Reference Range Interpretation Comments Total Protein (test code = 2885-2) 6.5 6.5-8.1 [facility] TomballAlbumin2018-09-03 05:45:00* Test Item Value Reference Range Interpretation Comments Albumin (test code = 1751-7) 2.9 3.5-5.0 L [facility] TomballGlobulin2018-09-03 05:45:00* Test Item Value Reference Range Interpretation Comments Globulin (test code = 46173-3) 3.6 2.3-3.5 H [facility] TomballAlbumin/Globulin Nawnh8731-95-79 05:45:00 * Test Item Value Reference Range Interpretation Comments Albumin/Globulin Ratio (test code = 1759-0) 0.8 0.8-2.0 [facility] TomballAlkaline Omyzxvjgzwg5997-01-93 05:45:00* Test Item Value Reference Range Interpretation Comments Alkaline Phosphatase (test code = 6768-6) 66 40-150 [facility] TomballTriglycerides Kvrnp9630-10-21 05:45:00* Test Item Value Reference Range Interpretation Comments Triglycerides Level (test code = 2571-8) 72 0-149 [facility] TomballCholesterol Fytzh6055-76-16 05:45:00* Test Item Value Reference Range Interpretation Comments Cholesterol Level (test code = 2093-3) 159 0-199 Less than 200 mg/dL Low Ikzx313 - 239 mg/dL Borderline Jxmw664 m g/dl and greater High Risk [facility] TomballLDL Vussimanwej8297-05-40 05:45:00* Test Item Value Reference Range Interpretation Comments LDL Cholesterol (test code = 2089-1) 78 60-130 [facility] TomballHDL Ebcfsvtfgjr8711-60-63 05:45:00* Test Item Value Reference Range Interpretation Comments HDL Cholesterol (test code = 2085-9) 67 40-60 H [facility] TomballCholesterol/HDL Bvgyn9857-79-71 05:45:00 * Test Item Value Reference Range Interpretation Comments Cholesterol/HDL Ratio (test code = 9830-1) 2.4 3.0-3.6 L [facility] TomballTotal Fggauhbdr9655-62-77 05:45:00* Test Item Value Reference Range Interpretation Comments Total Bilirubin (test code = 1975-2) 0.8 0.2-1.2 [facility] TomballAspartate Amino Transf (AST/SGOT) 2017-12-10 05:45:00* Test Item Value Reference Range Interpretation Comments Aspartate Amino Transf (AST/SGOT) (test code = Aspartate Amino Transf (AST/SGOT)) 24 5-34 [facility] TomballAlanine Aminotransferase (ALT/SGPT) 2017-12-10 05:45:00* Test Item Value Reference Range Interpretation Comments Alanine Aminotransferase (ALT/SGPT) (test code = 1742-6) 22 0-55 [facility] TomballTotal Jvmlegm2737-74-87 05:45:00* Test Item Value Reference Range Interpretation Comments Total Protein (test code = 2885-2) 6.5 6.5-8.1 [facility] TomballAlbumin2018-09-03 05:45:00* Test Item Value Reference Range Interpretation Comments Albumin (test code = 1751-7) 2.9 3.5-5.0 L [facility] TomballGlobulin2018-09-03 05:45:00* Test Item Value Reference Range Interpretation Comments Globulin (test code = 73038-7) 3.6 2.3-3.5 H [facility] TomballAlbumin/Globulin Lwiba4612-77-48 05:45:00 * Test Item Value Reference Range Interpretation Comments Albumin/Globulin Ratio (test code = 1759-0) 0.8 0.8-2.0 [facility] TomballAlkaline Ckuyuczvaca0488-06-97 05:45:00* Test Item Value Reference Range Interpretation Comments Alkaline Phosphatase (test code = 6768-6) 66 40-150 [facility] TomballTriglycerides Flmre1920-59-23 05:45:00* Test Item Value Reference Range Interpretation Comments Triglycerides Level (test code = 2571-8) 72 0-149 [facility] TomballCholesterol Zyplq4203-52-18 05:45:00* Test Item Value Reference Range Interpretation Comments Cholesterol Level (test code = 2093-3) 159 0-199 Less than 200 mg/dL Low Wjdf333 - 239 mg/dL Borderline Zbvs764 m g/dl and greater High Risk [facility] TomballLDL Qpodunozdss6791-60-22 05:45:00* Test Item Value Reference Range Interpretation Comments LDL Cholesterol (test code = 2089-1) 78 60-130 [facility] TomballHDL Txuixscmqfd0241-66-57 05:45:00* Test Item Value Reference Range Interpretation Comments HDL Cholesterol (test code = 2085-9) 67 40-60 H [facility] TomballCholesterol/HDL Lrrts1491-06-62 05:45:00 * Test Item Value Reference Range Interpretation Comments Cholesterol/HDL Ratio (test code = 9830-1) 2.4 3.0-3.6 L [facility] TomballThyroid Stimulating Hormone (TSH) 2017-12-10 05:40:00* Test Item Value Reference Range Interpretation Comments Thyroid Stimulating Hormone (TSH) (test code = 60475-4) 2.509 0.350-4.940 [facility] TomballThyroid Stimulating Hormone (TSH) 2017-12-10 05:40:00* Test Item Value Reference Range Interpretation Comments Thyroid Stimulating Hormone (TSH) (test code = 61378-5) 2.509 0.350-4.940 [facility] TomballHemoglobin A1c Ixaqrja8320-81-11 06:36:00 * Test Item Value Reference Range Interpretation Comments Hemoglobin A1c Percent (test code = Hemoglobin A1c Percent) 5.4 4.0-7.0 [facility] TomballHemoglobin A1c Qcloucs8620-12-70 06:36:00 * Test Item Value Reference Range Interpretation Comments Hemoglobin A1c Percent (test code = Hemoglobin A1c Percent) 5.4 4.0-7.0 [facility] TomballB-Type Natriuretic Crnqrgr9599-72-33 05:15:00* Test Item Value Reference Range Interpretation Comments B-Type Natriuretic Peptide (test code = 61653-7) 40.9 0-100 [facility] TomballB-Type Natriuretic Muwidxb9663-57-35 05:15:00* Test Item Value Reference Range Interpretation Comments B-Type Natriuretic Peptide (test code = 88972-1) 40.9 0-100 [facility] [id number] 11:50:00* Test Item Value Reference Range Interpretation Comments Urine WBC (test code = 5821-4) 0-5 0-5 [facility] [id number] 11:50:00* Test Item Value Reference Range Interpretation Comments Urine RBC (test code = 19256-9) 0-5 0-5 [facility] Lcbxnnxs5650-01-51 11:50:00* Test Item Value Reference Range Interpretation Comments Urine Bacteria (test code = 07429-6) NONE NONE [facility] Epithelial Ziduj5310-74-20 11:50:00 * Test Item Value Reference Range Interpretation Comments Urine Epithelial Cells (test code = 97057-6) RARE NONE [facility] [id number] 11:50:00* Test Item Value Reference Range Interpretation Comments Urine WBC (test code = 5821-4) 0-5 0-5 [facility] [id number] 11:50:00* Test Item Value Reference Range Interpretation Comments Urine RBC (test code = 40641-8) 0-5 0-5 [facility] Cyblmxty4689-51-85 11:50:00* Test Item Value Reference Range Interpretation Comments Urine Bacteria (test code = 11937-6) NONE NONE [facility] Epithelial Oolpd8985-74-03 11:50:00 * Test Item Value Reference Range Interpretation Comments Urine Epithelial Cells (test code = 76163-9) RARE NONE [facility] Awfog7777-63-17 11:36:00* Test Item Value Reference Range Interpretation Comments Urine Color (test code = 5778-6) YELLOW YELLOW [facility] Nqfrlmv5651-51-74 11:36:00* Test Item Value Reference Range Interpretation Comments Urine Clarity (test code = 01028-2) CLEAR CLEAR [facility] Specific Drvhppe7568-68-30 11:36:00 * Test Item Value Reference Range Interpretation Comments Urine Specific [place] (test code = 5811-5) 1.025 1.010-1.02 5 [facility] [id number] 11:36:00* Test Item Value Reference Range Interpretation Comments Urine pH (test code = 54200-5) 6 5-7 [facility] Leukocyte Snwgfads5636-18-06 11:36:00* Test Item Value Reference Range Interpretation Comments Urine Leukocyte Esterase (test code = 5799-2) NEGATIVE NEGATIVE [facility] Pvzxrdd9937-87-96 11:36:00* Test Item Value Reference Range Interpretation Comments Urine Nitrite (test code = 52802-4) NEGATIVE NEGATIVE [facility] Sarrdji6570-17-43 11:36:00* Test Item Value Reference Range Interpretation Comments Urine Protein (test code = 5804-0) NEGATIVE NEGATIVE [facility] Glucose (UA)2017-12-06 11:36:00* Test Item Value Reference Range Interpretation Comments Urine Glucose (UA) (test code = 2349-9) NEGATIVE NEGATIVE [facility] Bzufpat4200-98-25 11:36:00* Test Item Value Reference Range Interpretation Comments Urine Ketones (test code = 47142-9) NEGATIVE NEGATIVE [facility] Rlzyojjkoxet3156-07-53 11:36:00* Test Item Value Reference Range Interpretation Comments Urine Urobilinogen (test code = 94951-0) 0.2 0.2-1 [facility] Jnahqbkfl1739-53-53 11:36:00* Test Item Value Reference Range Interpretation Comments Urine Bilirubin (test code = 1978-6) NEGATIVE NEGATIVE [facility] Xyvxu3929-72-45 11:36:00* Test Item Value Reference Range Interpretation Comments Urine Blood (test code = 68297-6) NEGATIVE NEGATIVE [facility] Upmwp2392-65-81 11:36:00* Test Item Value Reference Range Interpretation Comments Urine Color (test code = 5778-6) YELLOW YELLOW [facility] Gwlfven3160-94-95 11:36:00* Test Item Value Reference Range Interpretation Comments Urine Clarity (test code = 04350-3) CLEAR CLEAR [facility] Specific Sujyssu1239-54-47 11:36:00 * Test Item Value Reference Range Interpretation Comments Urine Specific [place] (test code = 5811-5) 1.025 1.010-1.02 5 [facility] [id number] 11:36:00* Test Item Value Reference Range Interpretation Comments Urine pH (test code = 32230-2) 6 5-7 [facility] Leukocyte Iiywnrps9804-54-52 11:36:00* Test Item Value Reference Range Interpretation Comments Urine Leukocyte Esterase (test code = 5799-2) NEGATIVE NEGATIVE [facility] Jvyfxrg3752-92-20 11:36:00* Test Item Value Reference Range Interpretation Comments Urine Nitrite (test code = 42096-9) NEGATIVE NEGATIVE [facility] Lhakwer4421-79-77 11:36:00* Test Item Value Reference Range Interpretation Comments Urine Protein (test code = 5804-0) NEGATIVE NEGATIVE [facility] Glucose (UA)2017-12-06 11:36:00* Test Item Value Reference Range Interpretation Comments Urine Glucose (UA) (test code = 2349-9) NEGATIVE NEGATIVE [facility] Yshlfhp7930-74-97 11:36:00* Test Item Value Reference Range Interpretation Comments Urine Ketones (test code = 50081-4) NEGATIVE NEGATIVE [facility] Towexkfaepab8032-32-54 11:36:00* Test Item Value Reference Range Interpretation Comments Urine Urobilinogen (test code = 21870-6) 0.2 0.2-1 [facility] Etbpoewek5689-31-11 11:36:00* Test Item Value Reference Range Interpretation Comments Urine Bilirubin (test code = 1978-6) NEGATIVE NEGATIVE [facility] Opdfw6149-66-12 11:36:00* Test Item Value Reference Range Interpretation Comments Urine Blood (test code = 19323-1) NEGATIVE NEGATIVE [facility]NOT [facility])2017-12-05 20:06:00 [facility] [address] [place] [address] Patient Name: TAMIKA KELLY MR #: [id number] : 1940 Age/Sex: 76/F Req #: [id number] Adm Physician: Ordered by: REGGIE LEUNG [employer] COUNSELOR Report #: [id number] Location: ER Room/Bed: Procedure: [id number] DX/CHEST SINGLE (NOT PORTAB LE) Exam Date: [...]
== END 2020-02-06 17:47 ==
LOC: ER 09:57 → ERHOLD 11:31 → MED/SURG3 12:47
PROVIDERS: ADMIT Internal Medicine; ATTEND Internal Medicine
DX: R62.7 Adult failure to thrive (principal); F03.91 Unspecified dementia, unspecified severity, with behavioral disturbance; R53.83 Other fatigue; I10 Essential (primary) hypertension; E03.9 Hypothyroidism, unspecified; K21.9 Gastro-esophageal reflux disease without esophagitis; R41.82 Altered mental status, unspecified; Z68.36 Body mass index [BMI] 36.0-36.9, adult; E78.5 Hyperlipidemia, unspecified; E87.6 Hypokalemia; Z66 Do not resuscitate; E66.9 Obesity, unspecified; F29 Unspecified psychosis not due to a substance or known physiological condition; Z11.59 Encounter for screening for other viral diseases
CPT/HCPCS: 36415 ×4; 70450; 70551; 71045; 74177; 80048 ×2; 80053 ×2; 81001; 82140; 82550 ×2; 82553 ×2; 83690; 83735; 83880; 84100; 84443; 84484 ×2; 85025 ×4; 93880; 97110 ×2; 97139 ×4; 97162; 97530 ×4; 99251; 99285; G0378 ×5; J0692; J1630; J2060 ×4; Q9967; U0002